=== PATIENT | male | born 1955 | race Caucasian/White ===

== ENCOUNTER → 2020-01-30 15:20 | Outpatient (BNVA) | payer OTHER, SELFPAY | PROVIDERS: PCP Nurse Practitioner Family; Visit Provider Nurse Practitioner | DX: J40 Bronchitis, not specified as acute or chronic (principal); E78.5 Hyperlipidemia, unspecified; J41.0 Simple chronic bronchitis; R05 Cough; J44.1 Chronic obstructive pulmonary disease with (acute) exacerbation; J43.9 Emphysema, unspecified; I25.10 Atherosclerotic heart disease of native coronary artery without angina pectoris; Z87.891 Personal history of nicotine dependence | CPT/HCPCS: 80053; 80061; 85025 ==

== ENCOUNTER → 2021-01-27 09:17 | Outpatient (BNVA) | payer OTHER, SELFPAY | PROVIDERS: PCP Nurse Practitioner Family; Visit Provider Nurse Practitioner Family | DX: E78.5 Hyperlipidemia, unspecified (principal) | CPT/HCPCS: 80061; 84450 ==

== ENCOUNTER → 2021-11-18 16:10 | Outpatient (BNVA) | payer MEDICARE, SELFPAY | PROVIDERS: PCP Nurse Practitioner Family; Visit Provider Nurse Practitioner | DX: J43.9 Emphysema, unspecified (principal); U09.9 Post COVID-19 condition, unspecified | CPT/HCPCS: 71046; 80053; 85025; 85379 ==

== ENCOUNTER → 2023-01-21 10:17 | Outpatient (BNVA) | payer MEDICARE, SELFPAY | PROVIDERS: PCP Nurse Practitioner Family; Visit Provider Nurse Practitioner | DX: J43.9 Emphysema, unspecified (principal); R07.89 Other chest pain | CPT/HCPCS: 71046; 80053; 85025 ==

== ENCOUNTER → 2023-01-22 08:56 | Outpatient (BNVA) | payer MEDICARE, SELFPAY | PROVIDERS: PCP Nurse Practitioner Family; Visit Provider Nurse Practitioner | DX: R73.9 Hyperglycemia, unspecified (principal) | CPT/HCPCS: 83036 ==

== ENCOUNTER 2023-02-04 13:05 | Outpatient (CLI) | payer MEDICARE, SELFPAY ==
--- NOTE | 2023-02-04 13:30 | CTR_ITS ---
PROCEDURE INFORMATION: Exam: CT Chest With Contrast; Diagnostic Exam date and time: 02/04/2023 3:29 PM Age: 67 years old Clinical indication: Abnormal findings; Abnormal radiologic finding of the abdomen; Abnormal radiologic exam of lung or chest; Prior surgery; Surgery type: Gb, coronary; Additional info: R93.89 - abnormal findings on diagnostic imaging of other. . . TECHNIQUE: Imaging protocol: Diagnostic computed tomography of the chest with contrast. Radiation optimization: All CT scans at this facility use at least one of these dose optimization techniques: automated exposure control; mA and/or kV adjustment per patient size (includes targeted exams where dose is matched to clinical indication); or iterative reconstruction. Contrast material: OMNI 350; Contrast volume: 100 ml; Contrast route: INTRAVENOUS (IV); REPORTING DATA: Count of CT and Cardiac NM exams in prior 12 months: This patient has received 0 known CTs and 0 known cardiac nuclear medicine studies in the 12 months prior to the current study. COMPARISON: CR XR chest 2V* [id number] 11/18/2021 4:10 PM RADIATION DOSE METRICS: Total DLP (mGy-cm): 848.74 FINDINGS: Lungs: Left upper lobe 2.6 cm nodule abutting the major fissure. Additional left upper lobe 4.4 mm pulmonary nodule abutting the major fissure, series 3, image 34. Emphysematous changes. Pleural spaces: Unremarkable. No pneumothorax. No pleural effusion. Heart: Unremarkable. No cardiomegaly. No pericardial effusion. Coronary arteries: Coronary artery atherosclerotic calcifications. Lymph nodes: Unremarkable. No enlarged lymph nodes. Vasculature: Unremarkable. No aortic aneurysm. Bones/joints: T7 vertebral body compression fracture without retropulsion of bony fragments with some underlying sclerosis, potentially concerning for metastatic disease given the left upper lobe nodule, MRI could further characterize this. Soft tissues: Unremarkable. PET/CT, or tissue sampling.(Reference: Perla) 2. Emphysematous changes. 3. Coronary artery atherosclerotic calcifications. 4. T7 vertebral body compression fracture without retropulsion of bony fragments with some underlying sclerosis, potentially concerning for metastatic disease given the left upper lobe nodule, MRI could further characterize this. COMMENTS: In the absence of a history or active diagnosis of lung cancer, it is recommended that this patient with emphysema be evaluated for enrollment in a low dose CT lung cancer screening program. REFERENCES: Perla Goodman et al. Guidelines for Management of Incidental Pulmonary Nodules Detected on CT Images: From the Fleischner Society 2017. Radiology. 2017;284(1):228-243. PROCEDURE INFORMATION: Exam: CT Abdomen And Pelvis With Contrast Exam date and time: 02/04/2023 3:29 PM Age: 67 years old Clinical indication: Abnormal findings; Abnormal radiologic finding of the abdomen; Abnormal radiologic exam of lung or chest; Prior surgery; Surgery type: Gb, coronary; Additional info: R93.89 - abnormal findings on diagnostic imaging of other. . . TECHNIQUE: Imaging protocol: Computed tomography of the abdomen and pelvis with contrast. Radiation optimization: All CT scans at this facility use at least one of these dose optimization techniques: automated exposure control; mA and/or kV adjustment per patient size (includes targeted exams where dose is matched to clinical indication); or iterative reconstruction. Contrast material: OMNI 350; Contrast volume: 100 ml; Contrast route: INTRAVENOUS (IV); REPORTING DATA: Count of CT and Cardiac NM exams in prior 12 months: This patient has received 0 known CTs and 0 known cardiac nuclear medicine studies in the 12 months prior to the current study. COMPARISON: CR XR chest 2V* [id number] 11/18/2021 4:10 PM RADIATION DOSE METRICS: Total DLP (mGy-cm): 848.74 FINDINGS: Liver: Hepatic steatosis. Gallbladder and bile ducts: Cholecystectomy. Pancreas: Normal. No ductal dilation. Spleen: Normal. No splenomegaly. Adrenal glands: Right adrenal 23 mm indeterminate nodule, dedicated adrenal imaging could further characterize this. Kidneys and ureters: Two right kidney punctate nonobstructing calyceal stones. Bilateral renal cysts, negative for follow-up advised. Stomach and bowel: Constipation. Constipation. Appendix: No evidence of appendicitis. Intraperitoneal space: Unremarkable. No free air. No significant fluid collection. Vasculature: Unremarkable. No abdominal aortic aneurysm. Lymph nodes: Unremarkable. No enlarged lymph nodes. Urinary bladder: Unremarkable as visualized. Reproductive: Unremarkable as visualized. Bones/joints: Unremarkable. No acute fracture. Soft tissues: Unremarkable. CT/CT chest abdpel w/*[id number] IMPRESSION: 1. Left upper lobe 2.6 cm nodule abutting the major fissure. Highly suspicious nodule(s). Additional left upper lobe 4.4 mm pulmonary nodule abutting the major fissure, series 3, image 34. Consider non-emergent IMPRESSION: 1. Right adrenal 23 mm indeterminate nodule, dedicated adrenal imaging could further characterize this. 2. Hepatic steatosis. 3. Cholecystectomy. 4. Constipation. 5. Two right kidney punctate nonobstructing calyceal stones. 6. Bilateral renal cysts, negative for follow-up advised. 7. Constipation. COMMENTS: Consistent with the [employer] [employer]'s Incidental Findings Committee white paper (J Am Tiara Radiol 2018): Any incidental renal lesion less than 1 cm or classified as too small to characterize, or any incidental cystic renal lesion characterized as simple-appearing, is likely benign. No follow-up imaging is recommended for these lesions per consensus recommendations based on imaging criteria.
[2023-02-04] MEDS: iohexol 350 mg/mL 500 mL Btl (per mL) IV (15:26)
[2023-02-04] MEDS: iohexol 350 mg/mL 500 mL Btl (per mL) PO (15:27)
== END 2023-02-04 13:06 | disposition home or self-care (01) ==
PROVIDERS: PCP Nurse Practitioner Family; Visit Provider Nurse Practitioner
DX: R93.89 Abnormal findings on diagnostic imaging of other specified body structures (principal); Z87.891 Personal history of nicotine dependence; R91.8 Other nonspecific abnormal finding of lung field; K76.0 Fatty (change of) liver, not elsewhere classified; Z90.49 Acquired absence of other specified parts of digestive tract; K59.00 Constipation, unspecified; N20.0 Calculus of kidney; N28.1 Cyst of kidney, acquired
CPT/HCPCS: 71260; 74177; Q9967

== ENCOUNTER 2023-02-09 12:25 | Outpatient (CLI) | payer MEDICARE, SELFPAY ==
--- NOTE | 2023-02-09 13:00 | MR_ITS ---
WS: [id number] MRI THORACIC SPINE noncontrast. HISTORY: S22.000A - Wedge compression fracture of unspecified thor... COMPARISON: CT 02/04/2023 TECHNIQUE: Multiplanar sequences are performed in sagittal and axial planes. Moderate increase in thoracic kyphosis. Posterior alignment is otherwise normal. Diffuse increased T2 signal throughout the seventh thoracic vertebral body. No retropulsion. Mild anterior wedging by 10% . Normal signal within the cord. T1-2: Normal. T2-3: Normal. T3-4: Bilateral facet arthritis. T4-5: Normal. T5-6: Mild facet joint arthritis. T6-7: Normal. T7-8: Bilateral facet joint arthritis. T8-9: Normal. T9-10: Moderate facet joint arthritis encroaching towards the thecal sac. T10-11: Moderate bilateral facet joint arthritis encroaching into the thecal sac. Mild central and f oraminal stenosis. T11-12: Bilateral facet joint arthritis. Mild foraminal narrowing. Mild thickening and nodularity of the RIGHT adrenal gland. MR/MR thoracic spin wo con* [id number] IMPRESSION: 1. Acute 10% compression fracture T7 with no retropulsion. 2. Additional facet joint arthritis throughout the thoracic spine as above. 3. Mild central and bilateral foraminal stenosis at T10-11. 4. Moderate increase in thoracic kyphosis.
== END 2023-02-09 12:26 | disposition home or self-care (01) ==
PROVIDERS: PCP Nurse Practitioner; Visit Provider Nurse Practitioner
DX: S22.000A Wedge compression fracture of unspecified thoracic vertebra, initial encounter for closed fracture (principal); X58.XXXA Exposure to other specified factors, initial encounter; M47.814 Spondylosis without myelopathy or radiculopathy, thoracic region; M48.04 Spinal stenosis, thoracic region; M40.294 Other kyphosis, thoracic region
CPT/HCPCS: 72146

== ENCOUNTER 2023-03-06 05:51 | Outpatient (CLI) | payer MEDICARE, SELFPAY ==
--- NOTE | 2023-03-06 | PETR_ITS ---
PROCEDURE INFORMATION: Exam: PET/CT Skull Base to Mid-thigh Exam date and time: 03/06/2023 10:20 AM Age: 67 years old Clinical indication: Screening exam; Prior surgery; Surgery date: 6+ months; Surgery type: Gb, coronary; Additional info: Nonspecific findings of lung field LABS AND CLINICAL REPORTS: Glucose: 128 mg/dl Treatment strategy for malignancy (PET staging): Initial Staging (PI) TECHNIQUE: Imaging protocol: Following at least four-hour fasting and following the injection of radiopharmaceutical, low dose CT images were obtained. Then, PET images were obtained. Attenuation corrected images were constructed using the CT scan. Fused images of PET and CT were reviewed. The standardized uptake values (SUV) reported below are maximum values within a region of interest, expressed in gm/ml. Exam includes orbital meatal line to mid-thigh. Radiopharmaceutical: 10.98 mCi F-18 FDG (Fluorodeoxyglucose), IV. Time of imaging post radiopharmaceutical administration: 59.1 minutes. Injection site: Not specified. COMPARISON: CT chest abdpel 02/04/2023. FINDINGS: Brain: Visualized brain has normal physiologic uptake. Pharynx: No abnormal uptake. Larynx: No abnormal uptake. Lungs, pleura and trachea: In the right upper lobe, in the posteroinferior aspect of the apicoposterior segment, a hypermetabolic malignant mass abuts the major fissure. It is 2.5 x 2.0 x 2.2 cm (transverse x ant-post x craniocaudal) (axial image 72). Its SUV max is 8.9. The lungs are otherwise clear. Bilateral hilar and mediastinal calcifications indicate remote granulomatous disease. There are scattered small calcified granulomas in both lungs. Heart: Normal physiologic uptake. Mediastinal space: No abnormal uptake. Liver: Contrary to the previous report, there is no hepatic steatosis. Mean hepatic density is 57 HU. No hepatic mass. Gallbladder and bile ducts: Cholecystectomy. Pancreas: No abnormal uptake. Spleen: No splenomegaly. No abnormal uptake. Multiple splenic calcifications are consistent with remote granulomatous disease. Adrenal glands: A right adrenal metastasis is 3.1 x 2.0 x 3.2 cm (transverse x ant-post x craniocaudal). Its SUVmax is 10.2. The left adrenal is normal. Kidneys and ureters: There are three 2 mm nonobstructing calyceal stones in the right kidney. Simple appearing renal cysts. Four cysts in the left kidney measure between 1.1 and 1.5 cm. The kidneys and ureters are otherwise unremarkable. Stomach and bowel: No abnormal uptake. Vasculature: There is moderate calcific atherosclerosis of the abdominal aorta and iliac arteries. There is no aneurysm. Lymph nodes: Left hilar malignant lymphadenopathy has a short axis of 1.1 cm and an SUV max of 8.0. There are no other FDG avid lymph nodes in the neck, chest, abdomen or pelvis. Bones/joints: A metastasis throughout the T7 vertebral body and left pedicle has an SUV max of 14.2. It is 3.1 x 3.3 x 2.5 cm (transverse x ant-post x craniocaudal). There is a 25% anterior wedge compression pathologic fracture of the T7 vertebral body. Posterior vertebral height is maintained. Mild concave T7 superior endplate fracture. A metastasis in the right L5 pedicle and transverse process is 3.2 x 1.6 x 1.3 cm. Its SUVmax is 8.6. Soft tissues: No metabolically active areas. [id number] IMPRESSION: 1. In the right upper lobe, a 2.5 cm malignant tumor has an SUV max of 8.9. 2. Left hilar malignant lymphadenopathy has SUV max of 8.0. 3. A 3.3 cm metastasis in T7 vertebra has an SUV max of 14.2. There is a 25% anterior compression pathologic fracture. 4. A 3.2 cm right adrenal metastasis has an SUV max of 10.2. 5. A 3.2 cm metastasis in the right L5 pedicle and transverse process has an SUV max of 8.6.
== END 2023-03-06 05:52 | disposition home or self-care (01) ==
PROVIDERS: PCP Nurse Practitioner; Visit Provider Nurse Practitioner
DX: C34.11 Malignant neoplasm of upper lobe, right bronchus or lung (principal); C77.1 Secondary and unspecified malignant neoplasm of intrathoracic lymph nodes; C79.71 Secondary malignant neoplasm of right adrenal gland; C79.51 Secondary malignant neoplasm of bone
CPT/HCPCS: 78815; A9552

== ENCOUNTER → 2023-03-23 13:18 | Outpatient (BNVA) | payer MEDICARE, SELFPAY | PROVIDERS: PCP Nurse Practitioner; Visit Provider Orthopaedic Surgery | DX: S22.000A Wedge compression fracture of unspecified thoracic vertebra, initial encounter for closed fracture (principal); W14.XXXA Fall from tree, initial encounter | CPT/HCPCS: 72070; 99204 ==

== ENCOUNTER 2023-03-23 14:00 | Oncology outpatient (recurring) (ONCR) | payer MEDICARE, SELFPAY ==
[2023-03-23 14:45] VITALS: BP 142/82; PULSE 79; RESP 18; TEMP 36.5; O2SAT 95
== END 2023-04-16 23:59 | disposition home or self-care (01) ==
PROVIDERS: PCP Nurse Practitioner; Visit Provider Internal Medicine Medical Oncology
DX: Z01.818 Encounter for other preprocedural examination (principal)
CPT/HCPCS: 36415; 99205

== ENCOUNTER → 2023-03-31 10:02 | Outpatient (BNVA) | payer MEDICARE, SELFPAY | PROVIDERS: PCP Nurse Practitioner; Visit Provider Family Medicine | DX: Z01.818 Encounter for other preprocedural examination (principal); E11.65 Type 2 diabetes mellitus with hyperglycemia | CPT/HCPCS: 80053; 83036; 85025 ==

== ENCOUNTER 2023-04-09 07:16 | Day surgery (SDC) | payer MEDICARE, SELFPAY ==
[2023-04-02 10:18] VITALS: BMI 25.2
--- NOTE | 2023-04-02 13:28 | P.ANESASSM_ITS ---
Pre-Anesthetic Assessment Height/Weight: Height 1.83 m Weight 84.368 kg Operation Date: 04/09/23 11:00 Proposed Procedures p Kyphoplasty with osteocool with biopsy:[id number],S22.000A(Not Applicable) - Ronal Cerda, Social Tobacco Airway Submandibular: within normal limits Cervical ROM: within normal limits Mallampati: Class II Pulmonary Chronic Obstructive Pulmonary Disease CV/HEM Coronary Artery Disease (s/p stents) and Hypertension Metabolic Diabetes Mellitus and Hyperlipidemia Musc/el Lower Back Pain and Osteoarthritis/DJD Anesthetic Plan ASA status: 3 Anesthesia: General Medications/Allergies Home Medications Medication Instructions Recorded Confirmed Last Taken Type albuterol sulfate 90 mcg/actuation 2 puff inhalation Q6H PRN 01/30/20 04/02/23 Unknown Rx aerosol inhaler (ProAir HFA) shortness of breath or wheezing #18 grams atorvastatin 40 mg tablet (Lipitor) 40 mg PO DAILY 01/30/20 04/02/23 04/01/23 History Disposable nebulizer circuit #1 ea 11/18/21 03/31/23 Unknown Rx nebulizers #1 ea 11/18/21 03/31/23 Unknown Rx fluticasone fur. 100 mcg-umeclid 1 inh inhalation Q24H #60 ea 01/21/23 04/02/23 04/02/23 Rx 62.5 mcg-vilant 25 mcg inhalat.powder (Trelegy Ellipta) blood sugar diagnostic (OneTouch #50 ea 01/25/23 03/31/23 Unknown Rx Ultra Test strips) blood-glucose meter (OneTouch #1 ea 01/25/23 03/31/23 Unknown Rx Ultra2 Meter kit) lancets (OneTouch UltraSoft #100 ea 01/25/23 03/31/23 Unknown Rx Lancets) metoprolol tartrate 100 mg tablet 25 mg PO BID 02/08/23 04/02/23 04/02/23 History aspirin 81 mg tablet,delayed 81 mg PO BID 03/18/23 04/02/23 04/02/23 History release lisinopril 10 1 tab PO DAILY 03/18/23 04/02/23 04/01/23 History mg-hydrochlorothiazide 12.5 mg tablet Allergies Allergy/AdvReac Type Severity Reaction Status Date / Time amoxicillin Allergy Severe ALGY-Rash Verified 03/31/23 13:54 Penicillins Allergy Severe ALGY-Rash Verified 03/31/23 13:54 bupropion [From Wellbutrin] AdvReac Severe ADR-Itching Verified 03/31/23 13:54 [facility] Anesthesia Medical History COPD (chronic obstructive pulmonary disease) with emphysema Coronary artery disease Diabetes mellitus with hyperglycemia, without long-term current use of insulin Hypertension Personal history of nicotine dependence Surgical History History of appendectomy History of cholecystectomy History of coronary artery stent placement Family History Other CAD (coronary artery disease) Cancer Hyperlipidemia Hypertension Denies family history of Bleeding disorder Social History Smoking and tobacco status: heavy tobacco smoker cigarettes Packs smoked per day: 2 [ Other cigarette details: smoked x 50+ years] Second hand smoke exposure: Yes Smoking risk assessment/counseling performed?: No Alcohol intake: current Alcohol intake frequency: holidays/special occasions only Desire information about alcohol rehabilitation?: No Counseling given: No Substance/Drug Use: unknown Desire information about substance/drug rehabilitation?: No Counseling given: No Adopted: No Caregiver/support person: No Lives independently: Yes Household members: none Housing: House Marital status: Number of children: 1 Number of grandchildren: 3 service: No Current occupational status: retired Do you think of yourself as: Straight/Heterosexual Current gender identity: Male Data Anesthesia Cardiac Studies: No Data to Display
[2023-04-09] VITALS (10 sets, daily range): BP systolic 95–125; BP diastolic 57–77; PULSE 74–96; RESP 16–20; TEMP 36.1–36.6; O2SAT 89–97
--- NOTE | 2023-04-09 07:19 | SC_ITS ---
WS: [id number] Exam: C-arm FL for Kyphoplasty Date/Time of Exam: 04/09/2023 7:19 AM Reason For Exam: T7 kyphoplasty AP and lateral intraoperative C-arm images of the upper T-spine are submitted for evaluation. The leno ges depict kyphoplasty involving the T7 vertebral body.
[2023-04-09 07:49] LABS: Glucose Point of Care 111 mg/dL (70-110)
[2023-04-09] MEDS: sodium chloride 0.9% 1,000 ML 30 ML IV (07:51)
--- NOTE | 2023-04-09 08:01 | W.PM.OPSUD ---
Surgery/Procedure H&P Update DATE OF PROCEDURE: April 09, 2023 DATE H&P PERFORMED: 03/24/23 H&P UPDATE INFORMATION: I have reviewed H&P completed within last 30 days, I have examined patient prior to procedure and No changes to prior documentation PREOP DIAGNOSIS: Thoracic 7 compression fracture with lytic lesion PLANNED PROCEDURE: Operation Date: 04/09/23 09:00 Proposed Procedures p T7 Kyphoplasty with osteocool with biopsy:[id number],S22.000A(Not Applicable) - Ronal Cerda DO
--- NOTE | 2023-04-09 09:06 | P.ANESUD_ITS ---
Pre-Anesthetic Update Pre-Anesthetic Assessment: Date of Surgery/Procedure: 04/09/23 Preop Abigail gnosis: Thoracic 7 compression fracture with lytic lesion Proposed Procedure: Operation Date: 04/09/23 09:00 Proposed Procedures p T7 Kyphoplasty with osteocool with biopsy:[id number],S22.000A(Not Applicable) - Ronal Cerda, DO Any changes to Pre-Anesthetic Assessment?: No Last Intake: Intake Last Liquid Date 04/08/23 Last Liquid Time 22:30 Last Solid Date 04/08/23 Last Solid Time 22:30 Vitals: Pulse Rhythm Regular 04/09/23 07:32 Pulse Strength 3+ Normal 04/09/23 07:32 Oxygen Delivery Me thod Room Air 04/09/23 07:32 Exam: Pre-Anes Outpt Exam: alert, oriented x 3, clear to auscultation bilaterally and regular rate & rhythm Cardiac Studies: No Data to Display
[2023-04-09] MEDS: clindamycin 600 MG/50 ML PREMIX 100 MG IV (09:09)
[2023-04-09] MEDS: clindamycin 300 MG/50 ML PREMIX 100 MG IV (09:39)
[2023-04-09] MEDS: lidocaine-epi 2% 20 mL INJ 10 ML INJECTION (09:52)
--- NOTE | 2023-04-09 10:23 | P.OP_ITS ---
Operative Report Date of procedure: April 09, 2023 Pre-op diagnosis: Preop Diagnosis Thoracic 7 pathologic wedge compression fracture with lytic lesion Post-op diagnosis: same Procedure done: 1. T7 biopsy 2. T7 Kyphoplasty 3. T7 Radiofrequncy ablation of T7 tumor Pathology: T7 biopsy Surgeon: Ronal Cerda Diamond Sorter: none Estimated blood loss (mL): 10 Procedure: 1. T7 biopsy 2. T7 Kyphoplasty 3. T7 Radiofrequncy ablation of T7 tumor Patient read after undergoing anesthesia was placed in the prone position all areas of pressure well-padded. Patient was then prepped draped normal sterile fashion. C-arm was brought in to identify the T7 level was done on both AP lateral fluoroscopy. Skin incision made over the left pedicle the awl was inserted and then the biopsy probe was inserted biopsy was pulled out and sent to pathology as a T7 biopsy. Drill was then used. Drill was pulled out skin incision made on the right side with all passed through the pedicle and then the drill was passed through. The radiofrequency ablation was 2 wires were passed for repair with the radiofrequency ablation of the T7 tumor. Once the wires were passed the system was turned on room for 9 minutes and then the wires were pulled. Next balloons were passed inflated and deflated. And then the cement was Marquis passed. Cement was placed into the fractured vertebrae using both AP lateral fluoroscopy. AP lateral taken 1-2 was removed ensure that the spine was improved position. Wounds were irrigated and nylon sutures were placed. Sterile dressing applied and patient was transferred the PACU in stable addition.
[2023-04-09] MEDS: fentaNYL 50 mcg/mL INJ 2mL IVP (10:43)
[2023-04-09] MEDS: HYDROmorphone 1 mg/mL INJ 1 mL 0.5 MG IVP (11:25)
[2023-04-09] MEDS: HYDROcodone-acetaminophen 5-325 mg Tablet 2 TAB PO (11:33)
[2023-04-09] MEDS: ipratropium-albuterol 3 mL Neb INHALATION (11:40)
--- NOTE | 2023-04-09 12:29 | SUR.PHASEII ---
11:40 PATIENT WITH BILATERAL WHEEZES. DUONEB GIVEN. 12:00 PATIENT WITH RELIEF OF WHEEZES AND MODERATE RELIEF OF BACK PAIN.
--- NOTE | 2023-04-09 13:43 | ANE.PACU2 ---
Inpatient post-anesthesia follow up: Airway intact: Yes Vital signs: Temperature 97.9 F Pulse Rate 74 Respiratory Rate 16 Blood Pressure 102/58 Pulse Oximetry 97 Oxygen Delivery Me thod Room Air Oxygen Flow Rate 2 Fraction of Inspir ed Oxygen Hydration adequate: Yes Nausea and vomiting: No Pain level: 3 Mental status: Baseline
[2023-04-19 11:17] LABS: PD-L1 (Clone 22C3) by IHC BBPL See Report
== END 2023-04-09 12:15 | disposition home or self-care (01) ==
PROVIDERS: PCP Nurse Practitioner; Visit Provider Orthopaedic Surgery
PROC: (CPT 20982; principal; 2023-04-09 09:00)
DX: M84.58XA Pathological fracture in neoplastic disease, other specified site, initial encounter for fracture; J44.9 Chronic obstructive pulmonary disease, unspecified; I25.10 Atherosclerotic heart disease of native coronary artery without angina pectoris; Z95.5 Presence of coronary angioplasty implant and graft; I10 Essential (primary) hypertension; E11.9 Type 2 diabetes mellitus without complications; E78.5 Hyperlipidemia, unspecified; Z79.82 Long term (current) use of aspirin; C41.2 Malignant neoplasm of vertebral column; F17.210 Nicotine dependence, cigarettes, uncomplicated
CPT/HCPCS: 20982; 22513; 36416; 76000; 82962; 88307; 88311; 88341; 88342; J0131; J1100; J1170; J2405; J2704; J2710; J3010; J3490; J7030

== ENCOUNTER 2023-04-15 08:33 | Outpatient (CLI) | payer MEDICARE, SELFPAY ==
--- NOTE | 2023-04-15 09:30 | MR_ITS ---
WS: [id number] MRI THORACIC SPINE WITH CONTRAST TECHNIQUE: Sagittal T1, T2 and STIR imaging. Axial T2 imaging. Post gadolinium imaging was obtained. CLINICAL INFORMATION: staging COMPARISON: MRI January 20, 2023 FINDINGS: Some images degraded by motion. Again seen is the T7 compression fracture with anterior wedging and interval kyphoplasty changes. No new acute appearing compression fractures. Replacement of the normal bone marrow signal extending int o the pedicles and posterior elements bilaterally compatible with metastatic disease in this location as seen on the prior PET/CT with associated enhancement in the pedicles today. Associated soft tissu e paravertebral enhancement at the T7 level. There is associated mild diffuse circumferential epidural and neural foraminal enhancement extending from T6 through T8 more prominent at the T7 level. Associated mild central canal stenosis. Cord signa l remains normal. Replacement normal bone marrow signal with enhancement extending into the LEFT T5 pedicle compatible with metastatic disease. Moderate thoracic kyphosis. Known LEFT lower lobe pulmonary mass. Normal caliber thoracic aorta. Part ially visualized RIGHT adrenal metastasis. MR/MR thoracic spine wo/w [id number] IMPRESSION: Images limited by motion 1. Moderate thoracic kyphosis with T7 compression fracture and kyphoplasty korin nges. 2. Enhancement extending into the T7 pedicles bilaterally compatible with bony metastatic disease. 3. Mild diffuse epidural enhancement extending from T6 through T8 worse at T7 with mild central canal stenosis. 4. Replacement of the normal fatty T1 bone marrow signal with enhancement invo lving the LEFT T5 pedicle compatible with additional focus of metastatic diseas e. 5. Associated paravertebral soft tissue enhancement at the T7 level compatible with metastatic disease 6. No other suspicious findings considering motion artifact.
--- NOTE | 2023-04-15 10:15 | MR_ITS ---
WS: [id number] MRI LUMBAR SPINE WITH CONTRAST TECHNIQUE: Sagittal T1, T2 and STIR imaging. Axial T1 and T2 imaging. Post gadolinium imaging was obt ained. CLINICAL INFORMATION: staging COMPARISON: PET/CT March 06, 2023 FINDINGS: Mild lumbar curve. No acute compression. No high-grade central canal stenosis. Normal bone marrow sig nal. No evidence of enhancing metastatic disease in the lumbar spine were lumbar canal. Diffuse replacement normal bone marrow signal involving the L5 vertebral body eccentric to the RIGHT with diffuse enhancement extending into the RIGHT pedicle compatible with metastatic disease. Associa maria eugenia soft tissue paravertebral enhancement. Enhancement extends into the RIGHT L5-S1 neural foramen wi th a small amount of epidural enhancement. Enhancement involves the RIGHT aspect of the L5 vertebral body extending into the RIGHT pedicle and transverse process and posterior elements. Associated parav ertebral enhancement abutting the RIGHT psoas with soft tissue thickening. This extends into the RIGH T paravertebral and sacral soft tissues adjacent to the SI joint. L1-L2: Normal. L2-L3: Mild facet arthropathy. Spinal canal and foramen are patent. L3-L4: Mild facet arthropathy. Mild LEFT foraminal narrowing. L4-L5: Mild annular bulging. Mild facet arthropathy. Mild LEFT foraminal narrowing. Spinal canal is p atent. L5-S1: Mild annular bulging with slight effacement of ventral thecal sac and endplate ridging. Mild R IGHT greater than LEFT foraminal narrowing. Mild facet arthropathy. Partially evaluated small bilateral renal cysts. Partially visualized RIGHT adrenal metastasis. MR/MR lumbar spine wo/w con [id number] IMPRESSION: 1. Enhancing metastatic disease involving the RIGHT L5 vertebral body with ass ociated paravertebral soft tissue component extending into the RIGHT L5 neural foramen with a small amount of epidural enhancement. In addition this extends i nto the RIGHT L5 posterior elements and paravertebral soft tissues abutting the RIGHT psoas and involving the RIGHT erector spinae muscle. Extension to the ma rgin of the RIGHT iliacus 2. This appears progressed compared to the prior PET/CT.
[2023-04-15] MEDS: gadobenate dimeglumine 20 mL vial IV (10:46)
== END 2023-04-15 08:34 | disposition home or self-care (01) ==
PROVIDERS: PCP Nurse Practitioner; Visit Provider Internal Medicine Medical Oncology
DX: C79.51 Secondary malignant neoplasm of bone (principal); C34.12 Malignant neoplasm of upper lobe, left bronchus or lung; M40.294 Other kyphosis, thoracic region
CPT/HCPCS: 72157; 72158; A9577

== ENCOUNTER 2023-04-19 16:17 | Outpatient (CLI) | payer MEDICARE, SELFPAY ==
--- NOTE | 2023-04-19 16:29 | MR_ITS ---
WS: [id number] MRI BRAIN WITH AND WITHOUT CONTRAST HISTORY: History of lung cancer. COMPARISON: None available. TECHNIQUE: Multiplanar imaging performed through the brain with MultiHance 19 ml's IV. Imaging quality is suboptimal. Patient moved throughout the examination. No acute infarcts are seen. [place]-white matter differentiation is well preserved. No significant signa l abnormality or small vessel ischemic disease on the FLAIR sequence but small areas may not be visua lized due to the motion. There is no large territory infarct or edema. No susceptibility artifacts or prior lacunar infarcts. Ventricles and extra-axial spaces are normal. Clivus and pituitary gland are normal. Visualized posterior fossa and brainstem are also normal. No enhancing masses are identified. Suboptimal imaging due to motion and movement throughout the exam ination. Prominent venous angioma posterior LEFT frontal parietal junction. Dural venous sinuses are normal. Paranasal sinuses: Well aerated with no significant disease. Mastoid air cells: Normal. Calvarium and scalp: Normal. MR/MR head wo/w con [id number] IMPRESSION: 1. Suboptimal evaluation of the brain due to motion artifact throughout the en tire examination. 2. No metastatic lesions are identified. Small lesions may be obscured with th is amount of motion. 3. LEFT frontoparietal junction venous angioma. 4. No hydrocephalus.
[2023-04-19] MEDS: gadobenate dimeglumine 20 mL vial IV (17:12)
== END 2023-04-19 16:18 | disposition home or self-care (01) ==
LOC: RAD 16:18
PROVIDERS: PCP Nurse Practitioner; Visit Provider Internal Medicine Medical Oncology
DX: C34.12 Malignant neoplasm of upper lobe, left bronchus or lung (principal); D18.02 Hemangioma of intracranial structures
CPT/HCPCS: 70553; A9577

== ENCOUNTER → 2023-04-27 13:33 | Outpatient (BNVA) | payer MEDICARE, SELFPAY | PROVIDERS: PCP Nurse Practitioner; Visit Provider Orthopaedic Surgery | DX: Z48.89 Encounter for other specified surgical aftercare (principal) | CPT/HCPCS: 99024 ==

== ENCOUNTER 2023-05-13 08:30 | Oncology outpatient (recurring) (ONCR) | payer MEDICARE, SELFPAY ==
--- NOTE | 2023-04-22 14:46 | N.ONRAD NP_ITS ---
Radiation Oncology Consultation Patient Name: Oleg Cristina Date of : 1955 Date of Service: 04/22/2023 Attending Physician: Darion Costello M.D. Oleg Cristina was seen in consultation this morning at the request of Josue Stevenson M.D. for palliative radiotherapy regarding a recently diagnosed metastatic lung cancer. He was evaluated following a fall for left lower rib cage pain. A chest radiograph obtained on January 21, 2023 identified an ill-defined mass during 2 cm x 1.1 cm within the left upper lung. An abdominopelvic CT scan completed on February 04, 2023 described a 2.6 cm left upper-lobe nodule abutting the major fissure, a 4.4 mm left upper-lobe lesion, and a T7 vertebral body compression fracture. A thoracic MRI scan ordered on February 09, 2023 reported moderate kyphosis and diffuse increased T2 signal within the T7 vertebral body. Normal signal was noted within the spinal cord. A PET scan (independently reviewed in [facility]) requested on March 06, 2023 confirmed FDG activity within the left upper-lobe mass (SUV 8.9), left hilar lymphadenopathy (SUV 8), a right adrenal metastasis measuring 3.1 cm x 2 cm x 3.2 cm (SUV 10.2), a T7 vertebral body metastasis (SUV 14.2), and hypermetabolic activity within the right L5 pedicle (SUV 8.6). A T7 kyphoplasty with radiofrequency ablation of the tumor was performed by Ronal Cerda D.O. on April 09, 2023. The biopsy submitted diagnosed a metastatic non-small cell carcinoma. The patient was evaluated for palliative radiotherapy. I discussed with Mr. Cristina the role for radiotherapy in the setting of vertebral body metastases. I would recommend a 1-week course of radiation therapy. A CT scan will be acquired for radiotherapy planning prior to beginning treatment to delineate the clinical tumor volume. The patient has verbalized understanding would like to proceed as recommended. . His medical treatment plan has been discussed with Josue Stevenson M.D. Signed by: Dr. Darion Costello 04/22/2023 2:46:03 PM
--- NOTE | 2023-05-06 17:33 | ONCRAD TMN_ITS ---
Radiation Oncology Weekly Treatment Management Patient: Mare Dejesus> MR#: [id number] : 1955> Attending Physician: Chico Calderon Date of Service: 05/06/2023 Referring Physician(s) : Dr. Josue Lee Diagnosis: C79.51 - Secondary malignant neoplasm of bone, Diagnosed 04/09/2023 (Active) Radiotherapy to date: Course: Bone Mets 2022, Treatment Site: T-Spine Mets - T7, Ref. ID: CTV, Energy: 15X, Dose/Fx (cGy): 400, #Fx: 3 / 5, Dose Correction (cGy): 0, Total Dose (cGy): 1,200, Start Date: 05/04/2023,Elapsed Days: 2 Reason for visit: The patient is being seen today as part of their regularly scheduled weekly on treatment visits to assess for acute toxicities from radiotherapy. Review of Systems: Mr. Cristina is concerned about a left foot drop. He had a kyphoplasty of T7 area about a month ago. He developed a foot drop between 2 and 3 weeks ago. He states that when he walks his heel lands normally but he cannot control the front of his foot and it slaps down to the ground. He is not dragging the toe or tripping and is not at risk of falling. He has no pain in the left lower extremity. He does mention that he has had some right hip pain, but states that developed about 3 years ago and has been stable. No problems with the right lower extremity. I reviewed his imaging. He had an MRI of the thoracic spine after his kyphoplasty for a wedge compression fracture at T7. The MRI does not show any displacement of bone or cement into the spinal canal. There is no compromise of the cord or the epidural space. This is the area under treatment. His MRI of the lumbar spine shows a metastatic lesion involving the pedicle of L5. Except for the chronic pain that the patient has had in his right hip area that is totally unchanged, there are no symptoms in the right lower back, pelvis, or right lower extremity. The patient's PET scan was reviewed. No metastatic lesions seen in the right hip area. Physical Exam: The patient got on and off the exam table without assistance. His gait was normal. He had no tenderness of the spine, either at the area of T7 or at L5. The right hip was completely nontender to palpation and percussion. Strength was normal in the lower extremities except for dorsiflexion of the left foot. Imaging: Radiation therapy imaging related to accurate target localization (i.e. KV, MV and CBCT) was reviewed. Appropriate changes, if any, were made to ensure treatment accuracy. Plan: Continue with treatment. We discussed the foot drop. I do not feel that he needs any type of brace since he is not at any risk of falling. I told him I do not know if it will improve. We discussed that it may be due to the kyphoplasty procedure, but that is not a certainty by any means. It happened well before radiation began. I doubt radiation will have any impact. I told him that I do not think a course of steroids is likely to be helpful. He was satisfied with the explanation. Signed by: Chico Calderon 05/06/2023 5:32:57 PM
--- NOTE | 2023-05-11 15:57 | ONCRAD TMN_ITS ---
Radiation Oncology Weekly Treatment Management/ Treatment Summary Patient: Mare Rahman MR#: [id number] : 1955> Attending Physician: Chico Calderon Date of Service: 05/11/2023 Referring Physician(s) : Dr. Josue Lee Diagnosis: C79.51 - Secondary malignant neoplasm of bone, Diagnosed 04/09/2023 (Active) Radiotherapy to date: Course: Bone Mets 2022, Treatment Site: T-Spine Mets - T7, Ref. ID: CTV, Energy: 15X, Dose/Fx (cGy): 400, #Fx: 5 / 5, Dose Correction (cGy): 0, Total Dose (cGy): 2,000, Start Date: 05/04/2023, End Date: 05/11/2023, Elapsed Days: 7 Reason for visit: The patient is being seen today as part of his regularly scheduled weekly on treatment visits to assess for acute toxicities from radiotherapy. Review of Systems: He has completed 2000 cGy in 5 fractions to the T6-T8 area. He had no side effects from treatment. He has recently been troubled with a left foot drop. It has improved slightly since I talked to him about it last week. He still has weakness on dorsiflexion of the foot. He has not had any falls or near falls. MRI of the spine does not show any displaced cement or bone fragments. He is neurologically intact other than foot drop. Vital Signs: Performed on 05/11/2023 3:25 PM BMI - 24.548 kg/m2 (high), Height - 72 in, Weight - 181 lbs, Temperature - 98.4 f, Pulse - 78 /min, Respiration - 18 /min, O2 Sat - 92 % (low), Pain - 0, Fatigue - 0 and BP - 102/ 61 mm(hg)(/low). Physical Exam: Alert, oriented, no acute distress. He is gait is near normal. He has excellent strength in the hands, arms, and legs. Dorsiflexion is normal on the right but there is weakness on the left. This is a stable finding compared to last week. Lungs clear to auscultation. Heart rhythm regular. Imaging: Radiation therapy imaging related to accurate target localization (i.e. KV, MV and CBCT) was reviewed. Appropriate changes, if any, were made to ensure treatment accuracy. Plan: He will have a port placed May 18 and then will begin systemic therapy. He will return to the radiation center on an as-needed basis. Signed by: Chico Calderon 05/11/2023 3:56:18 PM
[2023-05-13 08:33] VITALS: BP 108/61; PULSE 82; RESP 18; TEMP 36.6; O2SAT 94
[2023-05-13 08:36] VITALS: BMI 24.8
[2023-05-13 08:55] LABS: Basophils # 0.1 10^3/uL (0.0-0.1); Basophils % 0.8 %; Eosinophils # 0.3 10^3/uL (0.0-0.8); Eosinophils % 2.6 %; Hematocrit 51.4 % (42.0-52.0); Hemoglobin 16.9 g/dL (11.7-16.6); Lymphocytes # 2.4 10^3/uL (0.8-4.8); Lymphocytes % 22.2 %; Mean Corpuscular HGB Conc 32.9 g/dL (30.0-36.0); Mean Corpuscular Hemoglobin 28.1 pg (28.0-34.0); Mean Corpuscular Volume 85.4 fl (80-94); Mean Platelet Volume 8.8 fL (7.4-10.4); Monocytes # 0.5 10^3/uL (0.2-0.9); Monocytes % 4.9 %; Neutrophils # 7.33 10^3/uL (1.8-7.7); Nucleated Red Blood Cells % 0 %; Platelet Count 226 10^3/cmm (130-400); Red Blood Count 6.02 10^6/uL (4.1-5.3); Red Cell Distribution Width 13.8 % (12.1-15.1); White Blood Count 10.6 10^3/uL (4.0-10.0)
[2023-05-13 09:26] LABS: Alanine Aminotransferase 9 U/L (0-41); Albumin Level 4.1 g/dL (3.5-5.2); Alkaline Phosphatase 147 U/L (40-130); Blood Urea Nitrogen 10 mg/dL (8-23); Carbon Dioxide 30 mmol/L (22-29); Chloride 90 mmol/L (98-107); Globulin 3.6 g/dL (1.3-4.6); Glomerular Filtration Rate 134.4 mL/min (90-130); Glucose 163 mg/dL (65-115); Immunoglobulin IGG 1211 mg/dL (700-1600); Osmolality Calculated 277 mOsm/kg (285-295); Sodium 132 mmol/L (136-145); Total Bilirubin 0.5 mg/dL (0.15-1.2); Total Protein 7.7 g/dL (6.6-8.7)
[2023-05-13 09:27] LABS: Anion Gap 16.1 (5-19); Potassium 4.1 mmol/L (3.5-5.1)
[2023-05-13 09:28] LABS: Aspartate Amino Transferase 13 U/L (0-40)
[2023-05-13 09:31] LABS: Cortisol Random 12.94 ug/dL (2.47-19.5); Hepatitis A Antibody IgM Non-Reactive (Nonreactive); Hepatitis B Core AB, Total Non-Reactive (Nonreactive); Hepatitis B Surface Antigen Non-Reactive (Nonreactive); Hepatitis C Virus Antibody Non-Reactive (Nonreactive)
[2023-05-13 09:32] LABS: Hepatitis B Surface AB < 3.5 (11.5-1000)
== END 2023-05-17 23:59 | disposition home or self-care (01) ==
PROVIDERS: Internal Medicine Medical Oncology; PCP Nurse Practitioner; Visit Provider Specialist
DX: C34.12 Malignant neoplasm of upper lobe, left bronchus or lung (principal); C78.01 Secondary malignant neoplasm of right lung; C79.71 Secondary malignant neoplasm of right adrenal gland; C79.51 Secondary malignant neoplasm of bone; F17.210 Nicotine dependence, cigarettes, uncomplicated; Z95.828 Presence of other vascular implants and grafts; Z79.891 Long term (current) use of opiate analgesic; Z79.899 Other long term (current) drug therapy
CPT/HCPCS: 77290; 77295; 77300; 77334; 77336; 77412; 77417; 80053; 82533; 82784; 84443; 85025; 86705; 86706; 86709; 86803; 87340; 99024; 99205; 99214

== ENCOUNTER 2023-05-20 08:58 | Oncology outpatient (recurring) (ONCR) | payer MEDICARE, SELFPAY ==
[2023-05-20 09:25] VITALS: BP 122/81; PULSE 82; O2SAT 95
[2023-05-20 09:56] LABS: Basophils # 0.1 10^3/uL (0.0-0.1); Basophils % 0.4 %; Eosinophils % 0.1 %; Hematocrit 47.1 % (42.0-52.0); Lymphocytes # 1.8 10^3/uL (0.8-4.8); Lymphocytes % 12.8 %; Mean Corpuscular Hemoglobin 28.6 pg (28.0-34.0); Mean Corpuscular Volume 84.3 fl (80-94); Mean Platelet Volume 8.7 fL (7.4-10.4); Monocytes # 0.7 10^3/uL (0.2-0.9); Monocytes % 5.4 %; Neutrophils # 11.07 10^3/uL (1.8-7.7); Neutrophils % 80.8 %; Nucleated Red Blood Cells % 0 %; Platelet Count 232 10^3/cmm (130-400); Red Blood Count 5.59 10^6/uL (4.1-5.3); Red Cell Distribution Width 13.4 % (12.1-15.1); White Blood Count 13.7 10^3/uL (4.0-10.0)
[2023-05-20 10:29] LABS: Alanine Aminotransferase 10 U/L (0-41); Albumin Level 3.8 g/dL (3.5-5.2); Alkaline Phosphatase 132 U/L (40-130); Aspartate Amino Transferase 9 U/L (0-40); Blood Urea Nitrogen 11 mg/dL (8-23); Calcium 9.7 mg/dL (8.5-10.5); Carbon Dioxide 29 mmol/L (22-29); Chloride 94 mmol/L (98-107); Globulin 3.4 g/dL (1.3-4.6); Glomerular Filtration Rate 134.4 mL/min (90-130); Glucose 124 mg/dL (65-115); Osmolality Calculated 277 mOsm/kg (285-295); Sodium 133 mmol/L (136-145); Thyroid Stimulating Hormone 0.84 uIU/mL (0.27-4.20); Total Bilirubin 0.3 mg/dL (0.15-1.2); Total Protein 7.2 g/dL (6.6-8.7)
[2023-05-20 10:47] LABS: Immunoglobulin IGG 1144 mg/dL (700-1600)
[2023-05-20 10:53] LABS: Cortisol Random 1.27 ug/dL (2.47-19.5); Hepatitis A Antibody IgM Non-Reactive (Nonreactive); Hepatitis B Core AB, Total Non-Reactive (Nonreactive); Hepatitis B Surface Antigen Non-Reactive (Nonreactive); Hepatitis C Virus Antibody Non-Reactive (Nonreactive)
[2023-05-20 10:59] LABS: Hepatitis B Surface AB < 3.5 (11.5-1000)
[2023-05-20] MEDS: acetaminophen 325 mg Tablet 650 MG PO (12:01)
[2023-05-20] MEDS: OLANZapine 5 mg TABLET PO (12:02)
[2023-05-20] MEDS: sodium chloride 0.9% 250 ML 75 ML IV (12:03)
[2023-05-20] MEDS: diphenhydrAMINE 50 mg/mL SDV 1mL 25 MG IVP (12:03)
[2023-05-20] MEDS: famotidine 20 mg/2 mL INJ IVP (12:06)
[2023-05-20] MEDS: palonosetron 0.25 mg/5 mL SDV IVP (12:15)
[2023-05-20] MEDS: fosaprepitant 150 MG in sodium chloride 0.9% 150 ML 300 MG IV (12:37)
[2023-05-20] MEDS: pembrolizumab 200 MG in sodium chloride 0.9% 250 ML 516 MG IV (13:10)
[2023-05-20] MEDS: pemetrexed disodium 880 MG in sodium chloride 0.9% (100 ml) 100 ML 400 MG IV (13:50)
[2023-05-20] MEDS: cyanocobalamin 1,000 mcg/mL SDV 1000 MCG IM (14:29)
[2023-05-20 15:30] VITALS: BP 134/75; PULSE 79; RESP 18; TEMP 36; O2SAT 97
== END 2023-05-20 23:59 | disposition home or self-care (01) ==
PROVIDERS: Internal Medicine Medical Oncology; PCP Nurse Practitioner; Visit Provider Specialist
DX: C34.12 Malignant neoplasm of upper lobe, left bronchus or lung (principal); Z51.11 Encounter for antineoplastic chemotherapy; Z51.12 Encounter for antineoplastic immunotherapy; C79.51 Secondary malignant neoplasm of bone; Z79.52 Long term (current) use of systemic steroids; Z79.899 Other long term (current) drug therapy
CPT/HCPCS: 80053; 82533; 82784; 84443; 85025; 86705; 86706; 86709; 86803; 87340; 96367; 96372; 96375; 96413; 96417; 99215; J1100; J1200; J1453; J1642; J2469; J3420; J3490; J7040; J7050; J9045; J9271; J9305

== ENCOUNTER 2023-06-10 08:30 | Oncology outpatient (recurring) (ONCR) | payer MEDICARE, SELFPAY ==
[2023-05-31 08:00] VITALS: BP 107/60; PULSE 72; RESP 18; TEMP 36.4; O2SAT 93
[2023-05-31 08:12] LABS: Basophils % 0.9 %; Eosinophils # 0.2 10^3/uL (0.0-0.8); Eosinophils % 3.8 %; Hematocrit 44.6 % (42.0-52.0); Hemoglobin 15.1 g/dL (11.7-16.6); Lymphocytes # 1.8 10^3/uL (0.8-4.8); Lymphocytes % 40.6 %; Mean Corpuscular HGB Conc 33.9 g/dL (30.0-36.0); Mean Corpuscular Hemoglobin 28.1 pg (28.0-34.0); Mean Corpuscular Volume 82.9 fl (80-94); Monocytes # 0.6 10^3/uL (0.2-0.9); Monocytes % 12.6 %; Neutrophils % 41.9 %; Nucleated Red Blood Cells % 0 %; Platelet Count 102 10^3/cmm (130-400); Red Blood Count 5.38 10^6/uL (4.1-5.3); Red Cell Distribution Width 13.2 % (12.1-15.1); White Blood Count 4.5 10^3/uL (4.0-10.0)
[2023-05-31 08:36] LABS: Alanine Aminotransferase 15 U/L (0-41); Albumin Level 3.8 g/dL (3.5-5.2); Alkaline Phosphatase 149 U/L (40-130); Blood Urea Nitrogen 7 mg/dL (8-23); Calcium 9.7 mg/dL (8.5-10.5); Carbon Dioxide 33 mmol/L (22-29); Chloride 93 mmol/L (98-107); Globulin 3.3 g/dL (1.3-4.6); Glomerular Filtration Rate 134.4 mL/min (90-130); Glucose 101 mg/dL (65-115); Osmolality Calculated 274 mOsm/kg (285-295); Sodium 133 mmol/L (136-145); Total Bilirubin 0.4 mg/dL (0.15-1.2); Total Protein 7.1 g/dL (6.6-8.7)
[2023-05-31 08:37] LABS: Aspartate Amino Transferase 14 U/L (0-40)
[2023-06-10 08:30] VITALS: BMI 24.4
[2023-06-10 08:31] VITALS: BP 123/77; PULSE 75; RESP 18; TEMP 36.3; O2SAT 97
[2023-06-10 08:45] LABS: Basophils % 0.5 %; Eosinophils # 0.1 10^3/uL (0.0-0.8); Eosinophils % 0.8 %; Hematocrit 42.7 % (37-53); Lymphocytes # 2.1 10^3/uL (0.8-4.8); Lymphocytes % 24.5 %; Mean Corpuscular Hemoglobin 28.3 pg (27-33); Mean Corpuscular Volume 83.2 fl (82-101); Mean Platelet Volume 8.1 fL (7.4-10.4); Monocytes # 0.7 10^3/uL (0.2-0.9); Monocytes % 8.2 %; Nucleated Red Blood Cells % 0 %; Platelet Count 311 10^3/cmm (157-399); Red Blood Count 5.13 10^6/uL (3.85-5.65); Red Cell Distribution Width 13.6 % (12.1-15.1); White Blood Count 8.62 10^3/uL (3.29-11.43)
[2023-06-10 09:23] LABS: Alanine Aminotransferase 12 U/L (0-41); Albumin Level 4.1 g/dL (3.5-5.2); Alkaline Phosphatase 135 U/L (40-130); Anion Gap 14.5 (5-19); Aspartate Amino Transferase 10 U/L (0-40); Blood Urea Nitrogen 11 mg/dL (8-23); Calcium 9.1 mg/dL (8.5-10.5); Carbon Dioxide 29 mmol/L (22-29); Chloride 93 mmol/L (98-107); Glomerular Filtration Rate 165.9 mL/min (90-130); Glucose 189 mg/dL (65-115); Osmolality Calculated 278 mOsm/kg (285-295); Potassium 4.5 mmol/L (3.5-5.1); Sodium 132 mmol/L (136-145); Thyroid Stimulating Hormone 0.96 uIU/mL (0.27-4.20); Total Bilirubin 0.2 mg/dL (0.15-1.2); Total Protein 7.1 g/dL (6.6-8.7)
[2023-06-10] MEDS: acetaminophen 325 mg Tablet 650 MG PO (11:16)
[2023-06-10] MEDS: sodium chloride 0.9% 250 ML 75 ML IV (11:16)
[2023-06-10] MEDS: OLANZapine 5 mg TABLET PO (11:16)
[2023-06-10] MEDS: diphenhydrAMINE 50 mg/mL SDV 1mL 25 MG IVP (11:17)
[2023-06-10] MEDS: famotidine 20 mg/2 mL INJ IVP (11:18)
[2023-06-10] MEDS: palonosetron 0.25 mg/5 mL SDV IVP (11:21)
[2023-06-10] MEDS: fosaprepitant 150 MG in sodium chloride 0.9% 150 ML 300 MG IV (11:47)
[2023-06-10] MEDS: pembrolizumab 200 MG in sodium chloride 0.9% 250 ML 516 MG IV (12:26)
[2023-06-10] MEDS: CARBOplatin 750 MG in sodium chloride 0.9% 500 ML 575 MG IV (13:39)
[2023-06-10 14:50] VITALS: BP 117/72; PULSE 75; RESP 16; TEMP 36.3; O2SAT 95
== END 2023-06-10 23:59 | disposition home or self-care (01) ==
PROVIDERS: Internal Medicine Medical Oncology; PCP Nurse Practitioner; Visit Provider Radiology Radiation Oncology
DX: C34.12 Malignant neoplasm of upper lobe, left bronchus or lung (principal); C79.51 Secondary malignant neoplasm of bone; Z51.11 Encounter for antineoplastic chemotherapy
CPT/HCPCS: 36415; 80053; 84443; 85025; 96367; 96375; 96413; 96417; 99215; J1100; J1200; J1453; J1642; J2469; J3490; J7040; J7050; J9045; J9271; J9305

== ENCOUNTER 2023-06-30 07:14 | Outpatient (CLI) | payer MEDICARE, SELFPAY ==
--- NOTE | 2023-06-30 07:30 | CT_ITS ---
WS: [id number] CT chest w con* [id number] HISTORY: NSCLC - Assess response to treatment TECHNIQUE: Axial imaging performed through the thorax. Coronal and sagittal reformats are submitted. All CT scans at [facility] use at least one of these dose optimization techniques: automated exposure control; mA and/or kV adjustment per patient size (includes targeted exams where dose is mat ched to clinical indication); or iterative reconstruction. CONTRAST: Omnipaque 350; 100 mL IV. DLP: 781.09 mGy.cm COMPARISON: 02/04/2023 Lungs and central airway: Chronic emphysema. Moderate decrease in size of the LEFT upper lobe lobulat ed mass which abuts the fissure. Mass now measures 13 x 10 mm as compared to 18 x 17 mm on the prior examination in a similar location. No new mass or nodule. Benign granulomata. Pleura: Normal. No pleural effusion. Heart and pericardium: Mild cardiomegaly. Mediastinum and oren: No adenopathy. Vessels: Mild atherosclerosis aorta. Mild pulmonary hypertension. Chest wall and lower neck: Right-sided Port-A-Cath. Upper abdomen: Small hiatal hernia. Prior cholecystectomy. Visualized liver is negative. Mild bilater al adrenal gland thickening. Similar to the prior study. Osseous structures: T7 kyphoplasty is new since the prior study. There are mixed sclerotic and lytic changes of with the vertebral body. Noted to be metastasis on a prior PET/CT of 03/06/2023. IMPRESSION: 1. Moderate decrease in size of the LEFT upper lobe neoplasm now measuring 13 x 10 mm as compared to 18 x 17 mm on the prior exam. 2. No mediastinal or hilar adenopathy. 3. Prior T7 kyphoplasty. Known metastatic bone disease at T7. 4. Mild thickening of the adrenal glands. Treated RIGHT adrenal metastasis.
[2023-06-30] MEDS: iohexol 350 mg/mL 500 mL Btl (per mL) IV (07:54)
== END 2023-06-30 07:15 | disposition home or self-care (01) ==
PROVIDERS: PCP Nurse Practitioner; Visit Provider Internal Medicine Medical Oncology
DX: C34.12 Malignant neoplasm of upper lobe, left bronchus or lung (principal); C79.51 Secondary malignant neoplasm of bone; T45.1X5A Adverse effect of antineoplastic and immunosuppressive drugs, initial encounter; R11.2 Nausea with vomiting, unspecified; T50.905A Adverse effect of unspecified drugs, medicaments and biological substances, initial encounter; Z92.3 Personal history of irradiation; Z79.899 Other long term (current) drug therapy
CPT/HCPCS: 71260; Q9967

== ENCOUNTER 2023-07-01 08:51 | Oncology outpatient (recurring) (ONCR) | payer MEDICARE, SELFPAY ==
[2023-07-01 09:50] VITALS: BP 137/79; PULSE 75; RESP 16; TEMP 36.3; O2SAT 96
[2023-07-01 09:58] LABS: Basophils # 0.1 10^3/uL (0.0-0.1); Basophils % 0.7 %; Eosinophils % 0.3 %; Hematocrit 39.9 % (37-53); Lymphocytes # 1.7 10^3/uL (0.8-4.8); Lymphocytes % 24.8 %; Mean Corpuscular HGB Conc 34.1 g/dL (30-55); Mean Corpuscular Hemoglobin 28.2 pg (27-33); Mean Corpuscular Volume 82.6 fl (82-101); Mean Platelet Volume 8.2 fL (7.4-10.4); Monocytes # 0.6 10^3/uL (0.2-0.9); Monocytes % 9.2 %; Neutrophils # 4.23 10^3/uL (1.8-7.7); Neutrophils % 62.8 %; Nucleated Red Blood Cells % 0 %; Platelet Count 262 10^3/cmm (157-399); Red Blood Count 4.83 10^6/uL (3.85-5.65); Red Cell Distribution Width 14.6 % (12.1-15.1); White Blood Count 6.74 10^3/uL (3.29-11.43)
[2023-07-01 10:29] LABS: Alanine Aminotransferase 13 U/L (0-41); Albumin Level 4.2 g/dL (3.5-5.2); Alkaline Phosphatase 139 U/L (40-130); Anion Gap 14.7 (5-19); Aspartate Amino Transferase 12 U/L (0-40); Blood Urea Nitrogen 7 mg/dL (8-23); Calcium 9.8 mg/dL (8.5-10.5); Carbon Dioxide 28 mmol/L (22-29); Chloride 96 mmol/L (98-107); Globulin 3.1 g/dL (1.3-4.6); Glomerular Filtration Rate 165.9 mL/min (90-130); Glucose 131 mg/dL (65-115); Osmolality Calculated 278 mOsm/kg (285-295); Potassium 4.7 mmol/L (3.5-5.1); Sodium 134 mmol/L (136-145); Total Bilirubin 0.2 mg/dL (0.15-1.2); Total Protein 7.3 g/dL (6.6-8.7)
[2023-07-01] MEDS: sodium chloride 0.9% 250 ML 100 ML IV (11:53)
[2023-07-01] MEDS: OLANZapine 5 mg TABLET PO (11:54)
[2023-07-01] MEDS: acetaminophen 325 mg Tablet 650 MG PO (11:54)
[2023-07-01] MEDS: palonosetron 0.25 mg/5 mL SDV IVP (11:54)
[2023-07-01] MEDS: diphenhydrAMINE 50 mg/mL SDV 1mL 25 MG IVP (11:56)
[2023-07-01] MEDS: famotidine 20 mg/2 mL INJ IVP (11:59)
[2023-07-01] MEDS: fosaprepitant 150 MG in sodium chloride 0.9% 150 ML 300 MG IV (12:03)
[2023-07-01] MEDS: pembrolizumab 200 MG in sodium chloride 0.9% 250 ML 516 MG IV (13:10)
[2023-07-01] MEDS: [UNRECOGNIZED DRUG - OTHER] IV (13:58)
[2023-07-01] MEDS: PEMETREXED DISODIUM IV (13:58)
[2023-07-01] MEDS: CARBOplatin 750 MG in sodium chloride 0.9% 500 ML 575 MG IV (14:23)
[2023-07-01 16:52] VITALS: BP 127/74; PULSE 73; TEMP 36.5; O2SAT 97
== END 2023-07-01 23:59 | disposition home or self-care (01) ==
PROVIDERS: Internal Medicine Medical Oncology; PCP Nurse Practitioner; Visit Provider Internal Medicine Medical Oncology
DX: C34.12 Malignant neoplasm of upper lobe, left bronchus or lung (principal); Z79.899 Other long term (current) drug therapy; Z76.89 Persons encountering health services in other specified circumstances
CPT/HCPCS: 80053; 85025; 96367; 96375; 96413; 96417; 99214; J1100; J1200; J1453; J1642; J2469; J3490; J7040; J7050; J9045; J9271; J9305

== ENCOUNTER 2023-07-21 18:39 | Emergency (ER) | payer MEDICARE, SELFPAY ==
[2023-07-21 18:42] VITALS: BP 166/72; PULSE 91; RESP 17; TEMP 36.4; BMI 24.4
--- NOTE | 2023-07-21 19:09 | CTR_ITS ---
PROCEDURE INFORMATION: Exam: CT Thoracic Spine Without Contrast Exam date and time: 07/21/2023 7:17 PM Age: 68 years old Clinical indication: Pain in thoracic spine; Prior surgery; Surgery date: 6+ months; Surgery type: Kyphoplasty; Additional info: Pain, lifting- sudden pain, HX of kyphoplasty and mets from lung TECHNIQUE: Imaging protocol: Computed tomography of the thoracic spine without contrast. Radiation optimization: All CT scans at this facility use at least one of these dose optimization techniques: automated exposure control; mA and/or kV adjustment per patient size (includes targeted exams where dose is matched to clinical indication); or iterative reconstruction. REPORTING DATA: Count of CT and Cardiac NM exams in prior 12 months: This patient has received 4 known CTs and 0 known cardiac nuclear medicine studies in the 12 months prior to the current study. COMPARISON: 1. MR thoracic spine wo/w [id number] 04/15/2023 9:[address] chest abdpel w/*[id number] 02/04/2023 3:29 PM RADIATION DOSE METRICS: Total DLP (mGy-cm): 662 FINDINGS: Tubes, catheters and devices: Right-sided venous catheter. Bones/joints: T7 compression fracture status post vertebroplasty with underlying sclerosis of the vertebrae is similar to the comparison MRI. Epidural disease seen on MRI not appreciated by CT. The thoracic kyphosis is again exaggerated. The bones appear demineralized. There are mild multilevel degenerative changes. No acute displaced thoracic spinal fracture seen. Soft tissues: Unremarkable. Lymph nodes: Calcified mediastinal and hilar lymph nodes consistent with old granulomatous disease. Lungs: There are partially imaged nodular opacities in the posterolateral left upper lobe which are smaller than the comparison CT largest abutting the fissure measures 1.3 cm. There are partly seen tree-in-bud nodules in the medial right lower lung. Coronary arteries: Coronary artery atherosclerosis. Liver: Liver and splenic granuloma. Adrenal glands: Unchanged right adrenal mass. Kidneys and ureters: Unchanged 9 mm hyperdense lesion upper pole left kidney most likely protein/debris containing cyst. CT/CT thoracic spin wo con* [id number] IMPRESSION: 1. No acute thoracic spinal fracture seen. Stable old T7 compression fracture status post vertebroplasty. 2. Partially visualized left upper lobe nodules appear smaller than CT comparison 02/04/2023 which may be related to treatment. There are tree-in-bud nodular opacities in the medial right lung suspicious for aspiration pneumonia. These can be further evaluated with a dedicated chest CT for follow-up.
--- NOTE | 2023-07-21 19:09 | CTR_ITS ---
PROCEDURE INFORMATION: Exam: CT Lumbar Spine Without Contrast Exam date and time: 07/21/2023 7:17 PM Age: 68 years old Clinical indication: Low back pain; Additional info: Pain, lifting- sudden pain, HX of fracture and vertebral mets from TECHNIQUE: Imaging protocol: Computed tomography of the lumbar spine without contrast. Radiation optimization: All CT scans at this facility use at least one of these dose optimization techniques: automated exposure control; mA and/or kV adjustment per patient size (includes targeted exams where dose is matched to clinical indication); or iterative reconstruction. REPORTING DATA: Count of CT and Cardiac NM exams in prior 12 months: This patient has received 4 known CTs and 0 known cardiac nuclear medicine studies in the 12 months prior to the current study. COMPARISON: MR lumbar spine wo/w con [id number] 04/15/2023 9:23 AM RADIATION DOSE METRICS: Total DLP (mGy-cm): 661 FINDINGS: Bones/joints: There is subtle anterior/inferior loss of height of the L1 vertebrae which is new since the comparison MRI. There is progressive appearing loss of height of the right aspect of the L5 vertebra since the comparison MRI now 50% with fracture line visible by CT. No significant bony retropulsion is seen. Known L5 epidural disease not well evaluated by CT. Kidneys and ureters: Nonobstructing right nephroliths. Vasculature: Atherosclerosis. Soft tissues: Unremarkable. CT/CT lumbar spine wo con* [id number] IMPRESSION: Subtle anterior/inferior endplate compression deformity of L1 which appears acute. There is also progressive compression deformity of the right aspect of the L5 vertebrae with underlying sclerosis on CT, likely pathologic at site of lesion on prior MRI. These findings can be further evaluated by follow-up MRI imaging.
--- NOTE | 2023-07-21 19:11 | W.ED.BACK ---
HPI - Back Pain/Injury General: Chief Complaint: Back Pain/Injury Stated Complaint: Back Injury Time Seen by Provider: 07/21/23 18:51 Source: patient Mode of arrival: ambulatory Limitations: no limitations History of Present Illness: Patient presents to the emergency department today for evaluation and treatment of mid and low back pain. Patient reports that he was trying to help his sister up off the floor as she had fallen and, states as he was lifting her, had sudden onset mid to low back pain and heard a pop . Patient has a significant past medical history of cancer. Patient has been treated for lung cancer and incidentally has incurred vertebral mets. Patient had a kyphoplasty in the thoracic region but apparently has also had some lumbar involvement as well. Patient has not noticed any difficulty with his bowel or bladder control. Patient is independently ambulatory and weightbearing without any noticeable change in sensation distally. He does indicate he is concerned given the history with his back that he may have caused further vertebral injury. Patient took an oxycodone-his chronic pain medication, approximately 1 hour prior to arrival and notes it does seem to be helping with his pain. Review of Systems General: Reports: 10 or more systems reviewed and unremarkable except in HPI and below PFSH ED PFSH: Medical History COPD (chronic obstructive pulmonary disease) with emphysema Coronary artery disease Diabetes mellitus with hyperglycemia, without long-term current use of insulin Hypertension Personal history of nicotine dependence Surgical History History of appendectomy History of cholecystectomy History of coronary artery stent placement History of kyphoplasty (04/09/23) T7 kyphoplasty with biopsy of the T7 vertebral body and with radiofrequency ablation of T7 tumor Port-A-Cath in place Right chest wall 05/18/23 Family History Other CAD (coronary artery disease) Cancer Hyperlipidemia Hypertension Denies family history of Bleeding disorder Social History Smoking and tobacco status: heavy tobacco smoker cigarettes Packs smoked per day: 2 [ Other cigarette details: smoked x 50+ years] Second hand smoke exposure: Yes Smoking risk assessment/counseling performed?: No Alcohol intake: current Alcohol intake frequency: holidays/special occasions only Desire information about alcohol rehabilitation?: No Counseling given: No Substance/Drug Use: unknown Desire information about substance/drug rehabilitation?: No Counseling given: No Adopted: No Caregiver/support person: No Lives independently: Yes Household members: none Housing: House Marital status: Number of children: 1 Number of grandchildren: 3 service: No Current occupational status: retired Do you think of yourself as: Straight/Heterosexual Current gender identity: Male Physical Exam Const: COMMON NORMALS: no acute distress, patient oriented x3 and alert OTHER: Patient is quite pleasant and social. He answers his own history. Vital signs are stable. HENMT: COMMON NORMALS: normocephalic, atraumatic and hearing grossly normal bilaterally HEAD & SCALP: normocephalic and atraumatic Eye: COMMON NORMALS: Equal, round and reactive pupils present, EOMs intact bilaterally and conjunctivae normal CONJUNCTIVA: Yes conjunctivae normal PUPIL: Yes Equal, round and reactive pupils present Neck/C-Spine: COMMON NORMALS: full ROM and no JVD Lymph: LYMPHATIC: no lymphadenopathy noted Resp: COMMON NORMALS: normal respiratory effort, No retractions and No use of accessory muscles Cardio: COMMON NORMALS: no JVD and regular rate RATE: regular rate Back/Pelvis: OTHER: On arrival to the room, patient is reclined in the bed. Offered assistance to help him sit up but, patient was able to independently sit up without signs of distress and, was able to sit upright at the side of the bed without difficulty. He is tender along the inferior thoracic and proximal lumbar vertebral column region without noticeable increase in pain on palpation in the paravertebral musculature in this area. Extremity: NARRATIVE EXTREMITY EXAM: Patient demonstrates full range of motion to the extremities-especially lower extremities. He is ambulatory and weightbearing. Neuro: COMMON NORMALS: patient oriented x3 SENSORIUM/ORIENTATION: Yes alert Psych: COMMON NORMALS: mental status grossly normal, Normal thought process present, cooperative and normal affect THOUGHT PROCESS: Normal thought process present Skin: COMMON NORMALS: no rashes or lesions noted and turgor normal GENERAL SKIN EXAM: no rashes or lesions noted and turgor normal Course Vital Signs: Vital signs: Vital Signs Temperature 97.6 F 07/21/23 18:42 Pulse Rate 91 07/21/23 18:42 Respiratory Rate 17 07/21/23 18:42 Blood Pressure 166/72 07/21/23 18:42 Oxygen Delivery Me thod Room Air 07/21/23 18:42 MDM - Back Pain/Injury Medical Decision Making X-ray shows no acute changes in the thoracic region but there is concerns for both an anterior/inferior endplate compression fracture of L1 which is new. It does correlate with the area of discomfort that the patient has. Patient states he can call his oncologist and still is considered an active patient with Dr. Cerda. Encouraged him to call first thing in the morning to make a follow-up appointment. Discussed using TLSO brace at this time. Home health delivered TLSO brace and applied it to patient at bedside. Patient can continue taking his chronic pain medication. Case management referral to notify Dr. Cerda's office requested regarding patient follow-up. Patient was given strict return precautions for bowel or bladder dysfunction, tingling, numbness, or weakness in the lower extremities. Patient verbalizes understanding and agreement to treatment plan. Differential Diagnosis Likely strain of lumbar region and thoracic back pain; Unlikely lumbar radiculopathy, sciatica or pyelonephritis Labs Radiology Impressions Lumbar Spine CT 07/21/23 19:09 IMPRESSION: Subtle anterior/inferior endplate compression deformity of L1 which appears acute. There is also progressive compression deformity of the right aspect of the L5 vertebrae with underlying sclerosis on CT, likely pathologic at site of lesion on prior MRI. These findings can be further evaluated by follow-up MRI imaging. Thoracic Spine CT 07/21/23 19:09 IMPRESSION: 1. No acute thoracic spinal fracture seen. Stable old T7 compression fracture status post vertebroplasty. 2. Partially visualized left upper lobe nodules appear smaller than CT comparison 02/04/2023 which may be related to treatment. There are tree-in-bud nodular opacities in the medial right lung suspicious for aspiration pneumonia. These can be further evaluated with a dedicated chest CT for follow-up. All radiology interpretation(s) finalized by discharge Discharge Plan Discharge Patient Disposition: Home Clinical Impression: Closed compression fracture of body of L1 vertebra Condition: Stable Prescriptions: No Action atorvastatin [Lipitor] 40 mg tablet 40 mg PO DAILY albuterol sulfate [ProAir HFA] 90 mcg/actuation HFA aerosol inhaler 2 puff INHALATION Q6H PRN (Reason: shortness of breath or wheezing) Qty: 18 2RF aspirin 81 mg tablet,delayed release (DR/EC) 81 mg PO BID (DME) nebulizers Misc See Rx Instructions .ROUTE .MEDSUPPLY Qty: 1 0RF Rx Instructions: As directed (DME) Disposable nebulizer circuit See Rx Instructions .ROUTE .MEDSUPPLY Qty: 1 2RF Rx Instructions: As directed (DME) blood-glucose meter [OneTouch Ultra2 Meter] Kit See Rx Instructions .Route Qty: 1 0RF Rx Instructions: As directed (DME) OneTouch Ultra Test Strip See Rx Instructions .Route Qty: 50 0RF Rx Instructions: one daily (DME) lancets [OneTouch UltraSoft Lancets] [facility] See Rx Instructions .Route Qty: 100 2RF Rx Instructions: one day metoprolol tartrate 100 mg tablet 25 mg PO BID lisinopril-hydrochlorothiazide 10-12.5 mg tablet 1 tab PO DAILY oxycodone 20 mg tablet 20 mg PO QID PRN (Reason: pain) 30 Days Qty: 120 0RF ondansetron 8 mg tablet,disintegrating 8 mg PO QID PRN (Reason: nausea and vomiting) Qty: 30 2RF lidocaine-prilocaine 2.5-2.5 % cream 1 applic topical DIRECTED Qty: 30 3RF Rx Instructions: place quarter sized amount 30 min prior to port access, cover with plastic wrap folic acid 1 mg tablet 1 mg PO DAILY Qty: 30 5RF Rx Instructions: Start 7 days prior to treatment and continuing for 21 days after the last pemetrexed dose. lidocaine HCl 2 % solution 5 ml PO QID PRN (Reason: pain) Qty: 80 3RF Rx Instructions: add [id number], [id number] for magic mouthwash, swish and swallow dexamethasone 4 mg tablet 4 mg PO DIRECTED Qty: 24 2RF Rx Instructions: Take 4mg by mouth twice daily x 3 days. Start the day prior to Alimta treatment. lorazepam 1 mg tablet 0.5 - 1 mg PO Q6H PRN (Reason: Severe Nausea) Qty: 30 3RF Discharge Orders: Discharge ED (Routine); Ordered 07/21/23 Ordered By: Sakshi Aragon Referrals: Viv Mcgarry, [employer] [Primary Care Provider] - Discharge Diet: Usual diet Discharge Activity: Limit activity as instructed Patient Instructions: Vertebral Compression Fracture (ED) Activity Restrictions/Additional Instructions: Imaging today does confirm a new injury to your L1 vertebrae. You have an anterior/inferior corner compression fracture of this vertebral body. We recommend you reach out to your doctor first thing in the morning to discuss a follow-up as you may require further intervention and certainly follow-up with Dr. Cerda. Continue to take your prescription pain medication. We recommend wearing your TLSO brace at all times-at least until you are seen and evaluated by your doctor. If you develop any bowel or bladder dysfunction or, develop tingling, weakness or numbness in your lower extremities preventing you being able to stand or walk you need to return back to the emergency department immediately. Coding Level of Care Code ED [employer] Signal Technician for Britany Gonzalez
--- NOTE | 2023-07-22 11:15 | PC.SOCIAL ---
Ortho Referral Referral to Ortho at this time. Clinic to contact patient with appt date/time.
== END 2023-07-21 22:24 | disposition home or self-care (01) ==
PROVIDERS: Emergency Provider Physician Assistant; PCP Nurse Practitioner
DX: S32.010A Wedge compression fracture of first lumbar vertebra, initial encounter for closed fracture (principal); F17.210 Nicotine dependence, cigarettes, uncomplicated; Z79.82 Long term (current) use of aspirin; J44.9 Chronic obstructive pulmonary disease, unspecified; I25.10 Atherosclerotic heart disease of native coronary artery without angina pectoris; E11.9 Type 2 diabetes mellitus without complications; I10 Essential (primary) hypertension; X50.0XXA Overexertion from strenuous movement or load, initial encounter
CPT/HCPCS: 72128; 72131; 99284

== ENCOUNTER 2023-07-22 08:30 | Oncology outpatient (recurring) (ONCR) | payer MEDICARE, SELFPAY ==
[2023-07-22 09:35] VITALS: BP 100/65; PULSE 80; RESP 16; TEMP 36.3; O2SAT 90
[2023-07-22 10:02] LABS: Basophils % 0.5 %; Eosinophils % 0.2 %; Lymphocytes # 1.4 10^3/uL (0.8-4.8); Lymphocytes % 17.3 %; Mean Corpuscular HGB Conc 34.3 g/dL (30-55); Mean Corpuscular Hemoglobin 28.2 pg (27-33); Mean Corpuscular Volume 82.4 fl (82-101); Mean Platelet Volume 8.4 fL (7.4-10.4); Monocytes # 0.6 10^3/uL (0.2-0.9); Monocytes % 7.3 %; Neutrophils % 73.1 %; Nucleated Red Blood Cells % 0.2 %; Platelet Count 294 10^3/cmm (157-399); Red Blood Count 4.25 10^6/uL (3.85-5.65); Red Cell Distribution Width 16.4 % (12.1-15.1); White Blood Count 8.34 10^3/uL (3.29-11.43)
[2023-07-22 10:29] LABS: Alanine Aminotransferase 14 U/L (0-41); Albumin Level 4.1 g/dL (3.5-5.2); Alkaline Phosphatase 159 U/L (40-130); Anion Gap 15.8 (5-19); Aspartate Amino Transferase 15 U/L (0-40); Blood Urea Nitrogen 10 mg/dL (8-23); Calcium 9.7 mg/dL (8.5-10.5); Carbon Dioxide 28 mmol/L (22-29); Chloride 92 mmol/L (98-107); Globulin 3.4 g/dL (1.3-4.6); Glomerular Filtration Rate 112.5 mL/min (90-130); Glucose 186 mg/dL (65-115); Osmolality Calculated 276 mOsm/kg (285-295); Potassium 4.8 mmol/L (3.5-5.1); Sodium 131 mmol/L (136-145); Thyroid Stimulating Hormone 1.31 uIU/mL (0.27-4.20); Total Bilirubin 0.3 mg/dL (0.15-1.2); Total Protein 7.5 g/dL (6.6-8.7)
[2023-07-22] MEDS: sodium chloride 0.9% 250 ML 75 ML IV (11:51)
[2023-07-22] MEDS: OLANZapine 5 mg TABLET PO (11:52)
[2023-07-22] MEDS: acetaminophen 325 mg Tablet 650 MG PO (11:52)
[2023-07-22] MEDS: palonosetron 0.25 mg/5 mL SDV IVP (11:54)
[2023-07-22] MEDS: famotidine 20 mg/2 mL INJ IVP (11:57)
[2023-07-22] MEDS: diphenhydrAMINE 50 mg/mL SDV 1mL 25 MG IVP (12:00)
[2023-07-22] MEDS: fosaprepitant 150 MG in sodium chloride 0.9% 150 ML 300 MG IV (12:03)
[2023-07-22] MEDS: pembrolizumab 200 MG in sodium chloride 0.9% 250 ML 516 MG IV (12:59)
[2023-07-22] MEDS: PEMETREXED DISODIUM IV (14:12)
[2023-07-22] MEDS: SODIUM CHLORIDE 0.9% IV (14:12)
[2023-07-22 16:00] VITALS: BP 111/57; PULSE 84; RESP 16; TEMP 36.4; O2SAT 96
== END 2023-07-22 23:59 | disposition home or self-care (01) ==
PROVIDERS: PCP Nurse Practitioner; Visit Provider Internal Medicine Medical Oncology
DX: C34.12 Malignant neoplasm of upper lobe, left bronchus or lung (principal); Z79.899 Other long term (current) drug therapy; Z51.11 Encounter for antineoplastic chemotherapy; C79.51 Secondary malignant neoplasm of bone; R11.2 Nausea with vomiting, unspecified; T45.1X5A Adverse effect of antineoplastic and immunosuppressive drugs, initial encounter; T50.905A Adverse effect of unspecified drugs, medicaments and biological substances, initial encounter; R53.83 Other fatigue
CPT/HCPCS: 80053; 84443; 85025; 96367; 96375; 96411; 96413; 96417; 99214; J1100; J1200; J1453; J1642; J2469; J3490; J7040; J7050; J9045; J9271; J9305

== ENCOUNTER → 2023-07-27 15:51 | Outpatient (BNVA) | payer MEDICARE, SELFPAY | PROVIDERS: PCP Nurse Practitioner; Referring Provider Physician Assistant; Visit Provider Physician Assistant | DX: S32.010A Wedge compression fracture of first lumbar vertebra, initial encounter for closed fracture (principal); S32.050A Wedge compression fracture of fifth lumbar vertebra, initial encounter for closed fracture; X58.XXXA Exposure to other specified factors, initial encounter; M81.0 Age-related osteoporosis without current pathological fracture; Z46.89 Encounter for fitting and adjustment of other specified devices; S32.010D Wedge compression fracture of first lumbar vertebra, subsequent encounter for fracture with routine healing; X58.XXXD Exposure to other specified factors, subsequent encounter | CPT/HCPCS: 72100; 97760; 99214; L0637 ==

== ENCOUNTER 2023-07-27 16:36 | Outpatient (CLI) | payer MEDICARE, SELFPAY | END 2023-07-27 16:37 | disposition home or self-care (01) | LOC: SPT 16:36 | PROVIDERS: PCP Nurse Practitioner; Visit Provider Physician Assistant | DX: Z46.89 Encounter for fitting and adjustment of other specified devices (principal); S32.010D Wedge compression fracture of first lumbar vertebra, subsequent encounter for fracture with routine healing; X58.XXXD Exposure to other specified factors, subsequent encounter | CPT/HCPCS: 97760; 99214; L0637 ==

== ENCOUNTER 2023-08-03 16:18 | Outpatient (CLI) | payer MEDICARE, SELFPAY ==
--- NOTE | 2023-08-03 14:00 | PETR_ITS ---
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 LABS AND CLINICAL REPORTS: Glucose: 138 mg/dl Treatment strategy for malignancy (PET staging): Restaging (PS) TECHNIQUE: Imaging protocol: Following at least four-hour fasting and following the injection of radiopharmaceutical, low dose CT images were obtained. Then, PET images were obtained. Attenuation corrected images were constructed using the CT scan. Fused images of PET and CT were reviewed. The standardized uptake values (SUV) reported below are maximum values within a region of interest, expressed in gm/ml. Exam includes orbital meatal line to mid-thigh. Radiopharmaceutical: 13.56 mCi F-18 FDG (Fluorodeoxyglucose), IV. Time of imaging post radiopharmaceutical administration: 1 hour Injection site: site COMPARISON: 1. PT PET skulltothigh INITIAL [id number] 03/06/2023 10:[address] lumbar spine wo con* [id number] 07/21/2023 7:[address] thoracic spin wo con* [id number] 07/21/2023 7:[address] chest w con* [id number] 06/30/2023 7:36 AM FINDINGS: Tubes, catheters and devices: Right chest MediPort is unchanged. Brain: Visualized brain has normal physiologic uptake. Pharynx: No abnormal uptake. Larynx: No abnormal uptake. Lungs, pleura and trachea: Left upper lobe semi-solid nodular density measures 1.3 x 1.0 cm similar to the chest CT from 06/30/2023. On PET there is low-grade uptake with SUV maximum of 1.2 which is. Scarring laterally in the left upper lobe is unchanged. Scattered calcified granulomas are unchanged. No new nodule. Heart: Normal physiologic uptake. Coronary arteries: Stable coronary artery atherosclerosis. Mediastinal space: No abnormal uptake. Liver: No abnormal uptake. Gallbladder and bile ducts: Cholecystectomy changes are stable. Pancreas: No abnormal uptake. Spleen: Splenic granuloma. Adrenal glands: Right adrenal gland is mildly thickened on CT with out abnormal uptake, SUV maximum of 1.8 previously 10.2 consistent with treatment. Kidneys and ureters: There are nonobstructing small renal stones present. Left renal cysts are unchanged. Stomach and bowel: No abnormal uptake. Reproductive: Enlarged prostate is unchanged. Vasculature: Stable atherosclerosis. Lymph nodes: Calcified mediastinal and hilar nodes are unchanged. Bones/joints: T7 vertebroplasty changes again present. Sclerosis L5 vertebrae with mild central loss of height on the right side is unchanged with the comparison CT. Low-grade uptake is seen with SUV maximum of 2.6 previously 8.6. Soft tissues: No abnormal uptake in the visualized head, neck, chest, abdomen, pelvis, and extremities. Other findings: Mild uptake is seen in the hilum measuring SUV max 2.9. Previous SUV max was 8 on the left, which is decreased. There is no CT correlate present. PET/PET skulltothi SUBSEQ [id number] IMPRESSION: 1. Left upper lobe mass is unchanged with comparison CT chest with resolution of uptake on PET consistent with treatment effect. There is low-grade uptake bilaterally in the oren without CT correlate which may be reactive. Recommend attention on follow-up. 2. Right adrenal metastasis has resolved. 3. There is mild residual uptake in the L5 vertebrae at site of compression deformity decreased PET which is since previous consistent with treatment effect.
== END 2023-08-03 16:19 | disposition home or self-care (01) ==
LOC: RAD 16:18
PROVIDERS: PCP Nurse Practitioner; Visit Provider Nurse Practitioner Family
DX: C34.12 Malignant neoplasm of upper lobe, left bronchus or lung (principal); C79.51 Secondary malignant neoplasm of bone; Z95.5 Presence of coronary angioplasty implant and graft
CPT/HCPCS: 78815; 99214; A9552

== ENCOUNTER 2023-08-06 13:22 | Outpatient (CLI) | payer MEDICARE, SELFPAY ==
--- NOTE | 2023-08-06 13:45 | MR_ITS ---
WS: [id number] MRI LUMBAR SPINE WITH AND WITHOUT CONTRAST HISTORY: L1 compression Fracture COMPARISON: PET/CT 08/03/2023 TECHNIQUE: Sagittal and axial multisequence imaging is submitted. Postcontrast, MultiHance 15 mL. Increase in cervical lordosis and thoracic kyphosis. Patient has a known T7 vertebroplasty and compre ssion deformity. Posterior lumbar alignment is normal. Patient has a known L5 metastatic lesion which has been treated. Recent PET/CT demonstrated improving metastatic site. There is mild anterior wedging of L1. Along the superior endplate of L1 there is low T1 signal. There is also slight decreased signal on the T2 sequences. There is only mild edema. Conus terminates normally at L1-2 disc level. L1-L2: No retropulsion or significant stenosis. L2-L3: Normal. L3-L4: Annular disc bulging, osteophytic ridging and mild facet arthritis. L4-L5: Diffuse annular disc bulging with ligamentum flavum and facet arthritis. L5-S1: Expansile bone lesion RIGHT lateral L5 vertebral body extending into the foramen. Moderate octavio ateral facet arthritis. There is soft tissue encroachment upon the RIGHT L5 exiting nerve root. The s oft tissue expansion and foraminal encroachment has progressed since 04/15/2023. There is continued enhancement in the RIGHT lateral L5 vertebral body and posterior element from the known metastatic lesion. Linear area of increased enhancement along the inferior endplate of L1. Ther e is mild anterior wedging and this is thought to be a compression fracture which is new since 023. Fracture was noted on the CT of 07/21/2023. IMPRESSION: 1. Mild anterior wedging of L1. Fracture is noted along the inferior endplate of L1 as identified on the CT of 07/21/2023. There is enhancement within the fracture site. Would expect the fracture to enha nce in the acute phase. This can be followed up and 6 to 8 weeks by MRI with contrast for improvement if clinically thought necessary. Less likely an additional metastatic site. 2. Known osseous metastatic site in the RIGHT lateral L5 vertebral body with mild encroachment into t he foramen. On the recent PET/CT this was noted to be improving in uptake consistent with treatment e ffect.
== END 2023-08-06 13:23 | disposition home or self-care (01) ==
PROVIDERS: PCP Nurse Practitioner; Visit Provider Physician Assistant
DX: S32.010A Wedge compression fracture of first lumbar vertebra, initial encounter for closed fracture (principal); X58.XXXA Exposure to other specified factors, initial encounter; C79.51 Secondary malignant neoplasm of bone
CPT/HCPCS: 72158; A9577

== ENCOUNTER 2023-08-16 10:30 | Oncology outpatient (recurring) (ONCR) | payer MEDICARE, SELFPAY ==
[2023-08-12 09:32] VITALS: BP 93/58; PULSE 100; RESP 18; TEMP 36.7; O2SAT 94
[2023-08-12 09:48] LABS: Basophils # 0.1 10^3/uL (0.0-0.1); Basophils % 0.9 %; Eosinophils # 0.2 10^3/uL (0.0-0.8); Eosinophils % 4.3 %; Hematocrit 31.1 % (37-53); Lymphocytes # 2.2 10^3/uL (0.8-4.8); Mean Corpuscular HGB Conc 34.1 g/dL (30-55); Mean Corpuscular Hemoglobin 29.4 pg (27-33); Mean Corpuscular Volume 86.4 fl (82-101); Mean Platelet Volume 8.2 fL (7.4-10.4); Monocytes # 1.1 10^3/uL (0.2-0.9); Monocytes % 19.8 %; Neutrophils # 1.73 10^3/uL (1.8-7.7); Neutrophils % 32.9 %; Nucleated Red Blood Cells % 0.4 %; Platelet Count 151 10^3/cmm (157-399); Red Cell Distribution Width 20.6 % (12.1-15.1); White Blood Count 5.29 10^3/uL (3.29-11.43)
[2023-08-12 10:22] LABS: Alanine Aminotransferase 16 U/L (0-41); Albumin Level 3.9 g/dL (3.5-5.2); Alkaline Phosphatase 144 U/L (40-130); Anion Gap 12.9 (5-19); Aspartate Amino Transferase 15 U/L (0-40); Blood Urea Nitrogen 10 mg/dL (8-23); Calcium 9.3 mg/dL (8.5-10.5); Carbon Dioxide 30 mmol/L (22-29); Chloride 96 mmol/L (98-107); Globulin 2.9 g/dL (1.3-4.6); Glomerular Filtration Rate 134.4 mL/min (90-130); Glucose 90 mg/dL (65-115); Osmolality Calculated 279 mOsm/kg (285-295); Potassium 3.9 mmol/L (3.5-5.1); Sodium 135 mmol/L (136-145); Thyroid Stimulating Hormone 1.95 uIU/mL (0.27-4.20); Total Bilirubin 0.3 mg/dL (0.15-1.2); Total Protein 6.8 g/dL (6.6-8.7)
[2023-08-12 11:40] VITALS: BP 99/68; PULSE 85; RESP 18; TEMP 36.4; O2SAT 98
[2023-08-16 10:30] VITALS: BP 96/61; PULSE 83; RESP 16; TEMP 36.1; O2SAT 94; BMI 24.8
[2023-08-16] MEDS: pembrolizumab 400 MG in sodium chloride 0.9% 250 ML 532 MG IV (11:35)
[2023-08-16] MEDS: sodium chloride 0.9% 250 ML 75 ML IV (11:42)
[2023-08-16 12:35] VITALS: BP 104/66; PULSE 79; RESP 16; TEMP 36.4; O2SAT 95
== END 2023-08-16 23:59 | disposition home or self-care (01) ==
PROVIDERS: Nurse Practitioner Family; PCP Nurse Practitioner; Visit Provider Internal Medicine Medical Oncology
DX: C34.12 Malignant neoplasm of upper lobe, left bronchus or lung (principal); Z51.12 Encounter for antineoplastic immunotherapy
CPT/HCPCS: 80053; 84443; 85025; 96413; 99214; J1642; J7050; J9271

== ENCOUNTER 2023-10-04 09:19 | Oncology outpatient (recurring) (ONCR) | payer MEDICARE, SELFPAY ==
[2023-10-04 09:37] VITALS: BP 106/62; PULSE 68; RESP 16; TEMP 36.2; O2SAT 97
[2023-10-04 09:50] LABS: Basophils # 0.1 10^3/uL (0.0-0.1); Eosinophils # 0.3 10^3/uL (0.0-0.8); Eosinophils % 4.1 %; Hematocrit 40.1 % (37-53); Lymphocytes # 2.4 10^3/uL (0.8-4.8); Lymphocytes % 33.2 %; Mean Corpuscular HGB Conc 34.2 g/dL (30-55); Mean Corpuscular Hemoglobin 31.4 pg (27-33); Mean Corpuscular Volume 91.8 fl (82-101); Mean Platelet Volume 8.5 fL (7.4-10.4); Monocytes # 0.5 10^3/uL (0.2-0.9); Monocytes % 7.4 %; Neutrophils # 3.94 10^3/uL (1.8-7.7); Nucleated Red Blood Cells % 0 %; Platelet Count 170 10^3/cmm (157-399); Red Blood Count 4.37 10^6/uL (3.85-5.65); Red Cell Distribution Width 14.1 % (12.1-15.1); White Blood Count 7.29 10^3/uL (3.29-11.43)
[2023-10-04 10:56] LABS: Alanine Aminotransferase 11 U/L (0-41); Albumin Level 4.2 g/dL (3.5-5.2); Alkaline Phosphatase 135 U/L (40-130); Anion Gap 11.9 (5-19); Aspartate Amino Transferase 12 U/L (0-40); Blood Urea Nitrogen 13 mg/dL (8-23); Calcium 9.8 mg/dL (8.5-10.5); Carbon Dioxide 29 mmol/L (22-29); Chloride 95 mmol/L (98-107); Globulin 2.9 g/dL (1.3-4.6); Glomerular Filtration Rate 112.5 mL/min (90-130); Glucose 135 mg/dL (65-115); Osmolality Calculated 276 mOsm/kg (285-295); Potassium 3.9 mmol/L (3.5-5.1); Sodium 132 mmol/L (136-145); Thyroid Stimulating Hormone 1.89 uIU/mL (0.27-4.20); Total Bilirubin 0.4 mg/dL (0.15-1.2); Total Protein 7.1 g/dL (6.6-8.7)
[2023-10-04] MEDS: pembrolizumab 400 MG in sodium chloride 0.9% 250 ML 532 MG IV (12:01)
[2023-10-04 12:50] VITALS: BP 107/67; PULSE 67; RESP 18; TEMP 35.7; O2SAT 95
== END 2023-10-04 23:59 | disposition home or self-care (01) ==
PROVIDERS: Nurse Practitioner Family; PCP Nurse Practitioner; Visit Provider Internal Medicine Medical Oncology
DX: C34.12 Malignant neoplasm of upper lobe, left bronchus or lung (principal); Z79.899 Other long term (current) drug therapy; R53.83 Other fatigue
CPT/HCPCS: 80053; 84443; 85025; 96413; 99214; J1642; J7050; J9271

== ENCOUNTER 2023-11-04 09:10 | Outpatient (CLI) | payer MEDICARE, SELFPAY ==
--- NOTE | 2023-11-04 09:30 | MR_ITS ---
WS: [id number] MRI HEAD WITH CONTRAST TECHNIQUE: Sagittal T1, T2 axial, T2 axial FLAIR, axial susceptibility weighted imaging, axial diffus ion weighted images, and coronal T2 images were obtained. Pre and post-T1 axial and post T1 coronal i mages. ADC and FSPGR images. CLINICAL INFORMATION: lung cancer staging COMPARISON: MRI 04/19/23 FINDINGS: No evidence of restricted diffusion to suggest acute ischemia. Ventricular system and basal cisterns are patent. Minimal small vessel changes. Moderate parenchymal volume loss worse in the bilateral par ietal lobes. Normal posterior fossa. Normal vascular flow voids at the skull base. No extra-axial flu id collections. No evidence of mass or mass effect. Paranasal sinuses and mastoid air cells are well aerated. No hemosiderin on susceptibility weighted i mages. Stable benign enhancing venous angioma in the LEFT parietal lobe. No evidence of enhancing int racranial metastatic disease. IMPRESSION: 1. No evidence of enhancing intracranial metastatic disease. 2. No evidence of restricted diffusion to suggest acute ischemia. 3. Minimal small vessel changes. Moderate parenchymal volume loss worse in the parietal lobes. 4. Benign enhancing venous angioma LEFT parietal lobe unchanged from previous. 5. No other suspicious findings.
[2023-11-04] MEDS: gadobenate dimeglumine 20 mL vial IV (10:19)
== END 2023-11-04 09:11 | disposition home or self-care (01) ==
LOC: RAD 09:10
PROVIDERS: PCP Nurse Practitioner; Visit Provider Internal Medicine Medical Oncology
DX: C34.12 Malignant neoplasm of upper lobe, left bronchus or lung (principal)
CPT/HCPCS: 70553; A9577

== ENCOUNTER 2023-11-11 11:19 | Outpatient (CLI) | payer MEDICARE, SELFPAY ==
[2023-11-11] MEDS: iohexol 350 mg/mL 500 mL Btl (per mL) PO (11:27)
[2023-11-11] MEDS: iohexol 350 mg/mL 500 mL Btl (per mL) IV (12:28)
--- NOTE | 2023-11-11 12:30 | CT_ITS ---
WS: [id number] CT CHEST, ABDOMEN, AND PELVIS TECHNIQUE: Contrast-enhanced CT of the chest, abdomen, and pelvis with coronal and sagittal reformatt ed images. CLINICAL INFORMATION: lung cancer COMPARISON: PET/CT 08/03/[address] 06/30/2023 DLP: 843.[address] scans at [facility] use at least one of these dose optimization techniques: automated e xposure control; mA and/or kV adjustment per patient size (includes targeted exams where dose is matc hed to clinical indication); or iterative reconstruction. CT CHEST: Moderate chronic emphysematous changes. No acute pulmonary infiltrates. No focal pneumonia or pleural fluid. Few calcified granulomas. Normal thyroid gland. Normal caliber thoracic aorta. Mild aortic calcification. Coronary calcification. No mediastinal or hilar lymphadenopathy. Calcified med iastinal and hilar lymph nodes. Calcified subcarinal lymph nodes. No axillary lymphadenopathy. Previo usly treated LEFT upper lobe neoplasm along the fissure with a tiny amount of residual parenchymal sc arring is unchanged in appearance since PET/CT 08/03/2023. No new or progressed pulmonary parenchymal abnormalities. No evidence of progressed disease in the chest. Prior T7 kyphoplasty. Stable appearing compression deformity inferior endplate L1 with sclerosis. Sta ble sclerotic metastasis RIGHT L5 vertebral body with compression of the RIGHT superior endplate unch anged. CT ABDOMEN AND PELVIS: Prior cholecystectomy. Prior appendectomy. Treated RIGHT adrenal metastasis with a small amount of re sidual nodularity. This is stable compared to the PET/CT 08/03/2023 without significant residual acti vity on that study. Mild diffuse fatty infiltration of the liver. Portal vein and splenic vein are pa tent. Mild fatty atrophy of the pancreas. Splenic granulomas. Normal GE junction. LEFT adrenal gland is normal. Normal renal parenchymal enhancement. No hydronephrosis. Incidental small renal cysts. Normal caliber abdominal aorta. Mild aortic calcification. Distended bladder. Small cystocele. Enlarg ed prostate measuring 4.5 cm. Recommend correlation PSA. Mild transverse colon constipation. No evide nce of high-grade small or large bowel obstruction. No adenopathy in the pelvis. No inguinal lymphade nopathy. Treated L5 metastatic lesion with compression of the RIGHT superior endplate is unchanged. IMPRESSION: 1. No evidence of progressed disease in the chest abdomen or pelvis. 2. Previously described LEFT upper lobe treated neoplasm has essentially resolved with a tiny amount of residual parenchymal scarring. No evidence of progression. 3. Prior T7 kyphoplasty. 4. Stable appearing compression deformity inferior endplate L1 with sclerosis. Stable sclerotic meta stasis RIGHT L5 vertebral body with slight compression of the RIGHT superior end plate. 5. Treated RIGHT adrenal metastasis with mild residual nodularity unchanged since the PET/CT 023 6. Enlarged prostate measuring 4.5 cm. Recommend correlation PSA.
== END 2023-11-11 11:20 | disposition home or self-care (01) ==
LOC: RAD 11:19
PROVIDERS: PCP Nurse Practitioner; Visit Provider Internal Medicine Medical Oncology
DX: C34.12 Malignant neoplasm of upper lobe, left bronchus or lung (principal); C79.51 Secondary malignant neoplasm of bone; Z98.890 Other specified postprocedural states; N40.0 Benign prostatic hyperplasia without lower urinary tract symptoms
CPT/HCPCS: 71260; 74177; Q9967

== ENCOUNTER 2023-11-15 09:18 | Oncology outpatient (recurring) (ONCR) | payer MEDICARE, SELFPAY ==
[2023-11-15 09:35] VITALS: BP 102/64; PULSE 69; RESP 18; TEMP 36.3; O2SAT 90
[2023-11-15 09:50] LABS: Basophils # 0.1 10^3/uL (0.0-0.1); Basophils % 0.9 %; Eosinophils # 0.4 10^3/uL (0.0-0.8); Eosinophils % 5.1 %; Hematocrit 42.9 % (37-53); Lymphocytes # 2.5 10^3/uL (0.8-4.8); Lymphocytes % 33.7 %; Mean Corpuscular HGB Conc 34.5 g/dL (30-55); Mean Corpuscular Hemoglobin 30.6 pg (27-33); Mean Corpuscular Volume 88.6 fl (82-101); Mean Platelet Volume 8.1 fL (7.4-10.4); Monocytes # 0.5 10^3/uL (0.2-0.9); Monocytes % 6.3 %; Neutrophils # 4.03 10^3/uL (1.8-7.7); Neutrophils % 53.7 %; Nucleated Red Blood Cells % 0 %; Platelet Count 158 10^3/cmm (157-399); Red Blood Count 4.84 10^6/uL (3.85-5.65); Red Cell Distribution Width 13.2 % (12.1-15.1)
[2023-11-15 10:14] LABS: Alanine Aminotransferase 12 U/L (0-41); Albumin Level 4.1 g/dL (3.5-5.2); Alkaline Phosphatase 108 U/L (40-130); Anion Gap 13.1 (5-19); Aspartate Amino Transferase 14 U/L (0-40); Blood Urea Nitrogen 14 mg/dL (8-23); Calcium 9.7 mg/dL (8.5-10.5); Carbon Dioxide 28 mmol/L (22-29); Chloride 96 mmol/L (98-107); Globulin 3.1 g/dL (1.3-4.6); Glomerular Filtration Rate 96.4 mL/min (90-130); Glucose 105 mg/dL (65-115); Osmolality Calculated 277 mOsm/kg (285-295); Potassium 4.1 mmol/L (3.5-5.1); Sodium 133 mmol/L (136-145); Thyroid Stimulating Hormone 3.92 uIU/mL (0.27-4.20); Total Bilirubin 0.4 mg/dL (0.15-1.2); Total Protein 7.2 g/dL (6.6-8.7)
[2023-11-15] MEDS: pembrolizumab 400 MG in sodium chloride 0.9% 250 ML 532 MG IV (12:05)
[2023-11-15 12:41] LABS: Prostate Specific Antigen 0.301 ng/mL (0-4)
[2023-11-15 12:51] VITALS: BP 105/64; PULSE 67; RESP 16; TEMP 36.5; O2SAT 91
== END 2023-11-15 23:59 | disposition home or self-care (01) ==
PROVIDERS: Internal Medicine; PCP Nurse Practitioner; Visit Provider Internal Medicine Medical Oncology
DX: C34.12 Malignant neoplasm of upper lobe, left bronchus or lung (principal); Z79.899 Other long term (current) drug therapy; Z51.11 Encounter for antineoplastic chemotherapy; R53.83 Other fatigue; C79.51 Secondary malignant neoplasm of bone
CPT/HCPCS: 99214; 80053; 84153; 84443; 85025; 96413; J1642; J7050; J9271

== ENCOUNTER 2023-12-06 07:55 | Oncology outpatient (recurring) (ONCR) | payer MEDICARE, SELFPAY ==
[2023-12-06 08:03] VITALS: BP 101/68; PULSE 75; RESP 18; TEMP 36.4; O2SAT 92
[2023-12-06] MEDS: zoledronic acid (Zometa) 4 MG/100 ML PIGGYBACK 400 MG IV (08:12)
[2023-12-06] MEDS: sodium chloride 0.9% (100 ml) 100 ML 75 ML (08:15)
[2023-12-06 08:32] VITALS: BP 95/65; PULSE 74; RESP 18; TEMP 36.8; O2SAT 92
== END 2023-12-16 23:59 | disposition home or self-care (01) ==
PROVIDERS: PCP Nurse Practitioner; Visit Provider Internal Medicine Medical Oncology
DX: C34.12 Malignant neoplasm of upper lobe, left bronchus or lung (principal); Z79.899 Other long term (current) drug therapy
CPT/HCPCS: 96365; J1642; J3489

== ENCOUNTER 2023-12-27 09:30 | Oncology outpatient (recurring) (ONCR) | payer MEDICARE, SELFPAY ==
[2023-12-27 09:44] LABS: Basophils # 0.1 10^3/uL (0.0-0.1); Basophils % 0.9 %; Eosinophils # 0.3 10^3/uL (0.0-0.8); Eosinophils % 2.5 %; Hematocrit 45.3 % (37-53); Lymphocytes # 2.3 10^3/uL (0.8-4.8); Lymphocytes % 21.8 %; Mean Corpuscular HGB Conc 34.4 g/dL (30-55); Mean Corpuscular Hemoglobin 29.4 pg (27-33); Mean Corpuscular Volume 85.5 fl (82-101); Mean Platelet Volume 8.5 fL (7.4-10.4); Monocytes # 0.5 10^3/uL (0.2-0.9); Monocytes % 5.2 %; Neutrophils # 7.18 10^3/uL (1.8-7.7); Neutrophils % 69.2 %; Nucleated Red Blood Cells % 0 %; Platelet Count 176 10^3/cmm (157-399); Red Cell Distribution Width 13.8 % (12.1-15.1); White Blood Count 10.37 10^3/uL (3.29-11.43)
[2023-12-27 10:22] LABS: Alanine Aminotransferase 21 U/L (0-41); Albumin Level 4.3 g/dL (3.5-5.2); Alkaline Phosphatase 111 U/L (40-130); Anion Gap 14.5 (5-19); Aspartate Amino Transferase 16 U/L (0-40); Blood Urea Nitrogen 15 mg/dL (8-23); Calcium 8.9 mg/dL (8.5-10.5); Carbon Dioxide 28 mmol/L (22-29); Chloride 94 mmol/L (98-107); Creatinine Clr Calc Pharmacy 87.8122; Globulin 3.1 g/dL (1.3-4.6); Glomerular Filtration Rate 84.2 mL/min (90-130); Glucose 113 mg/dL (65-115); Osmolality Calculated 276 mOsm/kg (285-295); Potassium 4.5 mmol/L (3.5-5.1); Sodium 132 mmol/L (136-145); Thyroid Stimulating Hormone 3.01 uIU/mL (0.27-4.20); Total Bilirubin 0.6 mg/dL (0.15-1.2); Total Protein 7.4 g/dL (6.6-8.7)
[2023-12-27] MEDS: pembrolizumab 400 MG in sodium chloride 0.9% 250 ML 532 MG IV (11:45)
[2023-12-27 12:31] VITALS: BP 94/59; PULSE 60; RESP 18; TEMP 36.7; O2SAT 94
== END 2023-12-27 23:59 | disposition home or self-care (01) ==
PROVIDERS: Internal Medicine; PCP Nurse Practitioner; Visit Provider Internal Medicine Medical Oncology
DX: C34.12 Malignant neoplasm of upper lobe, left bronchus or lung (principal); Z51.12 Encounter for antineoplastic immunotherapy; C79.51 Secondary malignant neoplasm of bone; R53.83 Other fatigue; Z53.9 Procedure and treatment not carried out, unspecified reason
CPT/HCPCS: 80053; 84443; 85025; 96413; 99214; J1642; J7050; J9271

== ENCOUNTER 2024-01-03 10:43 | Oncology outpatient (recurring) (ONCR) | payer MEDICARE, SELFPAY ==
[2024-01-03 11:00] VITALS: BP 103/58; PULSE 59; RESP 16; O2SAT 97
[2024-01-03] MEDS: zoledronic acid (Zometa) 4 MG/100 ML PIGGYBACK 400 MG IV (11:06)
== END 2024-01-16 23:59 | disposition home or self-care (01) ==
LOC: ONCMED 10:44
PROVIDERS: PCP Nurse Practitioner; Visit Provider Internal Medicine Medical Oncology
DX: C79.51 Secondary malignant neoplasm of bone
CPT/HCPCS: 96365; J1642; J3489

== ENCOUNTER 2024-02-07 10:59 | Oncology outpatient (recurring) (ONCR) | payer MEDICARE, SELFPAY ==
[2024-02-07 11:15] LABS: Basophils # 0.1 10^3/uL (0.0-0.1); Basophils % 0.7 %; Eosinophils # 0.1 10^3/uL (0.0-0.8); Eosinophils % 1.2 %; Hematocrit 42.4 % (37-53); Lymphocytes # 1.8 10^3/uL (0.8-4.8); Lymphocytes % 19.5 %; Mean Corpuscular Hemoglobin 28.8 pg (27-33); Mean Corpuscular Volume 84.8 fl (82-101); Mean Platelet Volume 8.2 fL (7.4-10.4); Monocytes # 0.4 10^3/uL (0.2-0.9); Monocytes % 4.6 %; Neutrophils # 6.73 10^3/uL (1.8-7.7); Neutrophils % 73.6 %; Nucleated Red Blood Cells % 0 %; Platelet Count 176 10^3/cmm (157-399); Red Cell Distribution Width 14.8 % (12.1-15.1); White Blood Count 9.14 10^3/uL (3.29-11.43)
[2024-02-07 11:44] LABS: Alanine Aminotransferase 16 U/L (0-41); Albumin Level 3.9 g/dL (3.5-5.2); Alkaline Phosphatase 105 U/L (40-130); Anion Gap 12.3 (5-19); Aspartate Amino Transferase 12 U/L (0-40); Blood Urea Nitrogen 14 mg/dL (8-23); Calcium 9.3 mg/dL (8.5-10.5); Carbon Dioxide 30 mmol/L (22-29); Chloride 92 mmol/L (98-107); Globulin 3.4 g/dL (1.3-4.6); Glomerular Filtration Rate 96.4 mL/min (90-130); Glucose 141 mg/dL (65-115); Osmolality Calculated 273 mOsm/kg (285-295); Potassium 4.3 mmol/L (3.5-5.1); Prostate Specific Antigen 0.305 ng/mL (0-4); Sodium 130 mmol/L (136-145); Thyroid Stimulating Hormone 1.76 uIU/mL (0.27-4.20); Total Bilirubin 0.5 mg/dL (0.15-1.2); Total Protein 7.3 g/dL (6.6-8.7)
[2024-02-07] MEDS: ipratropium-albuterol 3 mL Neb INHALATION (13:56)
[2024-02-07] MEDS: sodium chloride 0.9% 250 ML 75 ML IV (13:57)
[2024-02-07] MEDS: zoledronic acid (Zometa) 4 MG/100 ML PIGGYBACK 400 MG IV (13:57)
[2024-02-07] MEDS: pembrolizumab 400 MG in sodium chloride 0.9% 250 ML 532 MG IV (14:23)
[2024-02-07 15:00] VITALS: BP 106/67; PULSE 65; RESP 18; TEMP 36.6; O2SAT 97
== END 2024-02-07 23:59 | disposition home or self-care (01) ==
PROVIDERS: Nurse Practitioner Family; PCP Nurse Practitioner; Visit Provider Internal Medicine Medical Oncology
DX: C79.51 Secondary malignant neoplasm of bone (principal); Z53.9 Procedure and treatment not carried out, unspecified reason; Z51.12 Encounter for antineoplastic immunotherapy; C34.12 Malignant neoplasm of upper lobe, left bronchus or lung
CPT/HCPCS: 80053; 84153; 84443; 85025; 96365; 96413; 99214; A4222; J3489; J7050; J9271

== ENCOUNTER 2024-03-07 14:45 | Oncology outpatient (recurring) (ONCR) | payer MEDICARE, SELFPAY ==
[2024-03-07 15:20] VITALS: BP 93/58; PULSE 76; RESP 17; TEMP 36.3; O2SAT 92
[2024-03-07] MEDS: zoledronic acid (Zometa) 4 MG/100 ML PIGGYBACK 400 MG IV (15:36)
[2024-03-07 16:04] VITALS: BP 93/56; PULSE 88; RESP 17; TEMP 36.6; O2SAT 92
== END 2024-03-17 23:59 | disposition home or self-care (01) ==
PROVIDERS: PCP Nurse Practitioner; Visit Provider Internal Medicine Medical Oncology
DX: C79.51 Secondary malignant neoplasm of bone (principal)
CPT/HCPCS: 96365; J3489

== ENCOUNTER 2024-03-20 10:45 | Oncology outpatient (recurring) (ONCR) | payer MEDICARE, SELFPAY ==
[2024-03-20] MEDS: alteplase 1 mg/mL SDV 2 mL 2 MG INTRACATH (11:08)
[2024-03-20 11:21] LABS: Basophils # 0.1 10^3/uL (0.0-0.1); Basophils % 0.7 %; Eosinophils # 0.2 10^3/uL (0.0-0.8); Eosinophils % 1.8 %; Hematocrit 44.5 % (37-53); Lymphocytes # 2.3 10^3/uL (0.8-4.8); Lymphocytes % 27.3 %; Mean Corpuscular HGB Conc 33.7 g/dL (30-55); Mean Corpuscular Hemoglobin 29.5 pg (27-33); Mean Corpuscular Volume 87.4 fl (82-101); Mean Platelet Volume 8.2 fL (7.4-10.4); Monocytes # 0.4 10^3/uL (0.2-0.9); Neutrophils # 5.44 10^3/uL (1.8-7.7); Neutrophils % 64.4 %; Nucleated Red Blood Cells % 0 %; Platelet Count 172 10^3/cmm (157-399); Red Blood Count 5.09 10^6/uL (3.85-5.65); Red Cell Distribution Width 15.8 % (12.1-15.1); White Blood Count 8.44 10^3/uL (3.29-11.43)
[2024-03-20 11:37] LABS: Alanine Aminotransferase 13 U/L (0-41); Alkaline Phosphatase 85 U/L (40-130); Anion Gap 12.5 (5-19); Aspartate Amino Transferase 13 U/L (0-40); Blood Urea Nitrogen 11 mg/dL (8-23); Calcium 8.7 mg/dL (8.5-10.5); Carbon Dioxide 30 mmol/L (22-29); Chloride 94 mmol/L (98-107); Globulin 2.9 g/dL (1.3-4.6); Glomerular Filtration Rate 96.4 mL/min (90-130); Glucose 98 mg/dL (65-115); Osmolality Calculated 273 mOsm/kg (285-295); Potassium 4.5 mmol/L (3.5-5.1); Sodium 132 mmol/L (136-145); Total Bilirubin 0.3 mg/dL (0.15-1.2); Total Protein 6.9 g/dL (6.6-8.7)
[2024-03-20] MEDS: pembrolizumab 400 MG in sodium chloride 0.9% 250 ML 532 MG IV (14:00)
[2024-03-20 14:47] VITALS: BP 97/60; PULSE 62; TEMP 36.6; O2SAT 96
== END 2024-03-20 23:59 | disposition home or self-care (01) ==
PROVIDERS: Nurse Practitioner Family; PCP Nurse Practitioner; Visit Provider Internal Medicine Medical Oncology
DX: C79.51 Secondary malignant neoplasm of bone (principal); Z53.9 Procedure and treatment not carried out, unspecified reason; Z51.12 Encounter for antineoplastic immunotherapy; Z79.899 Other long term (current) drug therapy
CPT/HCPCS: 36415; 36593; 80053; 85025; 96413; 99214; J2997; J7050; J9271

== ENCOUNTER 2024-03-22 06:00 | Outpatient (RCR) | payer MEDICARE, SELFPAY | END 2024-04-16 23:59 | disposition home or self-care (01) | LOC: APT 06:00 | PROVIDERS: PCP Nurse Practitioner; Visit Provider Nurse Practitioner Family | DX: M21.372 Foot drop, left foot (principal) | CPT/HCPCS: 97110; 97112; 97162; 97530 ==

== ENCOUNTER 2024-04-04 09:45 | Oncology outpatient (recurring) (ONCR) | payer MEDICARE, SELFPAY ==
[2024-04-04 10:05] VITALS: BP 89/53; PULSE 60; RESP 16; TEMP 36.8; O2SAT 96
[2024-04-04] MEDS: zoledronic acid (Zometa) 4 MG/100 ML PIGGYBACK 400 MG IV (10:26)
[2024-04-04 11:10] VITALS: BP 103/64; PULSE 64; RESP 16; O2SAT 97
== END 2024-04-16 23:59 | disposition home or self-care (01) ==
LOC: ONCMED 09:47
PROVIDERS: PCP Nurse Practitioner; Visit Provider Internal Medicine Medical Oncology
DX: C79.51 Secondary malignant neoplasm of bone (principal)
CPT/HCPCS: 96374; J3489

== ENCOUNTER 2024-04-17 06:00 | Outpatient (RCR) | payer MEDICARE, SELFPAY | END 2024-05-17 23:59 | disposition home or self-care (01) | LOC: APT 06:00 | PROVIDERS: PCP Nurse Practitioner; Visit Provider Nurse Practitioner Family | DX: M21.372 Foot drop, left foot (principal) | CPT/HCPCS: 97110; 97112; 97530 ==

== ENCOUNTER 2024-05-01 09:15 | Oncology outpatient (recurring) (ONCR) | payer MEDICARE, SELFPAY ==
[2024-05-01 09:38] LABS: Basophils # 0.1 10^3/uL (0.0-0.1); Basophils % 0.7 %; Eosinophils # 0.2 10^3/uL (0.0-0.8); Eosinophils % 2.9 %; Lymphocytes % 24.8 %; Mean Corpuscular Hemoglobin 29.9 pg (27-33); Mean Corpuscular Volume 90.7 fl (82-101); Mean Platelet Volume 8.5 fL (7.4-10.4); Monocytes # 0.5 10^3/uL (0.2-0.9); Monocytes % 6.4 %; Neutrophils # 5.18 10^3/uL (1.8-7.7); Neutrophils % 64.6 %; Nucleated Red Blood Cells % 0 %; Platelet Count 156 10^3/cmm (157-399); Red Blood Count 4.85 10^6/uL (3.85-5.65); Red Cell Distribution Width 15.6 % (12.1-15.1); White Blood Count 8.02 10^3/uL (3.29-11.43)
[2024-05-01 09:54] LABS: Alanine Aminotransferase 11 U/L (0-41); Albumin Level 3.8 g/dL (3.5-5.2); Alkaline Phosphatase 90 U/L (40-130); Aspartate Amino Transferase 13 U/L (0-40); Blood Urea Nitrogen 9 mg/dL (8-23); Calcium 8.6 mg/dL (8.5-10.5); Carbon Dioxide 28 mmol/L (22-29); Chloride 100 mmol/L (98-107); Globulin 2.5 g/dL (1.3-4.6); Glucose 134 mg/dL (65-115); Osmolality Calculated 287 mOsm/kg (285-295); Sodium 138 mmol/L (136-145); Total Bilirubin 0.3 mg/dL (0.15-1.2); Total Protein 6.3 g/dL (6.6-8.7)
[2024-05-01 09:55] LABS: Anion Gap 14.3 (5-19); Potassium 4.3 mmol/L (3.5-5.1)
[2024-05-01 12:10] VITALS: BP 115/72; PULSE 71; RESP 16; TEMP 36.6; O2SAT 91
[2024-05-01] MEDS: zoledronic acid (Zometa) 4 MG/100 ML PIGGYBACK 400 MG IV (12:15)
[2024-05-01] MEDS: pembrolizumab 400 MG in sodium chloride 0.9% 250 ML 532 MG IV (12:55)
[2024-05-01 13:35] VITALS: BP 116/70; PULSE 73; RESP 17; TEMP 36.2; O2SAT 95
== END 2024-05-01 23:59 | disposition home or self-care (01) ==
PROVIDERS: Nurse Practitioner Family; PCP Nurse Practitioner; Visit Provider Internal Medicine Medical Oncology
DX: C79.51 Secondary malignant neoplasm of bone (principal); Z51.12 Encounter for antineoplastic immunotherapy; C34.12 Malignant neoplasm of upper lobe, left bronchus or lung; E11.65 Type 2 diabetes mellitus with hyperglycemia; Z79.84 Long term (current) use of oral hypoglycemic drugs
CPT/HCPCS: 80053; 84443; 85025; 96365; 96413; 99214; A4222; J3489; J7050; J9271

== ENCOUNTER 2024-05-15 12:11 | Oncology outpatient (recurring) (ONCR) | payer MEDICARE, SELFPAY ==
--- NOTE | 2024-05-15 12:30 | USCV_ITS ---
Oleg Garvey Age: 69 Gender: M : 1955 Exam Date: 05/15/2024 12:18 Ordering Phys: Adry Guaman APRN Technologist: Exam Location: [facility] – [place] Indication: HX SC BP: 107 / 68 HR: 71 Rhythm: Sinus Technical Quality: Adequate MEASUREMENTS (Male / Female) Normal Values 2D ECHO LV Diastolic Diameter PLAX 5.1 cm 4.2 - 5.9 / 3.9 - 5.3 cm IVS Diastolic Thickness 1.3 cm 0.6 - 1.0 / 0.6 - 0.9 cm IVS Systolic Thickness 1.7 cm LVPW Diastolic Thickness 1.2 cm 0.6 - 1.0 / 0.6 - 0.9 cm LVPW Systolic Thickness 1.7 cm LVOT Diameter 2.1 cm LV Ejection Fraction 2D Teich 58.2 % LV Ejection Fraction MOD 4C 68.6 % LA Diameter 3.6 cm RA Systolic Volume 4C AL 23.0 ml RA Systolic Volume 4C MOD 22.6 ml Aorta at Sinotubular Diameter 2.7 cm IVC Diameter 1.9 cm M-MODE LA Ao Ratio MM 1.1 AV Cusp Separation MM 1.5 cm DOPPLER AV Peak Velocity 272.0 cm/s LVOT Peak Velocity 81.0 cm/s AV Area Cont Eq vti 1.2 cm squared AV Area Cont Eq pk 1.0 cm squared MV Area PHT 4.2 cm squared Mitral E to A Ratio 1.1 TV Peak Velocity 147.5 cm/s TR Peak Velocity 165.0 cm/s TR Peak Gradient 10.9 mmHg TV Peak E Velocity 117.0 cm/s Right Atrial Pressure 3.0 mmHg Pulmonary Artery Systolic Pressu 13.9 mmHg PV Peak Velocity 101.0 cm/s FINDINGS Left Ventricle Normal left ventricular size and systolic function, EF 69%.no regional wall motion abnormalities. Grade I/IV diastolic dysfunction (abnormal relaxation filling pattern), normal to mildly elevated filling pressures. Right Ventricle The right ventricle is normal in size and function. Right Atrium The right atrium is normal in size. Left Atrium The left atrium is normal in size. Mitral Valve Trace mitral valve regurgitation. Aortic Valve Moderate aortic valve stenosis with a peak velocity of 2.72 m/s with a peak gradient of 30 and a mean gradient of 15 mmHg. Valve area was calculated to be 1.2 cm squared. Tricuspid Valve No gross abnormalities noted Pulmonic Valve Pulmonic valve not well visualized. Pericardium Normal pericardium without effusion. Aorta Normal ascending aorta dimension. IVC The inferior vena cava appears normal. CONCLUSIONS Normal left ventricular size and systolic function, EF 69%.no regional wall motion abnormalities. Grade I/IV diastolic dysfunction (abnormal relaxation filling pattern), normal to mildly elevated filling pressures. Trace mitral valve regurgitation. Moderate aortic valve stenosis with a peak velocity of 2.72 m/s with a peak gradient of 30 and a mean gradient of 15 mmHg. Valve area was calculated to be 1.2 cm squared. There is no pericardial effusion. There are no intracardiac masses. No similar previous studies are available for comparison Dr Jose G Chowdary MD [facility] (Electronically Signed) Final Date: 15 May 2024 21:11 S
== END 2024-05-17 23:59 | disposition home or self-care (01) ==
PROVIDERS: PCP Nurse Practitioner; Visit Provider Nurse Practitioner Family
DX: C34.12 Malignant neoplasm of upper lobe, left bronchus or lung (principal); R60.0 Localized edema; I34.0 Nonrheumatic mitral (valve) insufficiency
CPT/HCPCS: 93306

== ENCOUNTER 2024-05-18 06:00 | Outpatient (RCR) | payer MEDICARE, SELFPAY | END 2024-06-17 23:59 | disposition home or self-care (01) | LOC: APT 06:00 | PROVIDERS: PCP Nurse Practitioner; Visit Provider Nurse Practitioner Family | DX: M21.372 Foot drop, left foot (principal) | CPT/HCPCS: 97110; 97112; 97530 ==

== ENCOUNTER 2024-06-12 09:30 | Oncology outpatient (recurring) (ONCR) | payer MEDICARE, SELFPAY ==
[2024-05-29 15:06] VITALS: BP 114/69; PULSE 65; RESP 16; TEMP 36.2; O2SAT 94
[2024-05-29 15:32] LABS: Anion Gap 13.1 (5-19); Blood Urea Nitrogen 11 mg/dL (8-23); Calcium 8.9 mg/dL (8.5-10.5); Carbon Dioxide 31 mmol/L (22-29); Chloride 98 mmol/L (98-107); Glomerular Filtration Rate 96.1 mL/min (90-130); Glucose 154 mg/dL (65-115); Osmolality Calculated 288 mOsm/kg (285-295); Potassium 4.1 mmol/L (3.5-5.1); Sodium 138 mmol/L (136-145)
[2024-05-29] MEDS: zoledronic acid (Zometa) 4 MG/100 ML PIGGYBACK 400 MG IV (15:43)
[2024-05-29 16:04] VITALS: BP 104/64; PULSE 66; RESP 16; TEMP 36.3; O2SAT 94
[2024-06-12 09:38] LABS: Basophils # 0.1 10^3/uL (0.0-0.1); Basophils % 0.8 %; Eosinophils # 0.2 10^3/uL (0.0-0.8); Eosinophils % 2.3 %; Hematocrit 45.9 % (37-53); Lymphocytes # 1.7 10^3/uL (0.8-4.8); Lymphocytes % 19.9 %; Mean Corpuscular HGB Conc 32.5 g/dL (30-55); Mean Corpuscular Hemoglobin 29.1 pg (27-33); Mean Corpuscular Volume 89.6 fl (82-101); Mean Platelet Volume 8.6 fL (7.4-10.4); Monocytes # 0.6 10^3/uL (0.2-0.9); Monocytes % 6.7 %; Neutrophils # 6.07 10^3/uL (1.8-7.7); Neutrophils % 69.8 %; Nucleated Red Blood Cells % 0 %; Platelet Count 173 10^3/cmm (157-399); Red Blood Count 5.12 10^6/uL (3.85-5.65); Red Cell Distribution Width 14.7 % (12.1-15.1); White Blood Count 8.69 10^3/uL (3.29-11.43)
[2024-06-12 09:56] LABS: Alanine Aminotransferase 10 U/L (0-41); Albumin Level 4.1 g/dL (3.5-5.2); Alkaline Phosphatase 108 U/L (40-130); Anion Gap 13.4 (5-19); Aspartate Amino Transferase 11 U/L (0-40); Blood Urea Nitrogen 10 mg/dL (8-23); Calcium 8.6 mg/dL (8.5-10.5); Carbon Dioxide 30 mmol/L (22-29); Chloride 101 mmol/L (98-107); Glomerular Filtration Rate 96.1 mL/min (90-130); Glucose 130 mg/dL (65-115); Osmolality Calculated 293 mOsm/kg (285-295); Potassium 3.4 mmol/L (3.5-5.1); Sodium 141 mmol/L (136-145); Total Bilirubin 0.4 mg/dL (0.15-1.2); Total Protein 7.1 g/dL (6.6-8.7)
[2024-06-12 11:30] LABS: Thyroid Stimulating Hormone 2.78 uIU/mL (0.27-4.20)
[2024-06-12] MEDS: pembrolizumab 400 MG in sodium chloride 0.9% 250 ML 532 MG IV (12:24)
[2024-06-12 13:00] VITALS: BP 108/64; PULSE 65; RESP 16; TEMP 36.6; O2SAT 95
== END 2024-06-12 23:59 | disposition home or self-care (01) ==
PROVIDERS: Nurse Practitioner Family; PCP Nurse Practitioner; Visit Provider Internal Medicine Medical Oncology
DX: C79.51 Secondary malignant neoplasm of bone (principal); Z51.11 Encounter for antineoplastic chemotherapy; C34.12 Malignant neoplasm of upper lobe, left bronchus or lung; C77.1 Secondary and unspecified malignant neoplasm of intrathoracic lymph nodes; C79.71 Secondary malignant neoplasm of right adrenal gland; F41.8 Other specified anxiety disorders; Z79.52 Long term (current) use of systemic steroids; E87.6 Hypokalemia; I10 Essential (primary) hypertension; I25.10 Atherosclerotic heart disease of native coronary artery without angina pectoris
CPT/HCPCS: 80048; 80053; 84443; 85025; 96413; 99214; A4222; J3489; J7050; J9271

== ENCOUNTER → 2024-06-21 11:25 | Outpatient (BNVA) | payer MEDICARE, SELFPAY | PROVIDERS: PCP Nurse Practitioner; Visit Provider Internal Medicine Medical Oncology | DX: E11.65 Type 2 diabetes mellitus with hyperglycemia (principal); C34.12 Malignant neoplasm of upper lobe, left bronchus or lung; C79.51 Secondary malignant neoplasm of bone; R53.83 Other fatigue | CPT/HCPCS: 80053; 84443; 85025; 87400; 87426 ==

== ENCOUNTER 2024-07-03 08:07 | Oncology outpatient (recurring) (ONCR) | payer MEDICARE, SELFPAY ==
[2024-07-03 08:37] LABS: Basophils # 0.1 10^3/uL (0.0-0.1); Basophils % 1.1 %; Eosinophils # 0.3 10^3/uL (0.0-0.8); Eosinophils % 4.5 %; Lymphocytes # 1.9 10^3/uL (0.8-4.8); Mean Corpuscular HGB Conc 32.7 g/dL (30-55); Mean Corpuscular Hemoglobin 29.1 pg (27-33); Mean Corpuscular Volume 88.9 fl (82-101); Mean Platelet Volume 8.5 fL (7.4-10.4); Monocytes # 0.6 10^3/uL (0.2-0.9); Monocytes % 9.5 %; Neutrophils % 54.6 %; Nucleated Red Blood Cells % 0 %; Platelet Count 170 10^3/cmm (157-399); Red Blood Count 5.06 10^6/uL (3.85-5.65); Red Cell Distribution Width 14.6 % (12.1-15.1); White Blood Count 6.41 10^3/uL (3.29-11.43)
[2024-07-03 09:06] LABS: Alanine Aminotransferase 9 U/L (0-41); Albumin Level 3.8 g/dL (3.5-5.2); Alkaline Phosphatase 121 U/L (40-130); Aspartate Amino Transferase 13 U/L (0-40); Blood Urea Nitrogen 12 mg/dL (8-23); Calcium 9.1 mg/dL (8.5-10.5); Carbon Dioxide 31 mmol/L (22-29); Chloride 101 mmol/L (98-107); Creatinine Clr Calc Pharmacy 92.0524; Glomerular Filtration Rate 83.9 mL/min (90-130); Glucose 140 mg/dL (65-115); Osmolality Calculated 290 mOsm/kg (285-295); Sodium 139 mmol/L (136-145); Thyroid Stimulating Hormone 1.72 uIU/mL (0.27-4.20); Total Bilirubin 0.6 mg/dL (0.15-1.2); Total Protein 6.8 g/dL (6.6-8.7)
[2024-07-03] MEDS: zoledronic acid (Zometa) 4 MG/100 ML PIGGYBACK 400 MG IV (10:25)
[2024-07-03 10:48] VITALS: BP 132/82; PULSE 70; TEMP 36.8; O2SAT 90
== END 2024-07-17 23:59 | disposition home or self-care (01) ==
PROVIDERS: Nurse Practitioner; PCP Nurse Practitioner; Visit Provider Internal Medicine Medical Oncology
DX: Z53.9 Procedure and treatment not carried out, unspecified reason; C79.51 Secondary malignant neoplasm of bone; C34.12 Malignant neoplasm of upper lobe, left bronchus or lung; Z92.3 Personal history of irradiation; I95.9 Hypotension, unspecified; Z79.899 Other long term (current) drug therapy; F41.8 Other specified anxiety disorders
CPT/HCPCS: 36592; 80053; 84443; 85025; 96365; 99214; J3489

== ENCOUNTER 2024-07-19 14:21 | Inpatient (IN) | payer MEDICARE, SELFPAY ==
[2024-07-19] VITALS (12 sets, daily range): BP systolic 98–153; BP diastolic 56–87; PULSE 69–80; RESP 16–67; TEMP 36.4–36.8; O2SAT 76–94; BMI 26.8
--- NOTE | 2024-07-19 14:24 | ECG_ITS ---
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 Measurements Intervals [place] Rate: 67 P: 59 WY: 168 QRS: 59 QRSD: 152 T: 36 QT: 450 QTc: 475 Interpretive Statements SINUS RHYTHM RIGHT BUNDLE BRANCH BLOCK [120+ ms QRS DURATION, UPRIGHT V1, 40+ ms S IN I/aVL/V4/V5/V6] No previous ECG available for comparison Electronically Signed On 07-19-2024 23:28:37 CDT by Jose G Chowdary M.D. [email or web address] Servicesmerit health [email or web address] [id number]
--- NOTE | 2024-07-19 14:25 | XRR_ITS ---
PROCEDURE INFORMATION: Exam: XR Chest Exam date and time: 07/19/2024 3:17 PM Age: 69 years old Clinical indication: Shortness of breath; Additional info: SOB TECHNIQUE: Imaging protocol: Radiologic exam of the chest. Views: 1 view. COMPARISON: CT chest abdpel w/*[id number] 11/11/2023 12:25 PM FINDINGS: Tubes, catheters and devices: Tip of the right chest wall port projects over the mid SVC. Lungs: No focal consolidation. Mild interstitial and vascular prominence. Pleural spaces: No pneumothorax or pleural effusion. Heart/Mediastinum: Cardiomediastinal silhouette is unremarkable. Bones/joints: No acute osseous or soft tissue abnormality. XR/XR chest 1V portable [id number] IMPRESSION: Suspect mild interstitial pulmonary edema.
--- NOTE | 2024-07-19 14:35 | W.ED.SOB ---
HPI - SOB/Dyspnea General: Chief Complaint: Shortness of Breath/Dyspnea Stated Complaint: sob Time Seen by Provider: 07/19/24 14:30 History of Present Illness: HPI Narrative: 69-year-old male with history of non-small cell lung cancer, hypertension, diabetes, tobacco dependence and COPD who presents to the emergency room with shortness of breath for about the last week. He says he does not take breathing treatments at home and does not require oxygen normally. Is hypoxemic on presentation here. He follows with Dr. Stevenson is receiving treatment for the cancer. He says he does not think has been diagnosed with COPD but it is listed in his diagnoses in the chart. No altered mental status. No focal motor deficits. No lower extremity swelling. No chest pain. No known fevers. He has had some dry cough. Related Data Home Medications Medication Instructions Recorded Confirmed aspirin 81 mg tablet,delayed 81 mg PO BID 03/18/23 07/19/24 release sennosides 8.6 mg-docusate sodium 1 tab-cap PO DAILY PRN Constipation 10/04/23 07/19/24 50 mg tablet (Senna Plus) Previous Rx's Medication Instructions Recorded blood-glucose meter (OneTouch #1 ea 01/25/23 Ultra2 Meter kit) lancets (OneTouch UltraSoft #100 ea 01/25/23 Lancets) lidocaine-prilocaine 2.5 %-2.5 % 1 applic topical DIRECTED #30 05/20/23 topical cream grams blood sugar diagnostic (OneTouch #50 ea 12/27/23 Ultra Test strips) Foot Drop AFO #1 ea 04/04/24 ondansetron HCl 8 mg tablet See Rx Instructions .Route 06/12/24 .COMPLEX #90 tabs furosemide 40 mg tablet See Rx Instructions .Route 06/14/24 .COMPLEX #30 tabs oxycodone 20 mg tablet 20 mg PO QID PRN pain 30 days #120 06/27/24 tabs citalopram 10 mg tablet See Rx Instructions .Route 07/10/24 .COMPLEX #30 tabs gabapentin 300 mg capsule 300 mg PO TID #90 caps 07/10/24 atorvastatin 40 mg tablet (Lipitor) 40 mg PO DAILY #30 tabs 07/12/24 metoprolol tartrate 25 mg tablet 25 mg PO BID #60 tabs 07/12/24 Allergies Allergy/AdvReac Type Severity Reaction Status Date / Time amoxicillin Allergy Severe ALGY-Rash Verified 07/19/24 13:15 Penicillins Allergy Severe ALGY-Rash Verified 07/19/24 13:15 bupropion [From Wellbutrin] AdvReac Severe ADR-Itching Verified 07/19/24 13:15 Review of Systems Narrative: Constitutional symptoms: Negative except as documented in HPI. Skin symptoms: Negative except as documented in HPI. Eye symptoms: Negative except as documented in HPI. ENMT symptoms: Negative except as documented in HPI. Respiratory symptoms: Negative except as documented in HPI. Cardiovascular symptoms: Negative except as documented in HPI. Gastrointestinal symptoms: Negative except as documented in HPI. Genitourinary symptoms: Negative except as documented in HPI. Musculoskeletal symptoms: Negative except as documented in HPI. Neurologic symptoms: Negative except as documented in HPI. Psychiatric symptoms: Negative except as documented in HPI. Endocrine symptoms: Negative except as documented in HPI. PFSH ED PFSH: Medical History Non-small cell lung cancer Hypertension Diabetes mellitus with hyperglycemia, without long-term current use of insulin Personal history of nicotine dependence Coronary artery disease COPD (chronic obstructive pulmonary disease) with emphysema Surgical History History of kyphoplasty (04/09/23) T7 kyphoplasty with biopsy of the T7 vertebral body and with radiofrequency ablation of T7 tumor Port-A-Cath in place Right chest wall 05/18/23 History of coronary artery stent placement History of cholecystectomy History of appendectomy Family History Other CAD (coronary artery disease) Cancer Hyperlipidemia Hypertension Denies family history of Bleeding disorder Social History Smoking and tobacco/nicotine status: unknown if used tobacco/nicotine Second hand smoke exposure: Yes Alcohol intake: current Alcohol intake frequency: holidays/special occasions only Substance/Drug Use: unknown Adopted: No Caregiver/support person: No Lives independently: Yes Household members: none Housing: House Marital status: Number of children: 1 Number of grandchildren: 3 service: No Current occupational status: retired Do you think of yourself as: Straight/Heterosexual Current gender identity: Male Physical Exam Narrative: EXAM NARRATIVE: General: Alert, no acute distress. Skin: Warm, dry. Head: Normocephalic, atraumatic. Neck: Supple, trachea midline. Eye: Extraocular movements are intact. Ears, nose, mouth and throat: Oral mucosa moist. Cardiovascular: Regular rate and rhythm, Normal peripheral perfusion. Respiratory: coarse, scattered wheeze, mild increased wob. tachypnea, breath sounds are equal, Symmetrical chest wall expansion. Gastrointestinal: Soft, Nontender, Non distended, Normal bowel sounds. Musculoskeletal: Normal ROM, no deformity. Neurological: Alert and oriented to person, place, time, and situation, No focal neurological deficit observed. Psychiatric: Cooperative, appropriate mood & affect. Course Vital Signs: Vital signs: Vital Signs Temperature 98.3 F 07/19/24 14:24 Pulse Rate 69 07/19/24 14:53 Respiratory Rate 67 H 07/19/24 14:56 Blood Pressure 139/74 07/19/24 14:56 Pulse Oximetry 94 07/19/24 14:56 Oxygen Delivery Me thod Nasal Cannula 07/19/24 14:56 Oxygen Flow Rate 4 07/19/24 14:56 MDM - SOB/Dyspnea Medical Decision Making Differential diagnosis for patient with shortness of breath includes but is not limited to and based on the above HPI, review of systems and physical exam: Pneumonia. Bronchitis. Asthma or COPD with acute exacerbation. Acute coronary syndrome / MT. Pulmonary embolism. Anxiety. Congestive heart failure. Viral infections including influenza and Covid-19. Atrial fibrillation. Anxiety. Pleural effusion. Pneumothorax. Orders placed to evaluate differential diagnosis based on the above differential, HPI and physical exam Lab Review: Laboratory results were reviewed and interpreted by myself the emergency room physician. No leukocytosis. No anemia. BUN/creatinine are normal. proBNP is mildly elevated. He does report some swelling in his feet. But does not have any tibial edema. Not overtly hypertensive. Chest x-ray: Probable mild early failure. Also could be a mild pneumonitis. This was reviewed and interpreted by myself the emergency room physician. I also reviewed the radiology report. EKG: Time 1438. Rate 67. Normal sinus rhythm, No ST-T changes, no ectopy, right bundle branch block, This was reviewed and interpreted by myself the ER physician at 1441 I reviewed the patient's medical record. Reexamination: Patient reports improved work of breathing with oxygen. No altered mental status. No focal motor deficits. No increased work of breathing at this time. Breath sounds are slightly improved after breathing treatments. He is stable on 4 L nasal cannula. Consultation: I spoke with Dr. Lockett who is diamond setter apprentice for the hospitalist service who agrees to admission. Assessment and plan: Hypoxemic respiratory failure COPD with acute exacerbation Possible congestive heart failure . Tobacco dependence ?Patient stable on 4 L nasal cannula. He does not require oxygen at home. ? Responded somewhat to steroids and breathing treatments. Likely COPD exacerbation. May also have a component of congestive heart failure. 40 mg IV Lasix were given. 125 mg IV Solu-Medrol. 2 updrafts. IV doxycycline. -I discussed the patient with the hospitalist on-call who is admitting the patient. - Discussed findings and plan with patient. Answered any questions. - All laboratory values were reviewed and interpreted personally by myself, the ER physician - All imaging was reviewed and interpreted personally by myself, the ER physician. - Evaluation and treatment of this problem were appropriate in the emergency setting Critical care -I spent a total of >35 minutes of critical care time managing the patient, independent of any other practitioner. -The time involved in the performance of separately reportable procedures was not counted towards critical care time. Lab Data 07/19/24 14:49 07/19/24 14:49 Labs/Radiology: Radiology Impressions Chest X-Ray 07/19/24 14:25 IMPRESSION: Suspect mild interstitial pulmonary edema. Laboratory Results WBC 7.31 10^3/uL (3.29-11.43) 07/19/24 14:49 RBC 5.30 10^6/uL (3.85-5.65) 07/19/24 14:49 Hgb 15.10 g/dL (11.27-16.99) 07/19/24 14:49 Hct 46.5 % (37-53) 07/19/24 14:49 MCV 87.7 fl (82-101) 07/19/24 14:49 MCH 28.5 pg (27-33) 07/19/24 14:49 MCHC 32.5 g/dL (30-55) 07/19/24 14:49 RDW 14.0 % (12.1-15.1) 07/19/24 14:49 Plt Count 155 10^3/cmm (157-399) L 07/19/24 14:49 MPV 8.6 fL (7.4-10.4) 07/19/24 14:49 Neut % (Auto) 66.5 % 07/19/24 14:49 Lymph % (Auto) 22.4 % 07/19/24 14:49 [place] % (Auto) 9.4 % 07/19/24 14:49 Eos % (Auto) 0.5 % 07/19/24 14:49 Baso % (Auto) 0.8 % 07/19/24 14:49 Neut # (Auto) 4.85 10^3/uL (1.8-7.7) 07/19/24 14:49 Lymph # (Auto) 1.6 10^3/uL (0.8-4.8) 07/19/24 14:49 [place] # (Auto) 0.7 10^3/uL (0.2-0.9) 07/19/24 14:49 Eos # (Auto) 0.0 10^3/uL (0.0-0.8) 07/19/24 14:49 Baso # (Auto) 0.1 10^3/uL (0.0-0.1) 07/19/24 14:49 Nucleated RBC % (auto) 0 % 07/19/24 14:49 Nucleated RBCs # 0.0 /100WBC 07/19/24 14:49 Specimen Type Arterial 07/19/24 14:49 Sample Site Radial, left 07/19/24 14:49 ABG pH 7.39 (7.35-7.45) 07/19/24 14:49 ABG pCO2 52.5 mmHg (35-45) H 07/19/24 14:49 ABG pO2 60.5 mmHg (80.0-100.0) L 07/19/24 14:49 ABG HCO3 32.1 mmol/L (22-26) H 07/19/24 14:49 ABG O2 Saturation 90.8 07/19/24 14:49 ABG Base Excess 5.6 mmol/L (-2.0-2.0) H 07/19/24 14:49 Oswaldo Test Pos 07/19/24 14:49 A-a O2 Gradient 3.3 mmHg (5-10) L 07/19/24 14:49 Hematocrit 46.0 % (42-52) 07/19/24 14:49 Hgb O2 Saturation 83.7 % (95-100) L 07/19/24 14:49 Carboxyhemoglobin 6.8 %THgb (0.4-20.1) 07/19/24 14:49 Methemoglobin 0.9 % (0.4-1.5) 07/19/24 14:49 Total Hemoglobin 15.0 g/dL (14-18) 07/19/24 14:49 Sodium 137.0 mmol/L (131-143) 07/19/24 14:49 Potassium 3.0 mmol/L (3.5-5.0) L 07/19/24 14:49 Glucose 134.0 mg/dL (70-115) H 07/19/24 14:49 Ionized Calcium 1.1 mmol/L (1.1-1.4) 07/19/24 14:49 O2 Delivery Device Nc 07/19/24 14:49 O2 Liters/Min 4.0 % 07/19/24 14:49 Triage Registered Nurse ID Walci 07/19/24 14:49 Sodium 137 mmol/L (136-145) 07/19/24 14:49 Potassium 3.3 mmol/L (3.5-5.1) L 07/19/24 14:49 Chloride 97 mmol/L (98-107) L 07/19/24 14:49 Carbon Dioxide 32 mmol/L (22-29) H 07/19/24 14:49 Anion Gap 11.3 (5-19) 07/19/24 14:49 BUN 9 mg/dL (8-23) 07/19/24 14:49 Creatinine 0.9 mg/dL (0.7-1.2) 07/19/24 14:49 GFR Calculation 83.9 mL/min (90-130) L 07/19/24 14:49 Glucose 127 mg/dL (65-115) H 07/19/24 14:49 Calculated Osmolality 284 mOsm/kg (285-295) L 07/19/24 14:49 Lactic Acid 2.0 mmol/L (0.5-2.2) 07/19/24 14:49 Calcium 8.6 mg/dL (8.5-10.5) 07/19/24 14:49 Total Bilirubin 0.9 mg/dL (0.15-1.2) 07/19/24 14:49 AST 11 U/L (0-40) 07/19/24 14:49 ALT 9 U/L (0-41) 07/19/24 14:49 Alkaline Phosphatase 137 U/L (40-130) H 07/19/24 14:49 C-Reactive Protein 28.1 mg/L (0.0-4.9) H 07/19/24 14:49 NT-Pro-B Natriuret Pep 1060 pg/mL (0-125) H 07/19/24 14:49 Total Protein 7.3 g/dL (6.6-8.7) 07/19/24 14:49 Albumin 3.9 g/dL (3.5-5.2) 07/19/24 14:49 Globulin 3.4 g/dL (1.3-4.6) 07/19/24 14:49 All radiology interpretation(s) finalized by discharge Discharge Plan Discharge Patient Disposition: Admitted As Inpatient Clinical Impression: Acute hypoxemic respiratory failure, Acute exacerbation of chronic obstructive airways disease, Congestive heart failure, Tobacco dependence Condition: Stable Coding Level of Care Code ED Proposal Manager for Britany Gonzalez
[2024-07-19] MEDS: methylPREDNISolone sod succ 125 mg/2 mL INJ IVP (14:56)
[2024-07-19 15:00] LABS: ABG PCO2 52.5 mmHg (35-45); ABG PH Result 7.39 (7.35-7.45); Alveolar-Arterial Oxygen Gradi 3.3 mmHg (5-10); Base Excess ABG 5.6 mmol/L (-2.0-2.0); Blood Gas Allen Test Pos; Blood Gas Operator Identificat WALCI; Blood Gas Sample Site Radial, left; Blood Gas Sample Type Arterial; Carboxyhemoglobin 6.8 %THgb (0.4-20.1); HCO3 ABG 32.1 mmol/L (22-26); HGB O2 Sat 83.7 % (95-100); Ionized Calcium Level - ABG 1.1 mmol/L (1.1-1.4); Methemoglobin 0.9 % (0.4-1.5); Oxygen Device NC; Oxygen Saturation ABG 90.8; PO2 ABG 60.5 mmHg (80.0-100.0)
[2024-07-19 15:02] LABS: Basophils # 0.1 10^3/uL (0.0-0.1); Basophils % 0.8 %; Eosinophils % 0.5 %; Hematocrit 46.5 % (37-53); Lymphocytes # 1.6 10^3/uL (0.8-4.8); Lymphocytes % 22.4 %; Mean Corpuscular HGB Conc 32.5 g/dL (30-55); Mean Corpuscular Hemoglobin 28.5 pg (27-33); Mean Corpuscular Volume 87.7 fl (82-101); Mean Platelet Volume 8.6 fL (7.4-10.4); Monocytes # 0.7 10^3/uL (0.2-0.9); Monocytes % 9.4 %; Neutrophils # 4.85 10^3/uL (1.8-7.7); Neutrophils % 66.5 %; Nucleated Red Blood Cells % 0 %; Platelet Count 155 10^3/cmm (157-399); White Blood Count 7.31 10^3/uL (3.29-11.43)
[2024-07-19] MEDS: ipratropium-albuterol 3 mL Neb INHALATION ×2 (15:04→19:26)
[2024-07-19] MEDS: albuterol 2.5 mg/3 mL Neb INHALATION (15:04)
[2024-07-19 15:26] LABS: Alanine Aminotransferase 9 U/L (0-41); Albumin Level 3.9 g/dL (3.5-5.2); Alkaline Phosphatase 137 U/L (40-130); Anion Gap 11.3 (5-19); Aspartate Amino Transferase 11 U/L (0-40); Blood Urea Nitrogen 9 mg/dL (8-23); C Reactive Protein 28.1 mg/L (0.0-4.9); Calcium 8.6 mg/dL (8.5-10.5); Carbon Dioxide 32 mmol/L (22-29); Chloride 97 mmol/L (98-107); Creatinine Clr Calc Pharmacy 91.6493; Globulin 3.4 g/dL (1.3-4.6); Glomerular Filtration Rate 83.9 mL/min (90-130); Glucose 127 mg/dL (65-115); NT Pro B Type Natriuretic Pept 1060 pg/mL (0-125); Osmolality Calculated 284 mOsm/kg (285-295); Potassium 3.3 mmol/L (3.5-5.1); Sodium 137 mmol/L (136-145); Total Bilirubin 0.9 mg/dL (0.15-1.2); Total Protein 7.3 g/dL (6.6-8.7)
[2024-07-19] MEDS: FUROsemide 10 mg/mL SDV 10mL 60 MG IVP (16:18)
[2024-07-19] MEDS: doxycycline 100 MG in sodium chloride 0.9% (plus) 100 ML IV (16:18)
[2024-07-19 16:24] LABS: Covid PCR NEGATIVE (Negative); Influenza A NEGATIVE (Negative); Influenza B NEGATIVE (Negative); Respiratory Syncytial Virus Ce NEGATIVE (Negative)
--- NOTE | 2024-07-19 16:24 | CTR_ITS ---
PROCEDURE INFORMATION: Exam: CTA Chest With Contrast Exam date and time: 07/19/2024 4:33 PM Age: 69 years old Clinical indication: Other: Hypoxemia; Prior surgery; Surgery date: 6+ months; Surgery type: Coronary artery stent; Additional info: Hypoxemia, tachycardia TECHNIQUE: Imaging protocol: Computed tomographic angiography of the chest with contrast. Exam focused on the arteries. 3D rendering (Not supervised by radiologist): MIP and/or 3D reconstructed images were created by the technologist. Radiation optimization: All CT scans at this facility use at least one of these dose optimization techniques: automated exposure control; mA and/or kV adjustment per patient size (includes targeted exams where dose is matched to clinical indication); or iterative reconstruction. Contrast material: OMNI 350; Contrast volume: 80 ml; Contrast route: INTRAVENOUS (IV); COMPARISON: CT chest hellenpel w/*[id number] 11/11/2023 12:25 PM RADIATION DOSE METRICS: Total DLP (mGy-cm): 450 FINDINGS: Tubes, catheters and devices: Right IJ Port-A-Cath terminates in the lower SVC. Pulmonary arteries: Dilated main pulmonary artery measures 3.6 cm in caliber. Aorta: Atherosclerotic aortic calcifications, including along the aortic valve plane. The aorta is nonaneurysmal. Lungs: Similar moderate emphysematous changes. Scattered benign calcified granulomas again seen within bilateral lungs. Previously treated neoplasm in the left upper lobe along the fissure appears similar to prior. However, there is increasing surrounding ground-glass opacification as well as multiple ill-defined nodules, including a 1.2 cm nodule on series 4, image 21. A few additional scattered ill-defined nodules are seen in the left upper lung. Multiple small consolidative and nodular opacities as well as ground-glass opacities are seen within bilateral lower lobes. New 1 cm right upper lobe nodule with spiculated margins on series 4, image 31. Pleural spaces: Unremarkable. No pneumothorax. No pleural effusion. Heart: Unremarkable. No cardiomegaly. No pericardial effusion. Coronary arteries: Multivessel coronary artery calcifications. Lymph nodes: Calcified mediastinal and bilateral hilar lymph nodes. Slightly increased size of the mildly enlarged 1.1 cm subcarinal lymph node. Diaphragm: Small sliding hiatal hernia. Small sliding hiatal hernia. Liver: Calcified hepatic and splenic granulomas. Status post cholecystectomy. Similar bilateral adrenal thickening. Bones/joints: Redemonstrated old compression fracture at T7 status post vertebral augmentation. Degenerative changes throughout the thoracic spine. Diffuse osseous demineralization. Soft tissues: Unremarkable. CT/CT angio chest PE protcl [id number] IMPRESSION: 1. No evidence of pulmonary embolism. 2. New 1 cm nodule in the right upper lobe with spiculated margins is concerning for neoplasm. Recommend PET-CT and/or tissue sampling for further assessment. 3. Multiple small nodular, consolidative, and ground-glass opacities in the left upper and bilateral lower lobes, likely due in part to an atypical infectious/inflammatory process. Additional sites of neoplasm not excluded. Correlate with clinical findings. Attention on follow-up imaging also recommended. 4. Mildly enlarged subcarinal lymph node. Metastasis not excluded. COMMENTS: The presence of pulmonary emphysema on CT is an independent risk factor for lung cancer. In the absence of a history or active diagnosis of lung cancer, it is recommended that this patient with emphysema be evaluated for enrollment in a low dose CT lung cancer screening program.
[2024-07-19] MEDS: iohexol 350 mg/mL 500 mL Btl (per mL) IV (16:45)
--- NOTE | 2024-07-19 17:05 | P.HP_ITS ---
Providers/Chief Complaint 2 Primary Care Provider: Viv Mcgarry, IRAIDAC Chief Complaint: sob History of Present Illness Oleg Garvey is a 69 year old male with past medical history of CAD, hypertension, non-small cell lung cancer postchemotherapy currently on immunotherapy with pembrolizumab, type 2 diabetes mellitus, CAD, recent COVID within last 3 weeks not on home oxygen, former smoker with 2 packs of cigarettes over the last 50 years who presented to the ER with difficulty in breathing and shortness of breath ongoing for last few weeks got worsened last night. After the patient he had difficulty in breathing mostly on exertion which has been ongoing for the last few weeks with his saturations at home sometimes dropping below 90. As per him the symptoms got worse last night and so he presented to the ER today. In the ER he was found to have saturation down to 70s for which she was placed on 4 L of oxygen supplementation. Patient has also been complaining of dizziness on and off at home for last few months. He has also noticed swelling in his bilateral feet which has remained stable over last few months. He denies any chest pain, nausea, vomiting, headache, abdominal pain, diarrhea, sick contacts. He has never been on oxygen at home before but has been told recently that he probably will need oxygen but was never tested by his primary care's office. In the ER patient was found to be in COPD exacerbation for which she was given a DuoNeb treatment, given Solu-Medrol 125 mg along with 60 mg of IV Lasix and 100 mg of IV doxycycline. Examination patient is sitting comfortably at edge of the bed, saturating more than 92% on 4 L of oxygen supplementation, having slight difficulty in breathing on long conversation, blood pressure of 110 systolic with a heart rate of 76 bpm. Review of Systems 2 General: Reports: 10 or more systems reviewed and unremarkable except in HPI and below Const: Denies: fever(s), chills, body aches, change in appetite, change in weight, malaise, night sweats, diaphoresis, change in sleep pattern, daytime sleepiness or snoring Eyes: Denies: change in vision, blurry vision, photophobia, eye discomfort or eye discharge ENMT: Denies: throat pain, enlarged tonsils, hoarseness, mouth pain, oral sores, dry mouth, tinnitus, nasal congestion or post nasal drip Card: Denies: chest pain, palpitations, irregular heart rhythm, edema, swelling of feet/ankles, lightheadedness, syncope, pre-syncope, dyspnea on exertion, orthopnea, leg pain with exertion or acrocyanosis Resp: Denies: dyspnea, productive cough, non-productive cough, wheezing, stridor, pain on inspiration, change in phlegm color, hemoptysis or chest congestion GI: Denies: abdominal pain, nausea, vomiting, hematemesis, coffee ground emesis, dysphagia, heartburn, diarrhea, constipation, bloating, GI cramping, change in bowel habits, pain on defecation, hematochezia or melena : Denies: flank pain, difficulty urinating, dysuria, urinary frequency, urinary urgency, urinary hesitancy, urinary dribbling, difficulty starting urination, change in urine stream, nocturia or hematuria Musc: Denies: neck pain, back pain, extremity pain, joint pain, joint swelling, joint redness, joint stiffness or limited range of motion Neuro: Denies: headache(s), numbness in extremities, weakness in extremities, sensory changes, lack of coordination, difficulty walking, frequent falls, dizziness, vertigo, confusion, Slurred speech present, difficulty communicating thoughts or seizure-like activity Psych: Denies: anxiety, depression, mood swings, panic attacks, hopelessness or irritability Endo: Denies: polyuria, polydipsia, tired all the time, cold intolerance, excessive sweating, flushing or heat intolerance Rick/Lymph: Denies: easy bruising or easy bleeding All/Imm: Denies: tongue swelling, facial swelling or acute wheezing Medications/Allergies Home Medications Medication Instructions Recorded Confirmed Last Taken Type blood-glucose meter (OneTouch #1 ea 01/25/23 07/19/24 Unknown Rx Ultra2 Meter kit) lancets (OneTouch UltraSoft #100 ea 01/25/23 07/19/24 Unknown Rx Lancets) aspirin 81 mg tablet,delayed 81 mg PO BID 03/18/23 07/19/24 04/03/23 History release lidocaine-prilocaine 2.5 %-2.5 % 1 applic topical DIRECTED #30 05/20/23 07/19/24 Unknown Rx topical cream grams sennosides 8.6 mg-docusate sodium 1 tab-cap PO DAILY PRN Constipation 10/04/23 07/19/24 Unknown History 50 mg tablet (Senna Plus) blood sugar diagnostic (OneTouch #50 ea 12/27/23 07/19/24 Unknown Rx Ultra Test strips) Foot Drop AFO #1 ea 04/04/24 07/19/24 Unknown Rx ondansetron HCl 8 mg tablet See Rx Instructions .Route 06/12/24 07/19/24 Unknown Rx .COMPLEX #90 tabs furosemide 40 mg tablet See Rx Instructions .Route 06/14/24 07/19/24 Unknown Rx .COMPLEX #30 tabs oxycodone 20 mg tablet 20 mg PO QID PRN pain 30 days #120 06/27/24 07/19/24 Unknown Rx tabs citalopram 10 mg tablet See Rx Instructions .Route 07/10/24 07/19/24 Unknown Rx .COMPLEX #30 tabs gabapentin 300 mg capsule 300 mg PO TID #90 caps 07/10/24 07/19/24 Unknown Rx atorvastatin 40 mg tablet (Lipitor) 40 mg PO DAILY #30 tabs 07/12/24 07/19/24 Unknown Rx metoprolol tartrate 25 mg tablet 25 mg PO BID #60 tabs 07/12/24 07/19/24 Unknown Rx Allergies Allergy/AdvReac Type Severity Reaction Status Date / Time amoxicillin Allergy Severe ALGY-Rash Verified 07/19/24 13:15 Penicillins Allergy Severe ALGY-Rash Verified 07/19/24 13:15 bupropion [From Wellbutrin] AdvReac Severe ADR-Itching Verified 07/19/24 13:15 PFSH Acute 2 PFSH: Medical History (Updated 07/19/24 @ 17:13 by Adam Lockett MD) Diastolic heart failure Moderate aortic stenosis Acquired left foot drop Peripheral neuropathy Traumatic compression fracture of L5 vertebra Antineoplastic chemotherapy induced anemia History of radiation therapy Compression fx, thoracic spine Non-small cell lung cancer Hypertension Diabetes mellitus with hyperglycemia, without long-term current use of insulin Personal history of nicotine dependence Coronary artery disease COPD (chronic obstructive pulmonary disease) with emphysema Surgical History History of kyphoplasty (04/09/23) T7 kyphoplasty with biopsy of the T7 vertebral body and with radiofrequency ablation of T7 tumor Port-A-Cath in place Right chest wall 05/18/23 History of coronary artery stent placement History of cholecystectomy History of appendectomy Family History Other CAD (coronary artery disease) Cancer Hyperlipidemia Hypertension Denies family history of Bleeding disorder Social History (Updated 07/19/24 @ 17:16 by Adam Lockett MD) Smoking and tobacco/nicotine status: former use of tobacco/nicotine Second hand smoke exposure: Yes Alcohol intake: current Alcohol intake frequency: holidays/special occasions only Substance/Drug Use: unknown Adopted: No Caregiver/support person: No Lives independently: Yes Household members: none Housing: House Marital status: Number of children: 1 Number of grandchildren: 3 service: No Current occupational status: retired Do you think of yourself as: Straight/Heterosexual Current gender identity: Male Vitals/I&O/Wt Last Vital Signs Temp 98.3 F 07/19/24 14:24 Pulse 76 07/19/24 16:28 Resp 67 H 07/19/24 14:56 BP 98/56 07/19/24 16:28 Pulse Ox 92 07/19/24 16:28 O2 Del Method Room Air 07/19/24 16:28 O2 Flow Rate 4 07/19/24 14:56 Weight last 48 hrs Weight 89.811 kg Physical Exam 2 Narrative: General: No acute distress, pleasant, AO x3, NC oxygen supplementation, currently dehydrated HEENT: PERRLA, pupils bilaterally equal and reactive Chest: Bilateral bronchial breath sounds all over lung jason with occasional rhonchi and coarse crackles CVS: S1-S2 regular, ejection systolic murmur at aortic region 2/6, no tachycardia, no gallops, no rubs Abdomen: Soft, nontender, no organomegaly, bowel sounds present, morbidly obese Neuro: No focal deficits, no facial deformity, AO x3, power 5/5 in all limbs Data 07/19/24 14:49 07/19/24 14:49 Micro: Microbiology 07/19/24 14:52 Blood Culture - Preliminary Blood SPECIMEN COLLECTED 07/19/24 14:49 Blood Culture - Preliminary Blood SPECIMEN COLLECTED A&P Assessment and plan (1) Acute hypoxemic respiratory failure: Most likely in setting of COPD exacerbation in setting of recent COVID-19 within the last 3 weeks. Oxygen supplementation keeping saturation over 90%. DuoNeb every 6 hour, Pulmicort twice daily. Solu-Medrol 40 mg IV every 6 hour. Will try to wean within next 24 to 48 hours. Low concern for pneumonia for now. Check blood culture, sputum culture, urinalysis, urine Legionella, bacterial antigen. For now start patient on IV antibiotic for community-acquired pneumonia with IV ceftriaxone 1 g daily and azithromycin 500 mg orally. Aggressive pulmonary toilet with incentive spirometry and flutter valve. (2) Acute exacerbation of chronic obstructive airways disease: (3) Moderate aortic stenosis: Last echocardiogram from April 2024 showed an EF of 60 to 65%, grade 1 diastolic dysfunction with moderate aortic valve stenosis with peak gradient across the valve of 30 mmHg and valve area of 1.2. (4) Diastolic heart failure: Currently patient looks euvolemic to slightly dehydrated. Appreciate proBNP. Received 60 mg of IV Lasix in the ER. For now hold off on any further Lasix. Strict input output charting, daily weights. (5) Malignant neoplasm of upper lobe, left bronchus or lung: Follows up with oncology as an outpatient. Currently on immunotherapy with pembrolizumab. Post chemo and radiation therapy. (6) Chemotherapy induced nausea and vomiting: Plan Type 2 diabetes mellitus: Past history. Currently does not seem to be any hypoglycemic medication. Check A1c. Hold off on insulin for now. History of CAD: Denies any active chest pain. Check A1c, lipid panel. Continue with baby aspirin, atorvastatin 40 mg oral daily for now. Appreciate last echocardiogram from April 2024 without regional wall motion abnormality. CODE STATUS: Discussed today with the patient. Full code. Cardiac carb consistent diet Protonix OPD prophylaxis Lovenox for DVT prophylaxis. Attestations 2 Medical Necessity Statement*: Admission for than 2 midnights for hypoxic respiratory failure in setting of COPD exacerbation in a patient with history of non-small cell lung cancer post chemoradiation therapy on immunotherapy, moderate aortic stenosis with diastolic dysfunction of the heart. Diagnoses Acute hypoxemic respiratory failure J96.01 Acute exacerbation of chronic obstructive airways disease J44.1 Moderate aortic stenosis I35.0 Diastolic heart failure I50.30 Malignant neoplasm of upper lobe, left bronchus or lung C34.12 Chemotherapy induced nausea and vomiting R11.2; T45.1X5A
[2024-07-19 18:11] LABS: Iron 25 ug/dL (59-158); Percent Saturation 9.2 % (20-50); Total Iron Binding Capacity 271 mcg/dl; Unsaturated Iron Binding 246 ug/dL (112-347)
[2024-07-19 18:15] LABS: Alcohol Level < 10 mg/dL (0-10)
[2024-07-19 18:25] LABS: Procalcitonin 0.05 ng/mL (0-0.5); Vitamin B12 598 pg/mL (232-1245)
[2024-07-19] MEDS: enoxaparin 40 mg/0.4 mL Syringe SUBCUT (19:09)
[2024-07-19] MEDS: budesonide 0.5 mg/2 mL Neb INHALATION (19:26)
[2024-07-19 19:34] LABS: Lactate Dehydrogenase 178 U/L (135-225)
[2024-07-19 19:44] LABS: Add Urine Microscopic? NO
--- NOTE | 2024-07-19 20:00 | PC.NURSE ---
Patient educated that sputum sample is needed. Specimen cup provided to patient.
[2024-07-19 20:01] LABS: Bilirubin Urine Negative (Negative); Blood Urine Negative (Negative); Glucose Urine UA Negative (Normal); Ketones Urine Negative (Negative); Leukocyte Esterase Urine Negative (Negative); Nitrate Urine Negative (Negative); Protein Urine Negative (Negative); Specific Gravity, Urine 1.011 (1.005-1.030); Urine Appearance Clear (CLEAR); Urine Color Yellow (Yellow)
[2024-07-19 20:02] LABS: Add Urine Culture? No; Charge for UA Resulting for Rev
[2024-07-19] MEDS: metoprolol tartrate 25 mg Tablet PO (20:20)
[2024-07-19] MEDS: methylPREDNISolone sod succ 40 mg/mL INJ IVP (20:20)
[2024-07-19] MEDS: aspirin 81 mg EC Tablet PO (20:20)
[2024-07-19] MEDS: cefTRIAXone 1,000 mg SDV 1000 MG IVP (20:20)
[2024-07-19] MEDS: gabapentin 300 mg Capsule PO (20:20)
[2024-07-19] MEDS: azithromycin 250 mg Tablet 500 MG PO (20:20)
[2024-07-19] MEDS: atorvastatin 40 mg Tablet PO (20:46)
[2024-07-20] VITALS (13 sets, daily range): BP systolic 115–143; BP diastolic 65–75; PULSE 64–88; RESP 15–19; TEMP 36.7–36.9; O2SAT 89–96
[2024-07-20] MEDS: ipratropium-albuterol 3 mL Neb INHALATION ×4 (02:58→20:53)
[2024-07-20] MEDS: methylPREDNISolone sod succ 40 mg/mL INJ IVP ×4 (02:59→20:39)
[2024-07-20 05:00] LABS: Basophils % 0.1 %; Hematocrit 46.4 % (37-53); Lymphocytes % 13.3 %; Mean Corpuscular HGB Conc 33.2 g/dL (30-55); Mean Corpuscular Hemoglobin 29.2 pg (27-33); Mean Corpuscular Volume 87.9 fl (82-101); Mean Platelet Volume 8.6 fL (7.4-10.4); Monocytes # 0.3 10^3/uL (0.2-0.9); Monocytes % 3.2 %; Neutrophils # 6.46 10^3/uL (1.8-7.7); Neutrophils % 83.1 %; Nucleated Red Blood Cells % 0 %; Platelet Count 162 10^3/cmm (157-399); Red Blood Count 5.28 10^6/uL (3.85-5.65); Red Cell Distribution Width 14.1 % (12.1-15.1); White Blood Count 7.77 10^3/uL (3.29-11.43)
[2024-07-20 05:19] LABS: Chol HDL Ratio 3.06 mg/dL (1.0-5.00); Cholesterol 101 mg/dL (0-200); HDL Cholesterol 33 mg/dL (60-100); LDL Cholesterol Calculated 56 mg/dL (50-129); Triglycerides 61 mg/dL (0-150)
[2024-07-20 05:20] LABS: Alanine Aminotransferase 9 U/L (0-41); Albumin Level 3.8 g/dL (3.5-5.2); Alkaline Phosphatase 129 U/L (40-130); Anion Gap 13.1 (5-19); Aspartate Amino Transferase 10 U/L (0-40); Blood Urea Nitrogen 12 mg/dL (8-23); Calcium 8.7 mg/dL (8.5-10.5); Carbon Dioxide 33 mmol/L (22-29); Chloride 96 mmol/L (98-107); Creatinine Clr Calc Pharmacy 91.6493; Globulin 3.6 g/dL (1.3-4.6); Glomerular Filtration Rate 83.9 mL/min (90-130); Glucose 137 mg/dL (65-115); Magnesium 2.2 mg/dL (1.7-2.3); Osmolality Calculated 290 mOsm/kg (285-295); Potassium 3.1 mmol/L (3.5-5.1); Sodium 139 mmol/L (136-145); Total Bilirubin 0.5 mg/dL (0.15-1.2); Total Protein 7.4 g/dL (6.6-8.7)
[2024-07-20 05:25] LABS: Procalcitonin 0.05 ng/mL (0-0.5)
[2024-07-20 05:28] LABS: Estmated Average Glucose 117; Hemoglobin A1C 5.7 % (4.0-6.0)
[2024-07-20] MEDS: budesonide 0.5 mg/2 mL Neb INHALATION ×2 (08:55→20:53)
[2024-07-20] MEDS: aspirin 81 mg EC Tablet PO ×2 (09:28→17:44)
[2024-07-20] MEDS: pantoprazole DR 40 mg Tablet PO (09:28)
[2024-07-20] MEDS: citalopram 20 mg Tablet 10 MG PO (09:28)
[2024-07-20] MEDS: metoprolol tartrate 25 mg Tablet PO ×2 (09:28→17:44)
[2024-07-20] MEDS: azithromycin 250 mg Tablet 500 MG PO (09:28)
[2024-07-20] MEDS: gabapentin 300 mg Capsule PO ×3 (09:29→20:39)
[2024-07-20] MEDS: sodium chloride 0.9% 1,000 ML 75 ML IV (10:40)
[2024-07-20] MEDS: potassium chloride ER 20 mEq Tablet 40 MEQ PO (10:40)
--- NOTE | 2024-07-20 12:53 | P.PN_ITS ---
Subjective 2 Subjective: No acute events overnight. Seen with family at bedside. Patient continues to remain on 4 L of oxygen supplementation. States he is feeling better. Does not have air hunger anymore. States Bartolotta misstep without a headache. Denies any nausea. Denies any dizziness. Vitals/I&O/Wt Last Vital Signs Temp 98.4 F 07/20/24 11:23 Pulse 68 07/20/24 11:23 Resp 16 07/20/24 11:23 BP 119/69 07/20/24 11:23 Pulse Ox 90 07/20/24 11:23 O2 Del Method Nasal Cannula 07/20/24 11:23 O2 Flow Rate 4 07/20/24 11:23 07/19/24 07/20/24 07/20/24 22:59 06:59 14:59 Intake Total 100 / 100 350 / 450 358 / 358 Output Total 500 / 500 500 / 1000 Balance -400 / -400 -150 / -550 358 / 358 Weight last 48 hrs Weight 86.772 kg Weight 86.772 kg Weight 89.811 kg Weight 89.811 kg Physical Exam 2 Narrative: General: No acute distress, pleasant, AO x3, NC oxygen supplementation, currently dehydrated HEENT: PERRLA, pupils bilaterally equal and reactive Chest: Bilateral bronchial breath sounds all over lung jason with occasional rhonchi and coarse crackles CVS: S1-S2 regular, ejection systolic murmur at aortic region 2/6, no tachycardia, no gallops, no rubs Abdomen: Soft, nontender, no organomegaly, bowel sounds present, morbidly obese Neuro: No focal deficits, no facial deformity, AO x3, power 5/5 in all limbs Data 07/20/24 04:37 07/20/24 04:37 Micro: Microbiology 07/19/24 17:59 Legionella Urinary Antigen - Final Unknown Source 07/19/24 14:52 Blood Culture - Preliminary Blood SPECIMEN COLLECTED 07/19/24 14:49 Blood Culture - Preliminary Blood SPECIMEN COLLECTED A&P Assessment and plan (1) Acute hypoxemic respiratory failure: Most likely in setting of COPD exacerbation in setting of recent COVID-19 within the last 3 weeks. Oxygen supplementation keeping saturation over 90%. DuoNeb every 6 hour, Pulmicort twice daily. Solu-Medrol 40 mg IV every 6 hour. Will try to wean within next 24 to 48 hours. Low concern for pneumonia for now. Check blood culture, sputum culture, urinalysis, urine Legionella, bacterial antigen. For now start patient on IV antibiotic for community-acquired pneumonia with IV ceftriaxone 1 g daily and azithromycin 500 mg orally. Aggressive pulmonary toilet with incentive spirometry and flutter valve. (2) Acute exacerbation of chronic obstructive airways disease: (3) Moderate aortic stenosis: Last echocardiogram from April 2024 showed an EF of 60 to 65%, grade 1 diastolic dysfunction with moderate aortic valve stenosis with peak gradient across the valve of 30 mmHg and valve area of 1.2. (4) Diastolic heart failure: Currently patient looks euvolemic to slightly dehydrated. Appreciate proBNP. Received 60 mg of IV Lasix in the ER. For now hold off on any further Lasix. Strict input output charting, daily weights. (5) Malignant neoplasm of upper lobe, left bronchus or lung: Follows up with oncology as an outpatient. Currently on immunotherapy with pembrolizumab. Post chemo and radiation therapy. (6) Chemotherapy induced nausea and vomiting: Plan Type 2 diabetes mellitus: Past history. Currently does not seem to be any hypoglycemic medication. A1c normal for now. For now we will hold off on insulin sliding scale. History of CAD: Denies any active chest pain. Appreciate A1c, lipid panel. Continue with baby aspirin, atorvastatin 40 mg oral daily for now. Appreciate last echocardiogram from April 2024 without regional wall motion abnormality. CODE STATUS: Discussed today with the patient. Full code. Cardiac carb consistent diet Protonix OPD prophylaxis Lovenox for DVT prophylaxis. Plan for the day: Continue with current nebulization treatment and IV steroids. Will plan to wean in the next 24 hours. Patient was clinically dehydrated. Will plan to start on slow IV fluid resuscitation with normal saline 75 cc/h for 1 bag. Watch for fluid overload. Appreciate A1c. No concerns ordered for diabetes mellitus. Has remained chest pain-free. Appreciate CT chest. No concerns for pulmonary embolism but concerns for fluid removal nodules in the lungs. Will need to follow-up with oncology as an outpatient to rule out enhancing neoplasm. Care discussed in detail with patient and family at bedside. All the questions were answered. Discharge plan: Patient will most likely need home O2 evaluation and oxygen on discharge. Case management alerted. Will also send a DME for nebulizations. Attestations 2 Medical Necessity Statement*: Requires further hospitalization for management of hypoxic respiratory failure in setting of COPD exacerbation in a patient on treatment for neoplasm of left lung Diagnoses Acute hypoxemic respiratory failure J96.01 Acute exacerbation of chronic obstructive airways disease J44.1 Moderate aortic stenosis I35.0 Diastolic heart failure I50.30 Malignant neoplasm of upper lobe, left bronchus or lung C34.12 Chemotherapy induced nausea and vomiting R11.2; T45.1X5A
[2024-07-20] MEDS: enoxaparin 40 mg/0.4 mL Syringe SUBCUT (18:48)
[2024-07-20] MEDS: atorvastatin 40 mg Tablet PO (20:39)
[2024-07-20] MEDS: cefTRIAXone 1,000 mg SDV 1000 MG IVP (20:39)
[2024-07-21] VITALS (16 sets, daily range): BP systolic 104–139; BP diastolic 60–76; PULSE 64–88; RESP 15–20; TEMP 36.6–37; O2SAT 88–94
[2024-07-21] MEDS: methylPREDNISolone sod succ 40 mg/mL INJ IVP ×3 (02:22→18:38)
[2024-07-21] MEDS: ipratropium-albuterol 3 mL Neb INHALATION ×4 (03:11→20:20)
--- NOTE | 2024-07-21 06:07 | PC.NURSE ---
Dr. Mckoen notified that patient has been anxious and restless and unable to sleep throughout the night. Asked for something to help patient relax. Asked if it could be a side effect from the IV steroids. Dr. Mckeon stated that she will notify the patient's morning team.
--- NOTE | 2024-07-21 06:19 | PC.NURSE ---
Family voices concern that patient has not been eating enough. Patient states that he does not have an appetite. I asked patient if there is anything in particular that we could get him for breakfast that he would like to eat. Patient states he wants calles and toast with jelly. Patient is on cardiac consistent carb diet, however kitchen has been notified of patient's request.
[2024-07-21 07:18] LABS: Glucose Point of Care 160 mg/dL (70-110)
[2024-07-21] MEDS: budesonide 0.5 mg/2 mL Neb INHALATION ×2 (08:39→20:20)
[2024-07-21] MEDS: gabapentin 300 mg Capsule PO ×3 (09:24→20:32)
[2024-07-21] MEDS: aspirin 81 mg EC Tablet PO ×2 (09:25→18:38)
[2024-07-21] MEDS: pantoprazole DR 40 mg Tablet PO (09:25)
[2024-07-21] MEDS: metoprolol tartrate 25 mg Tablet PO ×2 (09:27→18:38)
[2024-07-21] MEDS: azithromycin 250 mg Tablet 500 MG PO (09:31)
[2024-07-21] MEDS: citalopram 20 mg Tablet 10 MG PO (09:32)
[2024-07-21 11:35] LABS: Glucose Point of Care 174 mg/dL (70-110)
--- NOTE | 2024-07-21 12:31 | P.PN_ITS ---
Subjective 2 Subjective: No acute vents overnight. Patient denies any nausea, vomiting, headache. States he feels better but complaining of feeling jittery and having weird dreams while trying to sleep being on steroids. He is requesting if steroids can be tapered. Denies any nausea, vomiting, headache. Saturating in high 80s to low 90s on 2 to 3 L of oxygen supplementation. Vitals/I&O/Wt Last Vital Signs Temp 98.1 F 07/21/24 11:10 Pulse 74 07/21/24 11:10 Resp 17 07/21/24 11:10 BP 118/60 07/21/24 11:10 Pulse Ox 88 L 07/21/24 11:10 O2 Del Method Nasal Cannula 07/21/24 11:10 O2 Flow Rate 2 07/21/24 11:10 07/20/24 07/21/24 07/21/24 22:59 06:59 14:59 Intake Total 480 / 838 1120 / 1958 340 / 340 Balance 480 / 838 1120 / 1958 340 / 340 Weight last 48 hrs Weight 86.908 kg Weight 86.772 kg Weight 86.772 kg Weight 89.811 kg Weight 89.811 kg Physical Exam 2 Narrative: General: No acute distress, pleasant, AO x3, NC oxygen supplementation, currently dehydrated HEENT: PERRLA, pupils bilaterally equal and reactive Chest: Bilateral bronchial breath sounds all over lung jason with occasional rhonchi and coarse crackles CVS: S1-S2 regular, ejection systolic murmur at aortic region 2/6, no tachycardia, no gallops, no rubs Abdomen: Soft, nontender, no organomegaly, bowel sounds present, morbidly obese Neuro: No focal deficits, no facial deformity, AO x3, power 5/5 in all limbs Data 07/20/24 04:37 07/20/24 04:37 Micro: Microbiology 07/19/24 14:52 Blood Culture - Preliminary Blood NEGATIVE TO DATE 07/19/24 14:49 Blood Culture - Preliminary Blood NEGATIVE TO DATE 07/20/24 09:08 Gram Stain - Final Sputum - Expectorated Sputum A&P Assessment and plan (1) Acute hypoxemic respiratory failure: Most likely in setting of COPD exacerbation in setting of recent COVID-19 within the last 3 weeks. Oxygen supplementation keeping saturation over 90%. DuoNeb every 6 hour, Pulmicort twice daily. Solu-Medrol 40 mg IV every 6 hour. Will try to wean within next 24 to 48 hours. Low concern for pneumonia for now. Check blood culture, sputum culture, urinalysis, urine Legionella, bacterial antigen. For now start patient on IV antibiotic for community-acquired pneumonia with IV ceftriaxone 1 g daily and azithromycin 500 mg orally. Aggressive pulmonary toilet with incentive spirometry and flutter valve. (2) Acute exacerbation of chronic obstructive airways disease: (3) Moderate aortic stenosis: Last echocardiogram from April 2024 showed an EF of 60 to 65%, grade 1 diastolic dysfunction with moderate aortic valve stenosis with peak gradient across the valve of 30 mmHg and valve area of 1.2. (4) Diastolic heart failure: Currently patient looks euvolemic to slightly dehydrated. Appreciate proBNP. Received 60 mg of IV Lasix in the ER. For now hold off on any further Lasix. Strict input output charting, daily weights. (5) Malignant neoplasm of upper lobe, left bronchus or lung: Follows up with oncology as an outpatient. Currently on immunotherapy with pembrolizumab. Post chemo and radiation therapy. (6) Chemotherapy induced nausea and vomiting: Plan Type 2 diabetes mellitus: Past history. Currently does not seem to be any hypoglycemic medication. A1c normal for now. For now we will hold off on insulin sliding scale. History of CAD: Denies any active chest pain. Appreciate A1c, lipid panel. Continue with baby aspirin, atorvastatin 40 mg oral daily for now. Appreciate last echocardiogram from April 2024 without regional wall motion abnormality. CODE STATUS: Discussed today with the patient. Full code. Cardiac carb consistent diet Protonix OPD prophylaxis Lovenox for DVT prophylaxis. Plan for the day: Symptoms seems to be resolving. Wean Solu-Medrol 40 mg IV every 12 hourly. Other supplementation keeping saturation more than 88%. Continue with nebulization treatment. Follow-up sputum culture. Add trazodone 50 mg nightly as needed for insomnia. Discharge plan: Patient will most likely need home O2 evaluation and oxygen on discharge. Case management alerted. Will also send a DME for nebulizations. Attestations 2 Medical Necessity Statement*: Requires further hospitalization for management of acute hypoxic respiratory failure in setting of COPD exacerbation in a patient with baseline non-small cell lung cancer. Diagnoses Acute hypoxemic respiratory failure J96.01 Acute exacerbation of chronic obstructive airways disease J44.1 Moderate aortic stenosis I35.0 Diastolic heart failure I50.30 Malignant neoplasm of upper lobe, left bronchus or lung C34.12 Chemotherapy induced nausea and vomiting R11.2; T45.1X5A
[2024-07-21 12:42] LABS: Alanine Aminotransferase 10 U/L (0-41); Albumin Level 3.6 g/dL (3.5-5.2); Alkaline Phosphatase 104 U/L (40-130); Anion Gap 12.3 (5-19); Aspartate Amino Transferase 13 U/L (0-40); Blood Urea Nitrogen 15 mg/dL (8-23); Calcium 8.7 mg/dL (8.5-10.5); Carbon Dioxide 29 mmol/L (22-29); Chloride 101 mmol/L (98-107); Glomerular Filtration Rate 96.1 mL/min (90-130); Glucose 172 mg/dL (65-115); Osmolality Calculated 293 mOsm/kg (285-295); Potassium 3.3 mmol/L (3.5-5.1); Sodium 139 mmol/L (136-145); Total Bilirubin 0.4 mg/dL (0.15-1.2); Total Protein 6.6 g/dL (6.6-8.7)
[2024-07-21 17:27] LABS: Glucose Point of Care 154 mg/dL (70-110)
[2024-07-21] MEDS: enoxaparin 40 mg/0.4 mL Syringe SUBCUT (18:38)
[2024-07-21] MEDS: cefTRIAXone 1,000 mg SDV 1000 MG IVP (20:32)
[2024-07-21] MEDS: atorvastatin 40 mg Tablet PO (20:32)
[2024-07-21] MEDS: trazodone 50 mg Tablet PO (20:32)
[2024-07-21 22:12] LABS: Glucose Point of Care 217 mg/dL (70-110)
[2024-07-22] VITALS (9 sets, daily range): BP systolic 111–135; BP diastolic 64–81; PULSE 69–79; RESP 15–18; TEMP 36.6–36.8; O2SAT 88–94
[2024-07-22] MEDS: ipratropium-albuterol 3 mL Neb INHALATION ×2 (02:59→08:51)
[2024-07-22 03:39] LABS: Basophils % 0.1 %; Hematocrit 42.2 % (37-53); Lymphocytes # 1.1 10^3/uL (0.8-4.8); Lymphocytes % 12.4 %; Mean Corpuscular HGB Conc 32.5 g/dL (30-55); Mean Corpuscular Hemoglobin 28.8 pg (27-33); Mean Corpuscular Volume 88.7 fl (82-101); Mean Platelet Volume 9.2 fL (7.4-10.4); Monocytes # 0.5 10^3/uL (0.2-0.9); Monocytes % 5.4 %; Neutrophils # 7.41 10^3/uL (1.8-7.7); Neutrophils % 81.8 %; Nucleated Red Blood Cells % 0 %; Platelet Count 159 10^3/cmm (157-399); Red Blood Count 4.76 10^6/uL (3.85-5.65); Red Cell Distribution Width 14.3 % (12.1-15.1); White Blood Count 9.06 10^3/uL (3.29-11.43)
[2024-07-22 03:59] LABS: Alanine Aminotransferase 11 U/L (0-41); Albumin Level 3.5 g/dL (3.5-5.2); Alkaline Phosphatase 97 U/L (40-130); Anion Gap 12.3 (5-19); Aspartate Amino Transferase 14 U/L (0-40); Blood Urea Nitrogen 15 mg/dL (8-23); Calcium 8.4 mg/dL (8.5-10.5); Carbon Dioxide 30 mmol/L (22-29); Chloride 99 mmol/L (98-107); Globulin 2.9 g/dL (1.3-4.6); Glomerular Filtration Rate 112.1 mL/min (90-130); Glucose 143 mg/dL (65-115); Osmolality Calculated 289 mOsm/kg (285-295); Potassium 3.3 mmol/L (3.5-5.1); Sodium 138 mmol/L (136-145); Total Bilirubin 0.3 mg/dL (0.15-1.2); Total Protein 6.4 g/dL (6.6-8.7)
[2024-07-22 06:56] LABS: Glucose Point of Care 120 mg/dL (70-110)
[2024-07-22] MEDS: budesonide 0.5 mg/2 mL Neb INHALATION (08:50)
[2024-07-22] MEDS: azithromycin 250 mg Tablet 500 MG PO (08:56)
[2024-07-22] MEDS: methylPREDNISolone sod succ 40 mg/mL INJ IVP (08:57)
[2024-07-22] MEDS: metoprolol tartrate 25 mg Tablet PO (08:57)
[2024-07-22] MEDS: aspirin 81 mg EC Tablet PO (08:57)
[2024-07-22] MEDS: gabapentin 300 mg Capsule PO (08:57)
[2024-07-22] MEDS: citalopram 20 mg Tablet 10 MG PO (08:57)
[2024-07-22] MEDS: pantoprazole DR 40 mg Tablet PO (08:57)
[2024-07-22 11:24] LABS: Glucose Point of Care 122 mg/dL (70-110)
--- NOTE | 2024-07-22 11:55 | P.DS_ITS ---
Discharge Providers Date of Admission: 07/19/24 16:24 Date of Discharge: July 22, 2024 Attending Provider at Admission: Adam Lockett MD Attending Provider at Discharge: Adam Lockett MD Primary Care Provider: ROYCE Whitt Diagnoses at Discharge Discharge Diagnosis (1) Acute hypoxemic respiratory failure: Status: Acute (2) Acute exacerbation of chronic obstructive airways disease: Status: Acute (3) Moderate aortic stenosis: Status: Acute (4) Diastolic heart failure: Status: Acute (5) Malignant neoplasm of upper lobe, left bronchus or lung: Status: Chronic (6) Chemotherapy induced nausea and vomiting: Status: Acute Reason for Visit Reason for Visit: sob Hospital Course Hospital Course Oleg Garvey is a 69 year old male with past medical history of CAD, hypertension, non-small cell lung cancer postchemotherapy currently on immunotherapy with pembrolizumab, type 2 diabetes mellitus, CAD, recent COVID within last 3 weeks not on home oxygen, former smoker with 2 packs of cigarettes over the last 50 years who presented to the ER with difficulty in breathing and shortness of breath ongoing for last few weeks got worsened last night. After the patient he had difficulty in breathing mostly on exertion which has been ongoing for the last few weeks with his saturations at home sometimes dropping below 90. As per him the symptoms got worse last night and so he presented to the ER today. In the ER he was found to have saturation down to 70s for which she was placed on 4 L of oxygen supplementation. Patient has also been complaining of dizziness on and off at home for last few months. He has also noticed swelling in his bilateral feet which has remained stable over last few months. He denies any chest pain, nausea, vomiting, headache, abdominal pain, diarrhea, sick contacts. He has never been on oxygen at home before but has been told recently that he probably will need oxygen but was never tested by his primary care's office. Patient was admitted to the hospital further evaluation and management of hypoxic respiratory failure in setting of COPD exacerbation. Respiratory viral panel admission was negative. There were low concerns for bacterial pneumonia. His blood culture during hospitalization remained negative. He continued to improve after oxygen supplementation and has been on 2 to 3 L of oxygen supplementation for last 2 days while steroids are weaned down. He has been discharged in hemodynamically stable condition on oral steroid taper, nebulization treatment along with supplemental oxygen. He is to follow-up with his primary care provider and with his oncologist on set appointment. Physical Exam Narrative: General: No acute distress, pleasant, AO x3, NC oxygen supplementation, currently dehydrated HEENT: PERRLA, pupils bilaterally equal and reactive Chest: Bilateral bronchial breath sounds all over lung jason with occasional rhonchi and coarse crackles CVS: S1-S2 regular, ejection systolic murmur at aortic region 2/6, no tachycardia, no gallops, no rubs Abdomen: Soft, nontender, no organomegaly, bowel sounds present, morbidly obese Neuro: No focal deficits, no facial deformity, AO x3, power 5/5 in all limbs Discharge Data Studies Completed and Pending Completed Studies During Hospitalization Category Date Time Status CT angio chest PE protcl [id number] Stat Cat Scan 07/19/24 16:24 Completed XR chest 1V portable [id number] Stat Exams 07/19/24 14:25 Completed Pending at discharge Category Date Time Status Blood Culture Stat Lab 07/19/24 14:52 Results Fungitell Glucan Assay (Blood) Routine Lab 07/19/24 14:49 Received Sputum Culture and Gram Stain Stat Lab 07/20/24 09:08 Results Radiology Impressions Chest X-Ray 07/19/24 14:25 IMPRESSION: Suspect mild interstitial pulmonary edema. Chest CTA 07/19/24 16:24 IMPRESSION: 1. No evidence of pulmonary embolism. 2. New 1 cm nodule in the right upper lobe with spiculated margins is concerning for neoplasm. Recommend PET-CT and/or tissue sampling for further assessment. 3. Multiple small nodular, consolidative, and ground-glass opacities in the left upper and bilateral lower lobes, likely due in part to an atypical infectious/inflammatory process. Additional sites of neoplasm not excluded. Correlate with clinical findings. Attention on follow-up imaging also recommended. 4. Mildly enlarged subcarinal lymph node. Metastasis not excluded. COMMENTS: The presence of pulmonary emphysema on CT is an independent risk factor for lung cancer. In the absence of a history or active diagnosis of lung cancer, it is recommended that this patient with emphysema be evaluated for enrollment in a low dose CT lung cancer screening program. Laboratory Results WBC 9.06 10^3/uL (3.29-11.43) 07/22/24 02:31 RBC 4.76 10^6/uL (3.85-5.65) 07/22/24 02:31 Hgb 13.70 g/dL (11.27-16.99) 07/22/24 02:31 Hct 42.2 % (37-53) 07/22/24 02:31 MCV 88.7 fl (82-101) 07/22/24 02:31 MCH 28.8 pg (27-33) 07/22/24 02:31 MCHC 32.5 g/dL (30-55) 07/22/24 02:31 RDW 14.3 % (12.1-15.1) 07/22/24 02:31 Plt Count 159 10^3/cmm (157-399) 07/22/24 02:31 MPV 9.2 fL (7.4-10.4) 07/22/24 02:31 Neut % (Auto) 81.8 % 07/22/24 02:31 Lymph % (Auto) 12.4 % 07/22/24 02:31 [place] % (Auto) 5.4 % 07/22/24 02:31 Eos % (Auto) 0.0 % 07/22/24 02:31 Baso % (Auto) 0.1 % 07/22/24 02:31 Neut # (Auto) 7.41 10^3/uL (1.8-7.7) 07/22/24 02:31 Lymph # (Auto) 1.1 10^3/uL (0.8-4.8) 07/22/24 02:31 [place] # (Auto) 0.5 10^3/uL (0.2-0.9) 07/22/24 02:31 Eos # (Auto) 0.0 10^3/uL (0.0-0.8) 07/22/24 02:31 Baso # (Auto) 0.0 10^3/uL (0.0-0.1) 07/22/24 02:31 Nucleated RBC % (auto) 0 % 07/22/24 02:31 Nucleated RBCs # 0.0 /100WBC 07/22/24 02:31 Specimen Type Arterial 07/19/24 14:49 Sample Site Radial, left 07/19/24 14:49 ABG pH 7.39 (7.35-7.45) 07/19/24 14:49 ABG pCO2 52.5 mmHg (35-45) H 07/19/24 14:49 ABG pO2 60.5 mmHg (80.0-100.0) L 07/19/24 14:49 ABG HCO3 32.1 mmol/L (22-26) H 07/19/24 14:49 ABG O2 Saturation 90.8 07/19/24 14:49 ABG Base Excess 5.6 mmol/L (-2.0-2.0) H 07/19/24 14:49 Oswaldo Test Pos 07/19/24 14:49 A-a O2 Gradient 3.3 mmHg (5-10) L 07/19/24 14:49 Hematocrit 46.0 % (42-52) 07/19/24 14:49 Hgb O2 Saturation 83.7 % (95-100) L 07/19/24 14:49 Carboxyhemoglobin 6.8 %THgb (0.4-20.1) 07/19/24 14:49 Methemoglobin 0.9 % (0.4-1.5) 07/19/24 14:49 Total Hemoglobin 15.0 g/dL (14-18) 07/19/24 14:49 Sodium 137.0 mmol/L (131-143) 07/19/24 14:49 Potassium 3.0 mmol/L (3.5-5.0) L 07/19/24 14:49 Glucose 134.0 mg/dL (70-115) H 07/19/24 14:49 Ionized Calcium 1.1 mmol/L (1.1-1.4) 07/19/24 14:49 O2 Delivery Device Nc 07/19/24 14:49 O2 Liters/Min 4.0 % 07/19/24 14:49 Laborer Tree Tapping ID [place] 07/19/24 14:49 Sodium 138 mmol/L (136-145) 07/22/24 02:31 Potassium 3.3 mmol/L (3.5-5.1) L 07/22/24 02:31 Chloride 99 mmol/L (98-107) 07/22/24 02:31 Carbon Dioxide 30 mmol/L (22-29) H 07/22/24 02:31 Anion Gap 12.3 (5-19) 07/22/24 02:31 BUN 15 mg/dL (8-23) 07/22/24 02:31 Creatinine 0.7 mg/dL (0.7-1.2) 07/22/24 02:31 GFR Calculation 112.1 mL/min (90-130) 07/22/24 02:31 Glucose 143 mg/dL (65-115) H 07/22/24 02:31 POC Glucose 122 mg/dL (70-110) H 07/22/24 11:05 Estimat Average Glucose 117 07/20/24 04:37 Hemoglobin A1c 5.7 % (4.0-6.0) 07/20/24 04:37 Calculated Osmolality 289 mOsm/kg (285-295) 07/22/24 02:31 Lactic Acid 2.0 mmol/L (0.5-2.2) 07/19/24 14:49 Calcium 8.4 mg/dL (8.5-10.5) L 07/22/24 02:31 Phosphorus 3.0 mg/dL (2.5-4.5) 07/20/24 04:37 Magnesium 2.2 mg/dL (1.7-2.3) 07/20/24 04:37 Iron 25 ug/dL (59-158) L 07/19/24 14:49 TIBC 271 mcg/dl 07/19/24 14:49 % Saturation 9.2 % (20-50) L 07/19/24 14:49 Unsat Iron Binding 246 ug/dL (112-347) 07/19/24 14:49 Total Bilirubin 0.3 mg/dL (0.15-1.2) 07/22/24 02:31 AST 14 U/L (0-40) 07/22/24 02:31 ALT 11 U/L (0-41) 07/22/24 02:31 Alkaline Phosphatase 97 U/L (40-130) 07/22/24 02:31 Lactate Dehydrogenase 178 U/L (135-225) 07/19/24 14:49 C-Reactive Protein 28.1 mg/L (0.0-4.9) H 07/19/24 14:49 NT-Pro-B Natriuret Pep 1060 pg/mL (0-125) H 07/19/24 14:49 Total Protein 6.4 g/dL (6.6-8.7) L 07/22/24 02:31 Albumin 3.5 g/dL (3.5-5.2) 07/22/24 02:31 Globulin 2.9 g/dL (1.3-4.6) 07/22/24 02:31 Triglycerides 61 mg/dL (0-150) 07/20/24 04:37 Cholesterol 101 mg/dL (0-200) 07/20/24 04:37 LDL Cholesterol, Calc 56 mg/dL (50-129) 07/20/24 04:37 HDL Cholesterol 33 mg/dL (60-100) L 07/20/24 04:37 LDL/HDL Ratio 1.70 RATIO (0.00-3.22) 07/20/24 04:37 Cholesterol/HDL Ratio 3.06 mg/dL (1.0-5.00) 07/20/24 04:37 Vitamin B12 598 pg/mL (232-1245) 07/19/24 14:49 Folate 9.0 ng/mL (4.5-32.2) 07/20/24 04:37 Procalcitonin 0.05 ng/mL (0-0.5) 07/20/24 04:37 Urine Color Yellow (Yellow) 07/19/24 17:59 Urine Appearance Clear (CLEAR) 07/19/24 17:59 Urine pH 6.0 (5-7) 07/19/24 17:59 Ur Specific [place] 1.011 (1.005-1.030) 07/19/24 17:59 Urine Protein Negative (Negative) 07/19/24 17:59 Urine Glucose (UA) Negative (Normal) 07/19/24 17:59 Urine Ketones Negative (Negative) 07/19/24 17:59 Urine Blood Negative (Negative) 07/19/24 17:59 Urine Nitrate Negative (Negative) 07/19/24 17:59 Urine Bilirubin Negative (Negative) 07/19/24 17:59 Urine Urobilinogen 1.0 mg/dL (Negative) 07/19/24 17:59 Ur Leukocyte Esterase Negative (Negative) 07/19/24 17:59 Amorphous Sediment Not Reportable 07/19/24 17:59 Ethyl Alcohol < 10 mg/dL (0-10) 07/19/24 14:49 Coronavirus (PCR) Negative (Negative) 07/19/24 15:27 Influenza A (PCR) Negative (Negative) 07/19/24 15:27 Influenza Type B (PCR) Negative (Negative) 07/19/24 15:27 RSV (PCR) Negative (Negative) 07/19/24 15:27 Vitals Last Vital Signs Temp 98.1 F 07/22/24 11:37 Pulse 69 07/22/24 11:37 Resp 18 07/22/24 11:37 BP 135/81 07/22/24 11:37 Pulse Ox 88 L 07/22/24 11:46 O2 Del Method Nasal Cannula 07/22/24 11:37 O2 Flow Rate 2 07/22/24 11:37 Discharge Plan Discharge Patient Disposition: Home Condition: Stable Prescriptions: New budesonide 0.5 mg/2 mL Suspension For Nebulization 0.5 mg inhalation BID.RESPIRATORY 14 Days Qty: 56 0RF levofloxacin 750 mg tablet 750 mg PO Q24H 7 Days Qty: 7 0RF pantoprazole 40 mg Tablet,Delayed Release (Dr/Ec) 40 mg PO DAILY Qty: 14 0RF ipratropium-albuterol 0.5 mg-3 mg(2.5 mg base)/3 mL Solution For Nebulization 3 ml inhalation Q6H.RESP Qty: 180 0RF Rx Instructions: 4 times a day for next 2 weeks followed by 2 times a day prednisone 10 mg tablet See Taper PO DIRECTED Qty: 42 0RF Taper: predniSONE 60-10 60 mg Daily for 2 Days and 0 Hour 50 mg Daily for 2 Days and 0 Hour 40 mg Daily for 2 Days and 0 Hour 30 mg Daily for 2 Days and 0 Hour 20 mg Daily for 2 Days and 0 Hour 10 mg Daily for 2 Days and 0 Hour Rx Instructions: see taper instructions Continued aspirin 81 mg tablet,delayed release (DR/EC) 81 mg PO BID (DME) blood-glucose meter [OneTouch Ultra2 Meter] Kit See Rx Instructions .Route Qty: 1 0RF Rx Instructions: As directed (DME) lancets [OneTouch UltraSoft Lancets] Misc See Rx Instructions .Route Qty: 100 2RF Rx Instructions: one day ondansetron HCl 8 mg tablet See Rx Instructions .ROUTE .COMPLEX Qty: 90 3RF Dose Instruction: TAKE ONE TABLET BY MOUTH THREE TIMES DAILY NEEDED FOR NAUSEA AND VOMITING Rx Instructions: TAKE ONE TABLET BY MOUTH THREE TIMES DAILY NEEDED FOR NAUSEA AND VOMITING sennosides-docusate sodium [Senna Plus] 8.6-50 mg tablet 1 tab-cap PO DAILY PRN (Reason: Constipation) Patient Comments: as needed metoprolol tartrate 25 mg tablet 25 mg PO BID Qty: 60 5RF atorvastatin [Lipitor] 40 mg tablet 40 mg PO DAILY Qty: 30 5RF lidocaine-prilocaine 2.5-2.5 % cream 1 applic topical DIRECTED Qty: 30 3RF Rx Instructions: place quarter sized amount 30 min prior to port access, cover with plastic wrap (DME) OneTouch Ultra Test Strip See Rx Instructions .Route Qty: 50 5RF Rx Instructions: one daily (DME) Foot Drop AFO See Rx Instructions .Route .MEDSUPPLY Qty: 1 0RF Rx Instructions: As directed oxycodone 20 mg tablet 20 mg PO QID PRN (Reason: pain) 30 Days Qty: 120 0RF citalopram 10 mg tablet See Rx Instructions .ROUTE .COMPLEX Qty: 30 3RF Dose Instruction: TAKE ONE TABLET BY MOUTH DAILY Rx Instructions: TAKE ONE TABLET BY MOUTH DAILY gabapentin 300 mg capsule 300 mg PO TID Qty: 90 3RF Changed furosemide 40 mg tablet 40 mg PO DAILY PRN (Reason: shortness of breath) Qty: 30 2RF Dose Instruction: TAKE ONE TABLET BY MOUTH EVERY MORNING FOR EDEMA Discharge Orders: Discharge Order (Routine); Ordered 07/22/24 Ordered By: Adam Lockett Other Ambulatory Orders: DME: Nebulizer with Neb Kit (Order) Location: None Selected Ordered By: Adam Lockett DME: Oxygen (Order) Location: None Selected Ordered By: Adam Lockett Referrals: Viv Mcgarry, [employer] [employer] [Primary Care Provider] - (We have notified your physician's clinic of the need for a follow-up appointment to be scheduled. If you have not heard from them within the next 2 business days, please call them directly. ) Discharge Diet: Regular Discharge Activity: Resume usual activity and Increase activity as tolerated Patient Instructions: Opioid Safety, Pain Management Activity Restrictions/Additional Instructions: Steroid taper as directed. Take Lasix only as needed now. Pulmicort as nebulization which is twice daily for next 2 weeks. DuoNeb's nebulization which you should do 4 times a day for next 2 weeks followed by 3 times a day. Follow-up with a primary care provider within next 1 week. Titrate oxygen supplementation keeping saturation over 88%. Discharge Attestations Time Spent in Discharge Care*: greater than 30 min Specific Discharge Activities: educating patient, educating and/or supporting family/caregiver, discussing with pcp/other providers, discussing with manager of case management/social workers/dc planners, documenting/other paperwork and evaluating patient/reviewing data Time Spent in Smoking Cessation: more than 10 minutes Status at Discharge: Cognitive status at discharge: cognitively intact , Behavioral status at discharge: cooperative , Functional status at discharge: independent ambulation , Overall status at discharge: patient is back to baseline Quality Metrics Clinical Quality Measures [ No reported AMI, CVA or VTE this stay] Coding Level of Care Code 34494 Total time (in minutes) for Discharge: 60 Diagnoses Acute hypoxemic respiratory failure J96.01 Acute exacerbation of chronic obstructive airways disease J44.1 Moderate aortic stenosis I35.0 Diastolic heart failure I50.30 Malignant neoplasm of upper lobe, left bronchus or lung C34.12 Chemotherapy induced nausea and vomiting R11.2; T45.1X5A
[2024-07-24 15:35] LABS: Fungitell 1-3-B Glucan Assay 35 pg/ml; Interpretation Negative (Negative)
== END 2024-07-22 13:45 | disposition home or self-care (01) | DRG 189 ==
LOC: ER 16:46 → MEDSURG 17:31
PROVIDERS: Emergency Medicine; Admitting Provider Student in an Organized Health Care Education/Training Program; Emergency Provider Emergency Medicine; PCP Nurse Practitioner; Visit Provider Student in an Organized Health Care Education/Training Program
DX: J96.01 Acute respiratory failure with hypoxia (principal); J44.1 Chronic obstructive pulmonary disease with (acute) exacerbation; I50.30 Unspecified diastolic (congestive) heart failure; C34.12 Malignant neoplasm of upper lobe, left bronchus or lung; I50.32 Chronic diastolic (congestive) heart failure; I35.0 Nonrheumatic aortic (valve) stenosis; R11.2 Nausea with vomiting, unspecified; T45.1X5A Adverse effect of antineoplastic and immunosuppressive drugs, initial encounter; E11.42 Type 2 diabetes mellitus with diabetic polyneuropathy; I25.10 Atherosclerotic heart disease of native coronary artery without angina pectoris; I11.0 Hypertensive heart disease with heart failure; E86.0 Dehydration; U09.9 Post COVID-19 condition, unspecified; Z87.891 Personal history of nicotine dependence; Z79.899 Other long term (current) drug therapy; Z79.82 Long term (current) use of aspirin; Z88.0 Allergy status to penicillin; Z88.8 Allergy status to other drugs, medicaments and biological substances
CPT/HCPCS: 0241U; 36415; 36416; 36600; 71045; 71275; 80051; 80053; 80061; 80307; 81003; 82330; 82607; 82746; 82805; 82962; 83036; 83540; 83550; 83605; 83615; 83735; 83880; 84100; 84145; 85025; 86140; 86403; 87040; 87070; 87205; 87400; 87426; 87449; 93005; 94640; 94664; 94760; 96365; 96372; 96375; 99285; J0696; J1650; J1940; J2919; J3490; J7030; J7613; J7626; Q0144

== ENCOUNTER 2024-08-07 08:30 | Oncology outpatient (recurring) (ONCR) | payer MEDICARE, SELFPAY ==
[2024-08-07 08:56] LABS: Basophils % 0.3 %; Eosinophils # 0.2 10^3/uL (0.0-0.8); Eosinophils % 2.6 %; Hematocrit 42.8 % (37-53); Lymphocytes # 1.4 10^3/uL (0.8-4.8); Lymphocytes % 15.5 %; Mean Corpuscular HGB Conc 31.5 g/dL (30-55); Mean Corpuscular Hemoglobin 27.6 pg (27-33); Mean Corpuscular Volume 87.5 fl (82-101); Mean Platelet Volume 9.3 fL (7.4-10.4); Monocytes # 0.7 10^3/uL (0.2-0.9); Monocytes % 7.5 %; Neutrophils # 6.81 10^3/uL (1.8-7.7); Neutrophils % 73.6 %; Nucleated Red Blood Cells % 0 %; Platelet Count 120 10^3/cmm (157-399); Red Blood Count 4.89 10^6/uL (3.85-5.65); Red Cell Distribution Width 14.6 % (12.1-15.1); White Blood Count 9.25 10^3/uL (3.29-11.43)
[2024-08-07 09:11] LABS: Estmated Average Glucose 128; Hemoglobin A1C 6.1 % (4.0-6.0)
[2024-08-07 09:32] LABS: 25 Hydroxy Vitamin D 11 ng/mL (30-100); Alanine Aminotransferase 18 U/L (0-41); Albumin Level 3.6 g/dL (3.5-5.2); Alkaline Phosphatase 120 U/L (40-130); Aspartate Amino Transferase 13 U/L (0-40); Blood Urea Nitrogen 13 mg/dL (8-23); Calcium 8.2 mg/dL (8.5-10.5); Carbon Dioxide 30 mmol/L (22-29); Chloride 97 mmol/L (98-107); Chol HDL Ratio 3.07 mg/dL (1.0-5.00); Cholesterol 135 mg/dL (0-200); Globulin 2.7 g/dL (1.3-4.6); Glomerular Filtration Rate 83.9 mL/min (90-130); Glucose 177 mg/dL (65-115); HDL Cholesterol 44 mg/dL (60-100); LDL Cholesterol Calculated 74 mg/dL (50-129); Lactate Dehydrogenase 186 U/L (135-225); Magnesium 1.9 mg/dL (1.7-2.3); Osmolality Calculated 282 mOsm/kg (285-295); Sodium 134 mmol/L (136-145); Thyroid Stimulating Hormone 3.05 uIU/mL (0.27-4.20); Total Bilirubin 0.5 mg/dL (0.15-1.2); Total Protein 6.3 g/dL (6.6-8.7); Triglycerides 86 mg/dL (0-150); VLDL Cholestrol Calculation 17 mg/dL (0-30)
[2024-08-07] MEDS: zoledronic acid (Zometa) 4 MG/100 ML PIGGYBACK 400 MG IV (10:55)
[2024-08-07] MEDS: pembrolizumab 400 MG in sodium chloride 0.9% 250 ML 532 MG IV (11:21)
[2024-08-07 12:02] VITALS: BP 101/65; PULSE 75; RESP 18; TEMP 36.1; O2SAT 96
== END 2024-08-07 23:59 | disposition home or self-care (01) ==
PROVIDERS: PCP Nurse Practitioner; Visit Provider Internal Medicine Hematology & Oncology
DX: Z53.9 Procedure and treatment not carried out, unspecified reason; C79.51 Secondary malignant neoplasm of bone; F41.8 Other specified anxiety disorders; Z92.3 Personal history of irradiation; Z79.899 Other long term (current) drug therapy; E55.9 Vitamin D deficiency, unspecified; E11.65 Type 2 diabetes mellitus with hyperglycemia; Z51.12 Encounter for antineoplastic immunotherapy; C34.12 Malignant neoplasm of upper lobe, left bronchus or lung
CPT/HCPCS: 80053; 80061; 82306; 83036; 83615; 83735; 84443; 85025; 96365; 96413; 99214; A4222; J3489; J7050; J9271

== ENCOUNTER 2024-08-29 18:09 | Observation (INO) | payer MEDICARE, SELFPAY ==
[2024-08-29] VITALS (13 sets, daily range): BP systolic 115–132; BP diastolic 56–79; PULSE 65–91; RESP 17–22; TEMP 36.5–36.6; O2SAT 87–93; BMI 27.1
--- NOTE | 2024-08-29 18:17 | XRR_ITS ---
PROCEDURE INFORMATION: Exam: XR Chest Exam date and time: 08/29/2024 6:54 PM Age: 69 years old Clinical indication: Shortness of breath; Prior surgery; Surgery date: 6+ months; Surgery type: 13 stents; Additional info: SOB TECHNIQUE: Imaging protocol: Radiologic exam of the chest. Views: 1 view. COMPARISON: CT angio chest PE protcl [id number] 07/19/2024 4:33 PM FINDINGS: Tubes, catheters and devices: Right IJ Port-A-Cath terminates in the lower SVC. Lungs: A few scattered small nodular opacities are seen throughout the lungs. No focal consolidation. Pleural spaces: Unremarkable. No pleural effusion. No pneumothorax. Heart/Mediastinum: Unremarkable. No cardiomegaly. Vasculature: Atherosclerotic aortic calcifications. Bones/joints: Unremarkable. XR/XR chest 1V portable [id number] IMPRESSION: A few scattered small nodular opacities may represent atypical infection/inflammation. Recommend imaging follow-up after clinical treatment to evaluate for resolution.
--- NOTE | 2024-08-29 18:23 | ECG_ITS ---
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 Measurements Intervals [place] Rate: 75 P: 65 NV: 156 QRS: 143 QRSD: 141 T: 35 QT: 428 QTc: 479 Interpretive Statements SINUS RHYTHM WITH OCCASIONAL VENTRICULAR PREMATURE COMPLEXES INDETERMINATE AXIS RIGHT BUNDLE BRANCH BLOCK [120+ ms QRS DURATION, UPRIGHT V1, 40+ ms S IN I/aVL/V4/V5/V6] LEFT POSTERIOR FASCICULAR BLOCK [QRS AXIS > 109, INFERIOR Q] Compared to ECG 07/19/2024 14:38:53 Ventricular premature complex(es) now present Indeterminate axis now present Left posterior fascicular block now present Electronically Signed On 08-31-2024 21:11:50 MICROCOMPUTER TECHNICIAN by Jose G Chowdary M.D. [email or web address]
--- NOTE | 2024-08-29 18:46 | ED_ITS ---
HPI - SOB/Dyspnea 2 General: Chief Complaint: Shortness of Breath/Dyspnea Stated Complaint: SOB Time Seen by Provider: 08/29/24 18:41 History of Present Illness: HPI Narrative: 69-year-old man with a history of COPD a nd chronic hypoxemic respiratory failure on 2 L nasal cannula at all times who presents emergency room with shortness of breath and hypoxemia. He says a couple of days ago he had sat outside for 3 to 4 hours and was exposed to pollen and dust and since then he has been having worsening shortness of breath. His oxygen saturations are in the 80s on his 2 L nasal cannula. He has had increased cough. His breathing treatments helped some but not much. No chest pain. No fevers. No altered mental status. No focal motor deficits. No abdominal pain. No nausea or vomiting. Related Data Home Medications Medication Instructions Recorded Confirmed sennosides 8.6 mg-docusate sodium 1 tab-cap PO DAILY PRN Constipation 10/04/23 08/07/24 50 mg tablet (Senna Plus) Previous Rx's Medication Instructions Recorded blood-glucose meter (OneTouch #1 ea 01/25/23 Ultra2 Meter kit) lancets (OneTouch UltraSoft #100 ea 01/25/23 Lancets) lidocaine-prilocaine 2.5 %-2.5 % 1 applic topical DIRECTED #30 05/20/23 topical cream grams blood sugar diagnostic (OneTouch #50 ea 12/27/23 Ultra Test strips) Foot Drop AFO #1 ea 04/04/24 ondansetron HCl 8 mg tablet See Rx Instructions .Route 06/12/24 .COMPLEX #90 tabs gabapentin 300 mg capsule 300 mg PO TID #90 caps 07/10/24 atorvastatin 40 mg tablet (Lipitor) 40 mg PO DAILY #30 tabs 07/12/24 metoprolol tartrate 25 mg tablet 25 mg PO BID #60 tabs 07/12/24 furosemide 40 mg tablet 40 mg PO DAILY PRN shortness of 07/22/24 breath #30 tabs ipratropium 0.5 mg-albuterol 3 mg 3 ml inhalation Q6H.RESP #180 mL 07/22/24 (2.5 mg base)/3 mL nebulization soln pantoprazole 40 mg tablet,delayed 40 mg PO DAILY #14 tabs 07/22/24 release prednisone 10 mg tablet See Taper PO DIRECTED #42 tabs 07/22/24 zolpidem 10 mg tablet (Ambien) 10 mg PO .at bedtime #30 tabs 07/27/24 budesonide 0.5 mg/2 mL suspension 0.5 mg (2 mL) inhalation 07/28/24 for nebulization BID.RESPIRATORY #120 mL citalopram 20 mg tablet 20 mg PO DAILY #30 tabs 07/28/24 oxycodone 20 mg tablet 20 mg PO QID PRN pain 30 days #120 08/02/24 tabs formoterol fumarate 20 mcg/2 mL 2 ml inhalation Q12H #120 mL 08/04/24 solution for nebulization (Perforomist) ergocalciferol (vitamin D2) 1,250 1,250 mcg PO .weekly #4 caps 08/07/24 mcg (50,000 unit) capsule Allergies Allergy/AdvReac Type Severity Reaction Status Date / Time amoxicillin Allergy Severe ALGY-Rash Verified 08/07/24 08:36 Penicillins Allergy Severe ALGY-Rash Verified 08/07/24 08:36 bupropion [From Wellbutrin] AdvReac Severe ADR-Itching Verified 08/07/24 08:36 Review of Systems 2 Narrative: Constitutional symptoms: Negative except as documented in HPI. Skin symptoms: Negative except as documented in HPI. Eye symptoms: Negative except as documented in HPI. ENMT symptoms: Negative except as documented in HPI. Respiratory symptoms: Negative except as documented in HPI. Cardiovascular symptoms: Negative except as documented in HPI. Gastrointestinal symptoms: Negative except as documented in HPI. Genitourinary symptoms: Negative except as documented in HPI. Musculoskeletal symptoms: Negative except as documented in HPI. Neurologic symptoms: Negative except as documented in HPI. Psychiatric symptoms: Negative except as documented in HPI. Endocrine symptoms: Negative except as documented in HPI. PFSH ED 2 PFSH: Medical History Diastolic heart failure Moderate aortic stenosis Acquired left foot drop Peripheral neuropathy Traumatic compression fracture of L5 vertebra Antineoplastic chemotherapy induced anemia History of radiation therapy Compression fx, thoracic spine Non-small cell lung cancer Hypertension Diabetes mellitus with hyperglycemia, without long-term current use of insulin Personal history of nicotine dependence Coronary artery disease COPD (chronic obstructive pulmonary disease) with emphysema Surgical History History of kyphoplasty (04/09/23) T7 kyphoplasty with biopsy of the T7 vertebral body and with radiofrequency ablation of T7 tumor Port-A-Cath in place Right chest wall 05/18/23 History of coronary artery stent placement History of cholecystectomy History of appendectomy Family History Other CAD (coronary artery disease) Cancer Hyperlipidemia Hypertension Denies family history of Bleeding disorder Social History Smoking and tobacco/nicotine status: former use of tobacco/nicotine Second hand smoke exposure: Yes Alcohol intake: current Alcohol intake frequency: holidays/special occasions only Substance/Drug Use: unknown Adopted: No Caregiver/support person: No Lives independently: Yes Household members: none Housing: House Marital status: Number of children: 1 Number of grandchildren: 3 service: No Current occupational status: retired Do you think of yourself as: Straight/Heterosexual Current gender identity: Male Physical Exam 2 Narrative: EXAM NARRATIVE: General: Alert, no acute distress. Skin: Warm, dry. Head: Normocephalic, atraumatic. Neck: Supple, trachea midline. Eye: Extraocular movements are intact. Ears, nose, mouth and throat: Oral mucosa moist. Cardiovascular: Regular rate and rhythm, Normal peripheral perfusion. Respiratory: coarse, scattered wheeze, mild increased wob. tachypnea, breath sounds are equal, Symmetrical chest wall expansion. Gastrointestinal: Soft, Nontender, Non distended, Normal bowel sounds. Musculoskeletal: Normal ROM, no deformity. Neurological: Alert and oriented to person, place, time, and situation, No focal neurological deficit observed. Psychiatric: Cooperative, appropriate mood & affect. Course 2 Vital Signs: Vital signs: Vital Signs Temperature 97.8 F 08/29/24 18:28 Pulse Rate 70 08/29/24 20:34 Respiratory Rate 20 H 08/29/24 20:34 Blood Pressure 121/78 08/29/24 18:28 Pulse Oximetry 93 08/29/24 20:34 Oxygen Delivery Me thod Nasal Cannula 08/29/24 20:34 Oxygen Flow Rate 4.5 08/29/24 20:34 MDM - SOB/Dyspnea Medical Decision Making Differential diagnosis for patient with shortness of breath includes but is not limited to and based on the above HPI, review of systems and physical exam: Pneumonia. Bronchitis. Asthma or COPD with acute exacerbation. Acute coronary syndrome / [place]. Pulmonary embolism. Anxiety. Congestive heart failure. Viral infections including influenza and Covid-19. Atrial fibrillation. Anxiety. Pleural effusion. Pneumothorax. Orders placed to evaluate differential diagnosis based on the above differential, HPI and physical exam EKG: Time 182. Rate 75. Normal sinus rhythm, No ST-T changes, PVCs, right bundle branch block, left posterior fascicular block, this was reviewed and interpreted by myself the ER physician at 1826 Chest x-ray: Hyperexpanded/flattened diaphragms. Emphysematous changes. Borderline cardiomegaly. Right-sided port in place. No obvious focal infiltrates. This was reviewed and interpreted by myself the emergency room physician. I also reviewed the radiology report. Lab Review: Laboratory results were reviewed and interpreted by myself the emergency room physician. No leukocytosis. No anemia. No renal failure. AB.4 with an O2 sat of 89% on 4 L nasal cannula. Patient does have increased oxygen requirement I reviewed the patient's medical record. Reexamination: Patient continues to have some mild increased work of breathing and significant wheeze. Breathing treatments have not helped much. Admission for increased work of breathing and increased oxygen requirement Consultation: I spoke with Dr. Lopez who agrees to admission. Patient has increased work of breathing, increased wheeze and increased oxygen requirements. Assessment and plan: COPD with acute exacerbation Acute on chronic hypoxemic respiratory failure ?Patient is requiring 3 to 4 L nasal cannula at rest with oxygen sats between 88 and 92 on this increased oxygen. Has some increased work of breathing. Increased wheeze. ? IV Solu-Medrol, 2 updrafts and IV doxycycline in the emergency room -I discussed the patient with the hospitalist on-call who is admitting the patient. - Discussed findings and plan with patient. Answered any questions. - All laboratory values were reviewed and interpreted personally by myself, the ER physician - All imaging was reviewed and interpreted personally by myself, the ER physician. - Evaluation and treatment of this problem were appropriate in the emergency setting Lab Data 08/29/24 19:00 08/29/24 19:00 Labs/Radiology: Radiology Impressions Chest X-Ray 08/29/24 18:17 IMPRESSION: A few scattered small nodular opacities may represent atypical infection/inflammation. Recommend imaging follow-up after clinical treatment to evaluate for resolution. Laboratory Results WBC 8.06 10^3/uL (3.29-11.43) 08/29/24 19:00 RBC 5.05 10^6/uL (3.85-5.65) 08/29/24 19:00 Hgb 14.00 g/dL (11.27-16.99) 08/29/24 19:00 Hct 43.6 % (37-53) 08/29/24 19:00 MCV 86.3 fl (82-101) 08/29/24 19:00 MCH 27.7 pg (27-33) 08/29/24 19:00 MCHC 32.1 g/dL (30-55) 08/29/24 19:00 RDW 15.0 % (12.1-15.1) 08/29/24 19:00 Plt Count 148 10^3/cmm (157-399) L 08/29/24 19:00 MPV 8.7 fL (7.4-10.4) 08/29/24 19:00 Neut % (Auto) 67.0 % 08/29/24 19:00 Lymph % (Auto) 21.0 % 08/29/24 19:00 Cloud % (Auto) 7.8 % 08/29/24 19:00 Eos % (Auto) 3.2 % 08/29/24 19:00 Baso % (Auto) 0.6 % 08/29/24 19:00 Neut # (Auto) 5.40 10^3/uL (1.8-7.7) 08/29/24 19:00 Lymph # (Auto) 1.7 10^3/uL (0.8-4.8) 08/29/24 19:00 Cloud # (Auto) 0.6 10^3/uL (0.2-0.9) 08/29/24 19:00 Eos # (Auto) 0.3 10^3/uL (0.0-0.8) 08/29/24 19:00 Baso # (Auto) 0.1 10^3/uL (0.0-0.1) 08/29/24 19:00 Nucleated RBC % (auto) 0 % 08/29/24 19:00 Nucleated RBCs # 0.0 /100WBC 08/29/24 19:00 Specimen Type Arterial 08/29/24 18:46 Sample Site Radial, left 08/29/24 18:46 ABG pH 7.40 (7.35-7.45) 08/29/24 18:46 ABG pCO2 48.2 mmHg (35-45) H 08/29/24 18:46 ABG pO2 64.5 mmHg (80.0-100.0) L 08/29/24 18:46 ABG PO2/FiO2 Ratio 201 08/29/24 18:46 ABG HCO3 30.1 mmol/L (22-26) H 08/29/24 18:46 ABG O2 Saturation 91.4 08/29/24 18:46 ABG Base Excess 4.3 mmol/L (-2.0-2.0) H 08/29/24 18:46 Oswaldo Test Pos 08/29/24 18:46 A-a O2 Gradient 13.6 mmHg (5-10) H 08/29/24 18:46 Hematocrit 43.3 % (42-52) 08/29/24 18:46 Hgb O2 Saturation 89.5 % (95-100) L 08/29/24 18:46 Carboxyhemoglobin 1.1 %THgb (0.4-20.1) 08/29/24 18:46 Methemoglobin 1.0 % (0.4-1.5) 08/29/24 18:46 Total Hemoglobin 14.1 g/dL (14-18) 08/29/24 18:46 Sodium 138.0 mmol/L (131-143) 08/29/24 18:46 Potassium 3.7 mmol/L (3.5-5.0) 08/29/24 18:46 Glucose 101.0 mg/dL (70-115) 08/29/24 18:46 Ionized Calcium 1.2 mmol/L (1.1-1.4) 08/29/24 18:46 O2 Delivery Device Nc 08/29/24 18:46 O2 Liters/Min 3.0 % 08/29/24 18:46 FiO2 32.0 % 08/29/24 18:46 Veneer Jointer Operator ID Cak 08/29/24 18:46 Sodium 135 mmol/L (136-145) L 08/29/24 19:00 Potassium 3.9 mmol/L (3.5-5.1) 08/29/24 19:00 Chloride 98 mmol/L (98-107) 08/29/24 19:00 Carbon Dioxide 29 mmol/L (22-29) 08/29/24 19:00 Anion Gap 11.9 (5-19) 08/29/24 19:00 BUN 7 mg/dL (8-23) L 08/29/24 19:00 Creatinine 0.8 mg/dL (0.7-1.2) 08/29/24 19:00 GFR Calculation 96.1 mL/min (90-130) 08/29/24 19:00 Glucose 99 mg/dL (65-115) 08/29/24 19:00 Calculated Osmolality 278 mOsm/kg (285-295) L 08/29/24 19:00 Calcium 8.7 mg/dL (8.5-10.5) 08/29/24 19:00 Total Bilirubin 0.6 mg/dL (0.15-1.2) 08/29/24 19:00 AST 12 U/L (0-40) 08/29/24 19:00 ALT 8 U/L (0-41) 08/29/24 19:00 Alkaline Phosphatase 119 U/L (40-130) 08/29/24 19:00 NT-Pro-B Natriuret Pep 411 pg/mL (0-125) H 08/29/24 19:00 Total Protein 6.4 g/dL (6.6-8.7) L 08/29/24 19:00 Albumin 3.9 g/dL (3.5-5.2) 08/29/24 19:00 Globulin 2.5 g/dL (1.3-4.6) 08/29/24 19:00 All radiology interpretation(s) finalized by discharge Discharge Plan Discharge Patient Disposition: Admitted As Inpatient Clinical Impression: COPD with acute exacerbation, Acute on chronic hypoxic respiratory failure Condition: Stable Coding Level of Care Code ED Radio Journalist for Britany Gonzalez
[2024-08-29 18:57] LABS: ABG PCO2 48.2 mmHg (35-45); Alveolar-Arterial Oxygen Gradi 13.6 mmHg (5-10); Arterial Blood Gas Hematocrit 43.3 % (42-52); Base Excess ABG 4.3 mmol/L (-2.0-2.0); Blood Gas Allen Test Pos; Blood Gas Operator Identificat CAK; Blood Gas Sample Site Radial, left; Blood Gas Sample Type Arterial; Carboxyhemoglobin 1.1 %THgb (0.4-20.1); HCO3 ABG 30.1 mmol/L (22-26); HGB O2 Sat 89.5 % (95-100); Ionized Calcium Level - ABG 1.2 mmol/L (1.1-1.4); Oxygen Device NC; Oxygen Saturation ABG 91.4; PO2 ABG 64.5 mmHg (80.0-100.0); PO2 FiO2 Ratio Arterial Blood 201; Potassium Level - ABG 3.7 mmol/L (3.5-5.0); Total Hemoglobin 14.1 g/dL (14-18)
[2024-08-29 19:07] LABS: Basophils # 0.1 10^3/uL (0.0-0.1); Basophils % 0.6 %; Eosinophils # 0.3 10^3/uL (0.0-0.8); Eosinophils % 3.2 %; Hematocrit 43.6 % (37-53); Lymphocytes # 1.7 10^3/uL (0.8-4.8); Mean Corpuscular HGB Conc 32.1 g/dL (30-55); Mean Corpuscular Hemoglobin 27.7 pg (27-33); Mean Corpuscular Volume 86.3 fl (82-101); Mean Platelet Volume 8.7 fL (7.4-10.4); Monocytes # 0.6 10^3/uL (0.2-0.9); Monocytes % 7.8 %; Nucleated Red Blood Cells % 0 %; Platelet Count 148 10^3/cmm (157-399); Red Blood Count 5.05 10^6/uL (3.85-5.65); White Blood Count 8.06 10^3/uL (3.29-11.43)
[2024-08-29 19:33] LABS: Alanine Aminotransferase 8 U/L (0-41); Albumin Level 3.9 g/dL (3.5-5.2); Alkaline Phosphatase 119 U/L (40-130); Anion Gap 11.9 (5-19); Aspartate Amino Transferase 12 U/L (0-40); Blood Urea Nitrogen 7 mg/dL (8-23); Calcium 8.7 mg/dL (8.5-10.5); Carbon Dioxide 29 mmol/L (22-29); Chloride 98 mmol/L (98-107); Globulin 2.5 g/dL (1.3-4.6); Glomerular Filtration Rate 96.1 mL/min (90-130); Glucose 99 mg/dL (65-115); NT Pro B Type Natriuretic Pept 411 pg/mL (0-125); Osmolality Calculated 278 mOsm/kg (285-295); Potassium 3.9 mmol/L (3.5-5.1); Sodium 135 mmol/L (136-145); Total Bilirubin 0.6 mg/dL (0.15-1.2); Total Protein 6.4 g/dL (6.6-8.7)
[2024-08-29] MEDS: methylPREDNISolone sod succ 125 mg/2 mL INJ IVP (19:42)
--- NOTE | 2024-08-29 20:31 | P.HP_ITS ---
Providers/Chief Complaint 2 Primary Care Provider: ROYCE Whitt Chief Complaint: SOB History of Present Illness Oleg Garvey is a 69 year old male history of lung cancer, recent CT scan showed spiculated nodule, oncology wants another PET scan, patient is still smoking, uses 3 L of oxygen at baseline presented with shortness of breath worsening. Patient is stating that his symptoms worsened in last 24 to 48 hours, he has not smoked a cigarette in the last 3 days. He has not noticed any diarrhea chest pain or fever. He has oxygen tank at home but was afraid to increase oxygen supply from the tank. In the ER he was admitted for management evaluation of wheezing with underlying cancer and COPD he received steroids along DuoNeb treatment. His ABG is unremarkable. BNP slightly elevated. X-ray showing hyperinflated lungs. Patient is stating that he bring up small quantity of sputum with yellow color which has not changed in a long time. Review of Systems 2 Const: Denies: fever(s) Eyes: Denies: change in vision ENMT: Denies: throat pain Card: Denies: chest pain Resp: Reports: dyspnea, productive cough and wheezing Medications/Allergies Home Medications Medication Instructions Recorded Confirmed Last Taken Type blood-glucose meter (OneTouch #1 ea 01/25/23 08/07/24 Unknown Rx Ultra2 Meter kit) lancets (OneTouch UltraSoft #100 ea 01/25/23 08/07/24 Unknown Rx Lancets) lidocaine-prilocaine 2.5 %-2.5 % 1 applic topical DIRECTED #30 05/20/23 08/07/24 Unknown Rx topical cream grams sennosides 8.6 mg-docusate sodium 1 tab-cap PO DAILY PRN Constipation 10/04/23 08/07/24 Unknown History 50 mg tablet (Senna Plus) blood sugar diagnostic (OneTouch #50 ea 12/27/23 08/07/24 Unknown Rx Ultra Test strips) Foot Drop AFO #1 ea 04/04/24 08/07/24 Unknown Rx ondansetron HCl 8 mg tablet See Rx Instructions .Route 06/12/24 08/07/24 Unknown Rx .COMPLEX #90 tabs gabapentin 300 mg capsule 300 mg PO TID #90 caps 07/10/24 08/07/24 Unknown Rx atorvastatin 40 mg tablet (Lipitor) 40 mg PO DAILY #30 tabs 07/12/24 08/07/24 Unknown Rx metoprolol tartrate 25 mg tablet 25 mg PO BID #60 tabs 07/12/24 08/07/24 Unknown Rx furosemide 40 mg tablet 40 mg PO DAILY PRN shortness of 07/22/24 08/07/24 Unknown Rx breath #30 tabs ipratropium 0.5 mg-albuterol 3 mg 3 ml inhalation Q6H.RESP #180 mL 07/22/24 08/07/24 Unknown Rx (2.5 mg base)/3 mL nebulization soln pantoprazole 40 mg tablet,delayed 40 mg PO DAILY #14 tabs 07/22/24 08/07/24 Unknown Rx release prednisone 10 mg tablet See Taper PO DIRECTED #42 tabs 07/22/24 08/07/24 Unknown Rx zolpidem 10 mg tablet (Ambien) 10 mg PO .at bedtime #30 tabs 07/27/24 08/07/24 Unknown Rx budesonide 0.5 mg/2 mL suspension 0.5 mg (2 mL) inhalation 07/28/24 08/07/24 Unknown Rx for nebulization BID.RESPIRATORY #120 mL citalopram 20 mg tablet 20 mg PO DAILY #30 tabs 07/28/24 08/07/24 Unknown Rx oxycodone 20 mg tablet 20 mg PO QID PRN pain 30 days #120 08/02/24 08/07/24 Unknown Rx tabs formoterol fumarate 20 mcg/2 mL 2 ml inhalation Q12H #120 mL 08/04/24 08/07/24 Unknown Rx solution for nebulization (Perforomist) ergocalciferol (vitamin D2) 1,250 1,250 mcg PO .weekly #4 caps 08/07/24 Unknown Rx mcg (50,000 unit) capsule Allergies Allergy/AdvReac Type Severity Reaction Status Date / Time amoxicillin Allergy Severe ALGY-Rash Verified 08/07/24 08:36 Penicillins Allergy Severe ALGY-Rash Verified 08/07/24 08:36 bupropion [From Wellbutrin] AdvReac Severe ADR-Itching Verified 08/07/24 08:36 PFSH Acute 2 PFSH: Medical History Diastolic heart failure Moderate aortic stenosis Acquired left foot drop Peripheral neuropathy Traumatic compression fracture of L5 vertebra Antineoplastic chemotherapy induced anemia History of radiation therapy Compression fx, thoracic spine Non-small cell lung cancer Hypertension Diabetes mellitus with hyperglycemia, without long-term current use of insulin Personal history of nicotine dependence Coronary artery disease COPD (chronic obstructive pulmonary disease) with emphysema Surgical History History of kyphoplasty (04/09/23) T7 kyphoplasty with biopsy of the T7 vertebral body and with radiofrequency ablation of T7 tumor Port-A-Cath in place Right chest wall 05/18/23 History of coronary artery stent placement History of cholecystectomy History of appendectomy Family History Other CAD (coronary artery disease) Cancer Hyperlipidemia Hypertension Denies family history of Bleeding disorder Social History Smoking and tobacco/nicotine status: former use of tobacco/nicotine Second hand smoke exposure: Yes Alcohol intake: current Alcohol intake frequency: holidays/special occasions only Substance/Drug Use: unknown Adopted: No Caregiver/support person: No Lives independently: Yes Household members: none Housing: House Marital status: Number of children: 1 Number of grandchildren: 3 service: No Current occupational status: retired Do you think of yourself as: Straight/Heterosexual Current gender identity: Male Vitals/I&O/Wt Last Vital Signs Temp 97.8 F 08/29/24 18:28 Pulse 75 08/29/24 18:28 Resp 22 H 08/29/24 18:28 BP 121/78 08/29/24 18:28 Pulse Ox 87 L 08/29/24 18:28 O2 Del Method Nasal Cannula 08/29/24 18:28 O2 Flow Rate 2 08/29/24 18:28 Weight last 48 hrs Weight 90.718 kg Physical Exam 2 Narrative: Awake and alert Currently on 5 L nasal cannula Bilateral rhonchi No active wheeze No respiratory distress or conversational dyspnea Patient is comfortable No use of respiratory accessory muscles Pleasant cooperative GCS 15 S1, S2 Hemodynamically stable Data 08/29/24 19:00 08/29/24 19:00 A&P Assessment and plan (1) Moderate aortic stenosis: (2) Malignant neoplasm of upper lobe, left bronchus or lung: (3) Secondary cancer of bone: (4) Cancer related pain: (5) COPD (chronic obstructive pulmonary disease) with emphysema: (6) Lung nodule, multiple: (7) Acute hypoxemic respiratory failure: (8) Acute exacerbation of chronic obstructive airways disease: (9) COPD with acute exacerbation: Plan Acute COPD exacerbation At home uses 3 L at baseline, currently on 4.5 L Afebrile No subsequent labs or does not show any sign of consolidation other than hyperinflation related to COPD Start IV steroids along DuoNeb Would use montelukast To decrease work of breathing may need BiPAP if worsening however for now he is stable without any sign of conversational dyspnea or respiratory distress Admit to [facility] History of lung cancer non-small cell lung cancer status post chemo currently on immunotherapy, patient with another PET scan Type II diabetic continue with sliding scale Active smoker, has not smoked in last 3 days, patient is stating that he is trying to quit slowly Full code Cardiac diet DVT prophylaxis added Diastolic CHF without acute exacerbation continue home dose of Lasix Attestations 2 Medical Necessity Statement*: Anticipating discharge in next 24 to 48 hours Diagnoses Moderate aortic stenosis I35.0 Malignant neoplasm of upper lobe, left bronchus or lung C34.12 Secondary cancer of bone C79.51 Cancer related pain G89.3 COPD (chronic obstructive pulmonary disease) with emphysema J43.9 Lung nodule, multiple R91.8 Acute hypoxemic respiratory failure J96.01 Acute exacerbation of chronic obstructive airways disease J44.1 COPD with acute exacerbation J44.1
[2024-08-29] MEDS: albuterol 2.5 mg/3 mL Neb INHALATION (20:33)
[2024-08-29] MEDS: ipratropium-albuterol 3 mL Neb INHALATION (20:33)
[2024-08-29] MEDS: doxycycline 100 MG in sodium chloride 0.9% (plus) 100 ML IV (20:37)
[2024-08-29] MEDS: enoxaparin 40 mg/0.4 mL Syringe SUBCUT (22:24)
[2024-08-29] MEDS: oxyCODONE 5 mg IR Tab/Cap 20 MG PO (23:17)
[2024-08-30] VITALS (9 sets, daily range): BP systolic 103–128; BP diastolic 50–75; PULSE 74–106; RESP 15–17; TEMP 36.4–36.6; O2SAT 91–94
[2024-08-30] MEDS: ipratropium-albuterol 3 mL Neb INHALATION ×2 (02:49→09:14)
[2024-08-30] MEDS: acetylcysteine 200 mg/mL SDV 4 mL INHALATION ×2 (02:49→09:12)
[2024-08-30 05:28] LABS: Basophils % 0.3 %; Eosinophils % 1.1 %; Hematocrit 41.5 % (37-53); Lymphocytes # 0.7 10^3/uL (0.8-4.8); Lymphocytes % 19.4 %; Mean Corpuscular HGB Conc 32.3 g/dL (30-55); Mean Corpuscular Hemoglobin 28.1 pg (27-33); Mean Platelet Volume 8.6 fL (7.4-10.4); Monocytes # 0.1 10^3/uL (0.2-0.9); Monocytes % 1.4 %; Neutrophils # 2.72 10^3/uL (1.8-7.7); Neutrophils % 77.5 %; Nucleated Red Blood Cells % 0 %; Platelet Count 133 10^3/cmm (157-399); Red Blood Count 4.77 10^6/uL (3.85-5.65); Red Cell Distribution Width 14.8 % (12.1-15.1); White Blood Count 3.51 10^3/uL (3.29-11.43)
[2024-08-30 05:55] LABS: Anion Gap 12.9 (5-19); Blood Urea Nitrogen 9 mg/dL (8-23); C Reactive Protein 9.1 mg/L (0.0-4.9); Calcium 8.2 mg/dL (8.5-10.5); Carbon Dioxide 26 mmol/L (22-29); Chloride 100 mmol/L (98-107); Creatinine Clr Calc Pharmacy 103.5875; Glomerular Filtration Rate 112.1 mL/min (90-130); Glucose 183 mg/dL (65-115); Magnesium 2.1 mg/dL (1.7-2.3); Osmolality Calculated 283 mOsm/kg (285-295); Phosphorus 2.5 mg/dL (2.5-4.5); Potassium 3.9 mmol/L (3.5-5.1); Sodium 135 mmol/L (136-145)
[2024-08-30] MEDS: methylPREDNISolone sod succ 40 mg/mL INJ 30 MG IVP (06:20)
[2024-08-30] MEDS: metoprolol tartrate 25 mg Tablet PO (08:47)
[2024-08-30] MEDS: azithromycin 250 mg Tablet 500 MG PO (08:48)
[2024-08-30] MEDS: pantoprazole DR 40 mg Tablet PO (08:48)
[2024-08-30] MEDS: FUROsemide 40 mg Tablet PO (08:48)
[2024-08-30] MEDS: ondansetron 2 mg/ML SDV 2 mL 4 MG IVP (08:52)
--- NOTE | 2024-08-30 10:30 | PC.CHAP ---
Pastoral Care Encounter/Spiritual Assessment Type of Contact [] Declined court bailiff or sheriff visit [] Patient/Family/Request visit [] Outpatient visit [] Follow-up visit [] Physician referral [] Code/Alert [x] Routine visit [] Staff referral [] Actively dying [] Patient sleeping [] Family support [] [] Out of room [] Palliative care [] [] Receiving care in room [] Pre-surgical visit [] Trauma [] Long length of stay [] ICU visit [] Other: Relational/Emotional Strength [x] Patient feels connected with others/family/visitors/staff [] Distress [] Loneliness/isolation [] Abandonment Spirituality of Patient [x] Person of Yvonne [] Attends Scientology of their Yvonne [x] Believes in Prayer [] Reads Bible or Episcopalian materials [] There are Spiritual issues to be addressed Cell Operator Interventions [x] Prayer [x] Active listening [] Non-anxious presence [x] Spiritual/emotional support [] Crisis/trauma care [] Spiritual counseling [] Bereavement support [] Provided bereavement packet [] Provided Bible/devotional materials [] Provided toy/stuffed animal, coloring book to patient or family member [] Provided Communion [] Anointing/[place] [] Salvation [x] Completed spiritual assessment [] Other: Impact on Illness or Injury [] Angry [] Fearful [] Anxious [] Often cries [] Exhaustion [] Unable to work [] Unable to attend hoahaoism [] Unable to walk/stand [] Unable to read [] Unable to drive [] Unable to eat/drink [] Unable to sleep [] Unable to be with family [] Patient intubated [] Other: Summary Time spent with patient 5 min
--- NOTE | 2024-08-30 11:33 | P.DS_ITS ---
Discharge Providers Date of Admission: 08/29/24 20:39 Date of Discharge: August 30, 2024 Attending Provider at Admission: Scott Lopez MD Attending Provider at Discharge: Charmaine Lindquist MD Primary Care Provider: ROYCE Whitt Diagnoses at Discharge Discharge Diagnosis (1) Moderate aortic stenosis: Status: Acute (2) Malignant neoplasm of upper lobe, left bronchus or lung: Status: Chronic (3) Secondary cancer of bone: Status: Acute (4) Cancer related pain: Status: Acute (5) COPD (chronic obstructive pulmonary disease) with emphysema: Status: Chronic (6) Lung nodule, multiple: Status: Acute (7) Acute hypoxemic respiratory failure: Status: Resolved (8) Acute exacerbation of chronic obstructive airways disease: Status: Resolved (9) COPD with acute exacerbation: Status: Resolved Reason for Visit Reason for Visit: SOB Hospital Course Hospital Course Admitted for COPD exacerbation DC with abx and steroids pt to follow up with pcp outpatient. continue to pursue cancer f/u with oncology Physical Exam Narrative: Awake and alert Currently on 3 L nasal cannula, says he feels better minimal ronchi b/l No active wheeze No respiratory distress or conversational dyspnea Patient is comfortable No use of respiratory accessory muscles Pleasant cooperative GCS 15 S1, S2 Hemodynamically stable Discharge Data Studies Completed and Pending Completed Studies During Hospitalization Category Date Time Status XR chest 1V portable [id number] Stat Exams 08/29/24 18:17 Completed Radiology Impressions Chest X-Ray 08/29/24 18:17 IMPRESSION: A few scattered small nodular opacities may represent atypical infection/inflammation. Recommend imaging follow-up after clinical treatment to evaluate for resolution. Laboratory Results WBC 3.51 10^3/uL (3.29-11.43) 08/30/24 05:18 RBC 4.77 10^6/uL (3.85-5.65) 08/30/24 05:18 Hgb 13.40 g/dL (11.27-16.99) 08/30/24 05:18 Hct 41.5 % (37-53) 08/30/24 05:18 MCV 87.0 fl (82-101) 08/30/24 05:18 MCH 28.1 pg (27-33) 08/30/24 05:18 MCHC 32.3 g/dL (30-55) 08/30/24 05:18 RDW 14.8 % (12.1-15.1) 08/30/24 05:18 Plt Count 133 10^3/cmm (157-399) L 08/30/24 05:18 MPV 8.6 fL (7.4-10.4) 08/30/24 05:18 Neut % (Auto) 77.5 % 08/30/24 05:18 Lymph % (Auto) 19.4 % 08/30/24 05:18 [place] % (Auto) 1.4 % 08/30/24 05:18 Eos % (Auto) 1.1 % 08/30/24 05:18 Baso % (Auto) 0.3 % 08/30/24 05:18 Neut # (Auto) 2.72 10^3/uL (1.8-7.7) 08/30/24 05:18 Lymph # (Auto) 0.7 10^3/uL (0.8-4.8) L 08/30/24 05:18 [place] # (Auto) 0.1 10^3/uL (0.2-0.9) L 08/30/24 05:18 Eos # (Auto) 0.0 10^3/uL (0.0-0.8) 08/30/24 05:18 Baso # (Auto) 0.0 10^3/uL (0.0-0.1) 08/30/24 05:18 Nucleated RBC % (auto) 0 % 08/30/24 05:18 Nucleated RBCs # 0.0 /100WBC 08/30/24 05:18 Specimen Type Arterial 08/29/24 18:46 Sample Site Radial, left 08/29/24 18:46 ABG pH 7.40 (7.35-7.45) 08/29/24 18:46 ABG pCO2 48.2 mmHg (35-45) H 08/29/24 18:46 ABG pO2 64.5 mmHg (80.0-100.0) L 08/29/24 18:46 ABG PO2/FiO2 Ratio 201 08/29/24 18:46 ABG HCO3 30.1 mmol/L (22-26) H 08/29/24 18:46 ABG O2 Saturation 91.4 08/29/24 18:46 ABG Base Excess 4.3 mmol/L (-2.0-2.0) H 08/29/24 18:46 Oswaldo Test Pos 08/29/24 18:46 A-a O2 Gradient 13.6 mmHg (5-10) H 08/29/24 18:46 Hematocrit 43.3 % (42-52) 08/29/24 18:46 Hgb O2 Saturation 89.5 % (95-100) L 08/29/24 18:46 Carboxyhemoglobin 1.1 %THgb (0.4-20.1) 08/29/24 18:46 Methemoglobin 1.0 % (0.4-1.5) 08/29/24 18:46 Total Hemoglobin 14.1 g/dL (14-18) 08/29/24 18:46 Sodium 138.0 mmol/L (131-143) 08/29/24 18:46 Potassium 3.7 mmol/L (3.5-5.0) 08/29/24 18:46 Glucose 101.0 mg/dL (70-115) 08/29/24 18:46 Ionized Calcium 1.2 mmol/L (1.1-1.4) 08/29/24 18:46 O2 Delivery Device Nc 08/29/24 18:46 O2 Liters/Min 3.0 % 08/29/24 18:46 FiO2 32.0 % 08/29/24 18:46 Canary Breeder ID Cak 08/29/24 18:46 Sodium 135 mmol/L (136-145) L 08/30/24 05:18 Potassium 3.9 mmol/L (3.5-5.1) 08/30/24 05:18 Chloride 100 mmol/L (98-107) 08/30/24 05:18 Carbon Dioxide 26 mmol/L (22-29) 08/30/24 05:18 Anion Gap 12.9 (5-19) 08/30/24 05:18 BUN 9 mg/dL (8-23) 08/30/24 05:18 Creatinine 0.7 mg/dL (0.7-1.2) 08/30/24 05:18 GFR Calculation 112.1 mL/min (90-130) 08/30/24 05:18 Glucose 183 mg/dL (65-115) H 08/30/24 05:18 Calculated Osmolality 283 mOsm/kg (285-295) L 08/30/24 05:18 Calcium 8.2 mg/dL (8.5-10.5) L 08/30/24 05:18 Phosphorus 2.5 mg/dL (2.5-4.5) 08/30/24 05:18 Magnesium 2.1 mg/dL (1.7-2.3) 08/30/24 05:18 Total Bilirubin 0.6 mg/dL (0.15-1.2) 08/29/24 19:00 AST 12 U/L (0-40) 08/29/24 19:00 ALT 8 U/L (0-41) 08/29/24 19:00 Alkaline Phosphatase 119 U/L (40-130) 08/29/24 19:00 C-Reactive Protein 9.1 mg/L (0.0-4.9) H 08/30/24 05:18 NT-Pro-B Natriuret Pep 411 pg/mL (0-125) H 08/29/24 19:00 Total Protein 6.4 g/dL (6.6-8.7) L 08/29/24 19:00 Albumin 3.9 g/dL (3.5-5.2) 08/29/24 19:00 Globulin 2.5 g/dL (1.3-4.6) 08/29/24 19:00 Vitals Last Vital Signs Temp 97.8 F 08/30/24 07:28 Pulse 106 H 08/30/24 09:25 Resp 16 08/30/24 09:18 BP 103/50 08/30/24 07:28 Pulse Ox 92 08/30/24 09:25 O2 Del Method Nasal Cannula 08/30/24 09:25 O2 Flow Rate 3 08/30/24 09:25 Discharge Plan Discharge Patient Disposition: Home Condition: Stable Prescriptions: Continued (DME) blood-glucose meter [OneTouch Ultra2 Meter] Kit See Rx Instructions .Route Qty: 1 0RF Rx Instructions: As directed (DME) lancets [OneTouch UltraSoft Lancets] Misc See Rx Instructions .Route Qty: 100 2RF Rx Instructions: one day ondansetron HCl 8 mg tablet See Rx Instructions .ROUTE .COMPLEX Qty: 90 3RF Dose Instruction: TAKE ONE TABLET BY MOUTH THREE TIMES DAILY NEEDED FOR NAUSEA AND VOMITING Rx Instructions: TAKE ONE TABLET BY MOUTH THREE TIMES DAILY NEEDED FOR NAUSEA AND VOMITING sennosides-docusate sodium [Senna Plus] 8.6-50 mg tablet 1 tab-cap PO DAILY PRN (Reason: Constipation) Patient Comments: as needed metoprolol tartrate 25 mg tablet 25 mg PO BID Qty: 60 5RF atorvastatin [Lipitor] 40 mg tablet 40 mg PO DAILY Qty: 30 5RF zolpidem [Ambien] 10 mg tablet 10 mg PO .at bedtime Qty: 30 0RF citalopram 20 mg tablet 20 mg PO DAILY Qty: 30 2RF Rx Instructions: to improve mood note dose increase (DME) OneTouch Ultra Test Strip See Rx Instructions .Route Qty: 50 5RF Rx Instructions: one daily (DME) Foot Drop AFO See Rx Instructions .Route .MEDSUPPLY Qty: 1 0RF Rx Instructions: As directed gabapentin 300 mg capsule 300 mg PO TID Qty: 90 3RF formoterol fumarate [Perforomist] 20 mcg/2 mL solution for nebulization 2 ml inhalation Q12H Qty: 120 5RF ergocalciferol (vitamin D2) 1,250 mcg (50,000 unit) capsule 1,250 mcg PO .weekly Qty: 4 2RF furosemide 40 mg tablet 40 mg PO DAILY PRN (Reason: shortness of breath) Qty: 30 2RF Dose Instruction: TAKE ONE TABLET BY MOUTH EVERY MORNING FOR EDEMA Discontinued prednisone 10 mg tablet See Taper PO DIRECTED Qty: 42 0RF Taper: predniSONE 60-10 60 mg Daily for 2 Days and 0 Hour 50 mg Daily for 2 Days and 0 Hour 40 mg Daily for 2 Days and 0 Hour 30 mg Daily for 2 Days and 0 Hour 20 mg Daily for 2 Days and 0 Hour 10 mg Daily for 2 Days and 0 Hour Rx Instructions: see taper instructions No Action oxycodone 20 mg tablet 20 mg PO QID PRN (Reason: pain) 30 Days Qty: 120 0RF moxifloxacin 400 mg tablet 400 mg PO DAILY 7 Days Qty: 7 0RF Discharge Orders: Discharge Order (Routine); Ordered 08/30/24 Ordered By: Charmaine Lindquist Referrals: Viv Mcgarry FNP-C [Primary Care Provider] - 09/05/24 1:40 pm Discharge Diet: Cardiac Discharge Activity: Resume usual activity Patient Instructions: Azithromycin (By mouth), Methylprednisolone (By mouth), COPD (Chronic Obstructive Pulmonary Disease) (GEN), COPD Stoplight, Opioid Safety Discharge Attestations Time Spent in Discharge Care*: greater than 30 min Status at Discharge: Cognitive status at discharge: cognitively intact , Behavioral status at discharge: cooperative , Quality Metrics Clinical Quality Measures [ No reported AMI, CVA or VTE this stay] Coding Level of Care Code Acute Code for Chg Fwd Diagnoses Moderate aortic stenosis I35.0 Malignant neoplasm of upper lobe, left bronchus or lung C34.12 Secondary cancer of bone C79.51 Cancer related pain G89.3 COPD (chronic obstructive pulmonary disease) with emphysema J43.9 Lung nodule, multiple R91.8 Acute hypoxemic respiratory failure J96.01 Acute exacerbation of chronic obstructive airways disease J44.1 COPD with acute exacerbation J44.1
--- NOTE | 2024-08-30 11:46 | PC.NURSE ---
This nurse ambulated pt in room to monitor O2 sats with ambulation. Pt tolerated activity well on 3L NC.
[2024-08-30] MEDS: oxyCODONE 5 mg IR Tab/Cap 20 MG PO (12:56)
== END 2024-08-30 13:02 | disposition home or self-care (01) ==
LOC: ER 20:32 → MEDSURG 21:07
PROVIDERS: Emergency Medicine; Admitting Provider Internal Medicine; Emergency Provider Emergency Medicine; PCP Nurse Practitioner; Visit Provider Internal Medicine
DX: I35.0 Nonrheumatic aortic (valve) stenosis (principal); C34.12 Malignant neoplasm of upper lobe, left bronchus or lung; C79.51 Secondary malignant neoplasm of bone; G89.3 Neoplasm related pain (acute) (chronic); J43.9 Emphysema, unspecified; R91.8 Other nonspecific abnormal finding of lung field; J96.01 Acute respiratory failure with hypoxia; J44.1 Chronic obstructive pulmonary disease with (acute) exacerbation; Z99.81 Dependence on supplemental oxygen; I11.0 Hypertensive heart disease with heart failure; I50.30 Unspecified diastolic (congestive) heart failure; E11.42 Type 2 diabetes mellitus with diabetic polyneuropathy; E11.65 Type 2 diabetes mellitus with hyperglycemia; I25.10 Atherosclerotic heart disease of native coronary artery without angina pectoris; Z87.891 Personal history of nicotine dependence
CPT/HCPCS: 36415; 36600; 71045; 80048; 80051; 80053; 82330; 82805; 83735; 83880; 84100; 85025; 86140; 93005; 94640; 96365; 96372; 96375; 96376; 99285; G0378; J1650; J2405; J2919; J3490; J7608; J7613; Q0144

== ENCOUNTER 2024-09-18 08:30 | Oncology outpatient (recurring) (ONCR) | payer MEDICARE, SELFPAY ==
--- NOTE | 2024-09-08 13:09 | PETR_ITS ---
PROCEDURE INFORMATION: Exam: PET/CT Skull Base to Mid-thigh Exam date and time: 09/08/2024 2:24 PM Age: 69 years old Clinical indication: Restaging of metastatic lung cancer; Primary cancer: Lung cancer in the left upper lobe; Prior surgery; Surgery date: 6+ months; Surgery type: Port, gb, appy, coronary artery stent; Additional info: Followup lung cancer, compare to chest CT angiogram LABS AND CLINICAL REPORTS: Glucose: 80 mg/dl Treatment strategy for malignancy (PET staging): Restaging (PS) TECHNIQUE: Imaging protocol: Following at least four-hour fasting and following the injection of radiopharmaceutical, low dose CT images were obtained. Then, PET images were obtained. Attenuation corrected images were constructed using the CT scan. Fused images of PET and CT were reviewed. The standardized uptake values (SUV) reported below are maximum values within a region of interest, expressed in gm/ml. Exam includes orbital meatal line to mid-thigh. SUV normalization method: BodyWeight Radiopharmaceutical: 13.57 mCi F-18 FDG (Fluorodeoxyglucose), IV. Time of imaging post radiopharmaceutical administration: 44 minutes Injection site: RIGHT AC COMPARISON: PT PET skull to thigh SUBS [id number] 08/03/2023, CTA chest 07/19/2024 FINDINGS: Tubes, catheters and devices: Port catheter placed via the right internal jugular vein terminates in the cavoatrial junction. Brain: Normal physiologic uptake. Pharynx: No abnormal uptake. Larynx: No abnormal uptake. Lungs, pleura and trachea: 1.2 cm right upper lobe nodule stable since 07/19/2024 measures 15.9 SUV suggestive of malignancy. 0.9 cm perivascular focus measuring 7.8 SUV in the right upper lobe between the nodule described above and the hilum (series 301, image 102) likely represents another malignant finding. Wedge-shaped opacity with air bronchogram in the lingula with mildly increased uptake of 4.1 SUV increased in size since 07/19/2024 is compatible with benign finding of atelectasis or pneumonia. Extensive solid patchy and ground-glass opacity in the left lower lobe with the highest uptake of 5 SUV new since 07/19/2024 is compatible with pneumonia. Other small patchy opacities suggestive of pneumonia present in the left upper lobe and the right lower lobe on 07/19/2024 have resolved in the interval. There is stable small peripheral scar in the left upper lobe on series 202, image 271 with no abnormal uptake. No pleural effusion. Heart: Unremarkable. There is no cardiomegaly. Severe coronary artery calcification is present. There is no pericardial effusion. Mediastinal space: See below in lymph nodes . Maximum blood pool uptake is 2.8 SUV. Liver: New small bilobar metastases measuring up to 1.9 cm with the highest uptake of 27.5 SUV. Gallbladder and biliary ducts: No abnormal uptake. Status post cholecystectomy. Pancreas: No abnormal uptake. Spleen: No abnormal uptake. No splenomegaly. Stable calcified granulomas. Adrenal glands: No abnormal uptake. No nodules. Kidneys and ureters: Normal physiologic uptake. No hydronephrosis. Stomach and bowel: No abnormal uptake. Vasculature: No abnormal uptake. Lymph nodes: Intense uptake of 14.5 SUV within the right hilar lymph node is suggestive of malignancy. Mildly increased uptake in other mediastinal lymph nodes (4.5 SUV in the subcarinal node, 3.4 SUV in the small are right paratracheal lymph node) and in the left hilum (3.8 SUV) is nonspecific, can be benign reactive in nature. No FDG avid lymphadenopathy in the neck, abdomen, pelvis, and extremities. Stable sequela of exposure to granulomatous disease with calcified granulomas in bilateral hilar and mediastinal lymph nodes. Skeleton: Multiple FDG avid bone metastases with the highest uptake of 29.6 measuring anteriorly in the left iliac bone (series 301, image 240) with no corresponding lytic lesions on CT. There is metastatic involvement of T3, T4, T12, L4, L5, S2, bilateral pelvic bones most prominently in the left iliac bone, right scapula, left ribs 2 and 9. Stable moderate compression and vertebroplasty of T7. Slightly increased linear uptake of 3.7 SUV along the lower endplate of L1 with new sclerosis suggestive of subacute or early chronic benign fracture. Stable sharply-circumscribed sclerotic lesion in the right aspect of L5 vertebral body in keeping with treated nonviable bone metastasis. Soft tissues: No abnormal uptake in the visualized head, neck, chest, abdomen, pelvis, and extremities. PET/PET skull to thigh SUBS [id number] IMPRESSION: 1. In comparison with prior PET-CT on 08/03/2023 there is new disseminated malignancy with multiple bone metastases and multiple bilobar liver metastases. New FDG avid nodule in the right upper lobe with smaller perivascular nodule toward the hilum and new right hilar metastatic lymphadenopathy resemble of the pattern of new primary lung cancer. No local recurrence in the left lung. 2. There is waxing and waning pneumonia in comparison with 07/19/2024 with progressive opacities in the lingula and the left lower lobe, and interval improvement of opacities in the left upper lobe and the right lower lobe. Mildly increased uptake within mediastinal and left hilar lymph nodes may be benign reactive in nature though not entirely specific.
[2024-09-18 09:14] LABS: Basophils # 0.1 10^3/uL (0.0-0.1); Basophils % 0.9 %; Eosinophils # 0.3 10^3/uL (0.0-0.8); Eosinophils % 4.6 %; Hematocrit 40.4 % (37-53); Lymphocytes # 1.8 10^3/uL (0.8-4.8); Lymphocytes % 26.4 %; Mean Corpuscular HGB Conc 32.2 g/dL (30-55); Mean Corpuscular Hemoglobin 28.3 pg (27-33); Mean Platelet Volume 8.4 fL (7.4-10.4); Monocytes # 0.5 10^3/uL (0.2-0.9); Monocytes % 6.5 %; Neutrophils # 4.24 10^3/uL (1.8-7.7); Neutrophils % 61.3 %; Nucleated Red Blood Cells % 0 %; Platelet Count 160 10^3/cmm (157-399); Red Blood Count 4.59 10^6/uL (3.85-5.65); Red Cell Distribution Width 15.9 % (12.1-15.1); White Blood Count 6.92 10^3/uL (3.29-11.43)
[2024-09-18 09:40] LABS: Alanine Aminotransferase 10 U/L (0-41); Albumin Level 3.8 g/dL (3.5-5.2); Alkaline Phosphatase 106 U/L (40-130); Anion Gap 7.8 (5-19); Aspartate Amino Transferase 12 U/L (0-40); Blood Urea Nitrogen 9 mg/dL (8-23); Calcium 8.8 mg/dL (8.5-10.5); Carbon Dioxide 33 mmol/L (22-29); Chloride 98 mmol/L (98-107); Globulin 3.1 g/dL (1.3-4.6); Glomerular Filtration Rate 96.1 mL/min (90-130); Glucose 104 mg/dL (65-115); Lactate Dehydrogenase 147 U/L (135-225); Magnesium 2.1 mg/dL (1.7-2.3); Osmolality Calculated 279 mOsm/kg (285-295); Potassium 3.8 mmol/L (3.5-5.1); Sodium 135 mmol/L (136-145); Thyroid Stimulating Hormone 2.44 uIU/mL (0.27-4.20); Total Bilirubin 0.3 mg/dL (0.15-1.2); Total Protein 6.9 g/dL (6.6-8.7)
== END 2024-09-18 23:59 | disposition home or self-care (01) ==
PROVIDERS: PCP Nurse Practitioner; Visit Provider Internal Medicine Hematology & Oncology
DX: Z53.9 Procedure and treatment not carried out, unspecified reason; C34.12 Malignant neoplasm of upper lobe, left bronchus or lung; C79.51 Secondary malignant neoplasm of bone; C78.7 Secondary malignant neoplasm of liver and intrahepatic bile duct; C77.1 Secondary and unspecified malignant neoplasm of intrathoracic lymph nodes; F41.8 Other specified anxiety disorders
CPT/HCPCS: 78815; 80053; 83615; 83735; 84443; 85025; 99214; A9552

== ENCOUNTER 2024-10-17 10:00 | Oncology outpatient (recurring) (ONCR) | payer MEDICARE, SELFPAY ==
[2024-09-27 08:39] LABS: Basophils # 0.1 10^3/uL (0.0-0.1); Basophils % 0.8 %; Eosinophils # 0.3 10^3/uL (0.0-0.8); Eosinophils % 5.4 %; Hematocrit 41.4 % (37-53); Lymphocytes # 2.2 10^3/uL (0.8-4.8); Lymphocytes % 36.1 %; Mean Corpuscular HGB Conc 31.9 g/dL (30-55); Mean Corpuscular Hemoglobin 27.6 pg (27-33); Mean Corpuscular Volume 86.4 fl (82-101); Mean Platelet Volume 8.7 fL (7.4-10.4); Monocytes # 0.5 10^3/uL (0.2-0.9); Monocytes % 7.9 %; Neutrophils # 2.96 10^3/uL (1.8-7.7); Neutrophils % 49.5 %; Nucleated Red Blood Cells % 0 %; Platelet Count 183 10^3/cmm (157-399); Red Blood Count 4.79 10^6/uL (3.85-5.65); White Blood Count 5.98 10^3/uL (3.29-11.43)
[2024-09-27 08:58] LABS: Alanine Aminotransferase 9 U/L (0-41); Albumin Level 3.8 g/dL (3.5-5.2); Alkaline Phosphatase 129 U/L (40-130); Anion Gap 12.6 (5-19); Aspartate Amino Transferase 14 U/L (0-40); Blood Urea Nitrogen 7 mg/dL (8-23); Carbon Dioxide 29 mmol/L (22-29); Chloride 99 mmol/L (98-107); Globulin 3.1 g/dL (1.3-4.6); Glomerular Filtration Rate 112.1 mL/min (90-130); Glucose 123 mg/dL (65-115); Osmolality Calculated 283 mOsm/kg (285-295); Potassium 3.6 mmol/L (3.5-5.1); Sodium 137 mmol/L (136-145); Total Bilirubin 0.4 mg/dL (0.15-1.2); Total Protein 6.9 g/dL (6.6-8.7)
[2024-09-27] MEDS: sodium chloride 0.9% 250 ML 75 ML IV (10:11)
[2024-09-27] MEDS: ondansetron 2 mg/ML SDV 2 mL 8 MG IVP (10:13)
[2024-09-27] MEDS: dexamethasone 20 MG in sodium chloride 0.9% 50 ML 188 MG IV (10:18)
[2024-09-27] MEDS: cyanocobalamin 1,000 mcg/mL SDV 1000 MCG IM (10:23)
[2024-09-27] MEDS: [UNRECOGNIZED DRUG - OTHER] IV (11:16)
[2024-09-27] MEDS: PEMETREXED DISODIUM IV (11:16)
[2024-09-27 11:38] VITALS: BP 138/78; PULSE 64; O2SAT 94
[2024-10-17 08:12] VITALS: BP 116/66; PULSE 80; RESP 16; TEMP 36.3; O2SAT 92
[2024-10-17 10:02] LABS: Basophils % 0.4 %; Lymphocytes # 1.4 10^3/uL (0.8-4.8); Lymphocytes % 13.9 %; Mean Corpuscular HGB Conc 32.6 g/dL (30-55); Mean Corpuscular Volume 85.8 fl (82-101); Mean Platelet Volume 8.3 fL (7.4-10.4); Monocytes # 0.7 10^3/uL (0.2-0.9); Neutrophils # 7.37 10^3/uL (1.8-7.7); Neutrophils % 74.9 %; Nucleated Red Blood Cells % 0 %; Platelet Count 329 10^3/cmm (157-399); Red Blood Count 4.43 10^6/uL (3.85-5.65); Red Cell Distribution Width 16.6 % (12.1-15.1); White Blood Count 9.84 10^3/uL (3.29-11.43)
[2024-10-17 10:19] LABS: Alanine Aminotransferase 36 U/L (0-41); Albumin Level 3.4 g/dL (3.5-5.2); Alkaline Phosphatase 122 U/L (40-130); Anion Gap 13.8 (5-19); Aspartate Amino Transferase 35 U/L (0-40); Blood Urea Nitrogen 8 mg/dL (8-23); Carbon Dioxide 27 mmol/L (22-29); Chloride 97 mmol/L (98-107); Creatinine Clr Calc Pharmacy 92.5564; Globulin 3.7 g/dL (1.3-4.6); Glomerular Filtration Rate 83.9 mL/min (90-130); Glucose 166 mg/dL (65-115); Osmolality Calculated 280 mOsm/kg (285-295); Potassium 3.8 mmol/L (3.5-5.1); Sodium 134 mmol/L (136-145); Total Bilirubin 0.3 mg/dL (0.15-1.2); Total Protein 7.1 g/dL (6.6-8.7)
[2024-10-17] MEDS: sodium chloride 0.9% 250 ML 75 ML IV (11:13)
[2024-10-17] MEDS: ondansetron 2 mg/ML SDV 2 mL 8 MG IVP (11:15)
[2024-10-17] MEDS: dexamethasone 20 MG in sodium chloride 0.9% 50 ML 188 MG IV (11:35)
[2024-10-17] MEDS: SODIUM CHLORIDE 0.9% IV (12:02)
[2024-10-17] MEDS: PEMETREXED DISODIUM IV (12:02)
[2024-10-17 12:19] VITALS: BP 120/75; PULSE 72; RESP 17; TEMP 36.3; O2SAT 90
[2024-10-17 12:20] VITALS: BP 124/78; PULSE 74; RESP 17; TEMP 36.6; O2SAT 97
== END 2024-10-17 23:59 | disposition home or self-care (01) ==
PROVIDERS: Nurse Practitioner; PCP Nurse Practitioner; Visit Provider Internal Medicine Medical Oncology
DX: C34.12 Malignant neoplasm of upper lobe, left bronchus or lung (principal); C79.51 Secondary malignant neoplasm of bone; Z53.9 Procedure and treatment not carried out, unspecified reason; Z51.11 Encounter for antineoplastic chemotherapy; Z79.899 Other long term (current) drug therapy; Z79.52 Long term (current) use of systemic steroids; Z87.891 Personal history of nicotine dependence
CPT/HCPCS: 80053; 85025; 96367; 96372; 96374; 96375; 96413; 99214; J1100; J2405; J3420; J7050; J9305

== ENCOUNTER → 2024-10-30 12:33 | Outpatient (BNVA) | payer MEDICARE, SELFPAY | PROVIDERS: PCP Nurse Practitioner; Referring Provider Nurse Practitioner Family; Visit Provider Internal Medicine Cardiovascular Disease | DX: R07.9 Chest pain, unspecified (principal) | CPT/HCPCS: 93005 ==

== ENCOUNTER 2024-11-02 13:45 | Emergency (ER) | payer MEDICARE, SELFPAY ==
[2024-11-02 14:13] VITALS: BP 104/69; PULSE 67; RESP 20; TEMP 36.6; O2SAT 89; BMI 26.7
--- NOTE | 2024-11-02 14:33 | USCV_ITS ---
Oleg Garvey Age: 69 Gender: M : 1955 Exam Date: 11/02/2024 15:11 Ordering Phys: Emilio Lawrence MD Technologist: Exam Location: [facility] – [place] Indication: lt leg swelling PROCEDURES: Venous duplex imaging was performed in only the left lower extremity. The following venous structures were evaluated: common femoral vein, profunda vein, proximal portion of the greater saphenous vein, superficial femoral vein, and the popliteal vein. In addition, the posterior tibial and peroneal trunk were evaluated. FINDINGS: Normal 2-D Doppler and augmentation and compressibility throughout the lower extremity venous structures. Additional imaging through the proximal calf veins also reveals no thrombus. Limited evaluation of the greater saphenous vein is patent with no thrombus. CONCLUSIONS No evidence of left lower extremity DVT. Darrell Johnson MD (Electronically Signed) Final Date: 03 November 2024 10:55 S
--- NOTE | 2024-11-02 14:33 | ED_ITS ---
HPI - Extremity Problem 2 General: Chief complaint: Extremity Problem,Nontraumatic Stated complaint: leg and feet swelling Time Seen by Provider: 11/02/24 14:18 History of Present Illness: Chief complaint is left foot redness and pain. The patient states that it only hurts when he walks on it. He does have diabetes. He does not know if he has neuropathy. He denies any trauma or injury. He states he has chronic pain in both feet. He states he had surgery on his left foot for foot drop years ago and ever since then he gets problems where will turn red and get swollen. No history of DVT. He does not know if he is on any blood thinners. He cannot tell me many of his medications. He states he does have cancer in his lung that has spread to his bones in his liver. He is on chemotherapy and gets a dose about every 3 weeks. He states his last dose he believes was October 07. He states he does have a port. No pain or redness at the port site. No fever. He states he feels fine otherwise. No headache. No chest pain or shortness of breath or cough that is new. He has a mild chronic cough which is unchanged. No abdominal pain. No vomiting or diarrhea. He states his left leg is been red now and painful for about a week. Related Data Home Medications Medication Instructions Recorded Confirmed sennosides 8.6 mg-docusate sodium 1 tab-cap PO DAILY PRN Constipation 10/04/23 11/02/24 50 mg tablet (Senna Plus) aspirin 81 mg tablet,delayed 81 mg PO DAILY 10/17/24 11/02/24 release (Adult Low Dose Aspirin) budesonide 0.25 mg/2 mL suspension 0.25 mg inhalation BID 10/17/24 11/02/24 for nebulization cyanocobalamin (vitamin B-12) 500 500 mcg PO DAILY 10/17/24 11/02/24 mcg tablet gabapentin 300 mg capsule 300 mg PO BID 10/30/24 11/02/24 furosemide 40 mg tablet 40 mg PO QAM 11/02/24 11/02/24 lidocaine-prilocaine 2.5 %-2.5 % 1 applic topical PRN 11/02/24 11/02/24 topical cream zolpidem 10 mg tablet (Ambien) 10 mg PO .at bedtime PRN insomnea 11/02/24 11/02/24 Previous Rx's Medication Instructions Recorded blood-glucose meter (OneTouch #1 ea 01/25/23 Ultra2 Meter kit) lancets (OneTouch UltraSoft #100 ea 01/25/23 Lancets) blood sugar diagnostic (OneTouch #50 ea 12/27/23 Ultra Test strips) Foot Drop AFO #1 ea 04/04/24 atorvastatin 40 mg tablet (Lipitor) 40 mg PO DAILY #30 tabs 07/12/24 metoprolol tartrate 25 mg tablet 25 mg PO BID #60 tabs 07/12/24 citalopram 20 mg tablet 20 mg PO DAILY #30 tabs 07/28/24 formoterol fumarate 20 mcg/2 mL 2 ml inhalation Q12H #120 mL 08/04/24 solution for nebulization (Perforomist) ergocalciferol (vitamin D2) 1,250 1,250 mcg PO .weekly #4 caps 08/07/24 mcg (50,000 unit) capsule dexamethasone 4 mg tablet 4 mg PO BID #20 tabs 09/27/24 folic acid 1 mg tablet 1 mg PO DAILY #30 tabs 09/27/24 prochlorperazine maleate 10 mg 10 mg PO Q6H PRN nausea and 09/27/24 tablet (Compazine) vomiting #30 tabs ondansetron HCl 8 mg tablet See Rx Instructions .Route 10/06/24 .COMPLEX #90 tabs oxycodone 20 mg tablet 20 mg PO QID PRN pain 30 days #120 10/09/24 tabs dmyzuysiynwjlxd-discqxhwuqoba-GQ 1 20 ml PO Q4H PRN allergy symptoms 10/31/24 mg-2.5 mg-5 mg/5 mL oral solution #118 mL (Dimetapp DM Cold-Cough (PE)) sulfamethoxazole 800 1 tab PO Q12H #20 tabs 10/31/24 mg-trimethoprim 160 mg tablet (Bactrim DS) clindamycin HCl 300 mg capsule 300 mg PO Q6H 7 days #28 caps 11/02/24 Allergies Allergy/AdvReac Type Severity Reaction Status Date / Time amoxicillin Allergy Severe ALGY-Rash Verified 10/31/24 14:20 Penicillins Allergy Severe ALGY-Rash Verified 10/31/24 14:20 bupropion [From Wellbutrin] AdvReac Severe ADR-Itching Verified 10/31/24 14:20 PFSH ED 2 PFS: Medical History Diastolic heart failure Moderate aortic stenosis Acquired left foot drop Peripheral neuropathy Traumatic compression fracture of L5 vertebra Antineoplastic chemotherapy induced anemia History of radiation therapy Compression fx, thoracic spine Non-small cell lung cancer Hypertension Diabetes mellitus with hyperglycemia, without long-term current use of insulin Personal history of nicotine dependence Coronary artery disease COPD (chronic obstructive pulmonary disease) with emphysema Surgical History History of kyphoplasty (04/09/23) T7 kyphoplasty with biopsy of the T7 vertebral body and with radiofrequency ablation of T7 tumor Port-A-Cath in place Right chest wall 05/18/23 History of coronary artery stent placement History of cholecystectomy History of appendectomy Family History Other CAD (coronary artery disease) Cancer Hyperlipidemia Hypertension Denies family history of Bleeding disorder Social History Smoking and tobacco/nicotine status: current every day tobacco/nicotine user cigarettes Packs smoked per day: 2 [ Other cigarette details: smoked x 50+ years] Second hand smoke exposure: Yes Alcohol intake: current Alcohol intake frequency: holidays/special occasions only Substance/Drug Use: unknown Adopted: No Caregiver/support person: No Lives independently: Yes Household members: none Housing: House Marital status: Number of children: 1 Number of grandchildren: 3 service: No Current occupational status: retired Do you think of yourself as: Straight/Heterosexual Current gender identity: Male Physical Exam 2 Narrative: EXAM NARRATIVE: Patient is alert oriented no acute distress. His neck is supple. His speech is clear. His heart regular rhythm. His lung sounds are clear. His port is well- appearing with no erythema over it. His abdomen is soft had no tenderness or guarding on my exam. His extremities are warm well-perfused. He has strong intact pulses in his feet. Patient has some trace edema in his right leg but no tenderness and no erythema. He has erythema over the dorsum of his left foot and it tracks up the left leg to below the knee on the lateral aspect and some anterior. No calf tenderness. He has 1+ pitting edema in the left leg below the knee. He moves it freely and has no pain with movement. He moves the ankle without pain. He has some limited movement in the left foot compared to the right which she states is chronic. Course 2 Vital Signs: Vital signs: Vital Signs Temperature 97.9 F 11/02/24 14:13 Pulse Rate 76 11/02/24 15:49 Respiratory Rate 20 H 11/02/24 14:13 Blood Pressure 110/56 11/02/24 15:49 Pulse Oximetry 92 11/02/24 15:49 Oxygen Delivery Me thod Room Air 11/02/24 14:13 MDM - Extremity (Nontraumatic) Medical Decision Making Patient presents complaining of redness and pain in the left foot. Patient has what appears consistent with cellulitis. He has tenderness and erythema and warmth over the dorsum of the foot and tracking up the leg about [facility] up the Lower leg. He denies fever or systemic symptoms. Denies history of MRSA. Patient denies trauma or injury. I will x-ray his left foot for occult fracture. Osteomyelitis must be considered as he does have a port however this would be less likely as he has clear findings of erythema over the foot and tracking up the leg consistent with cellulitis. Patient does have some mild edema as well so we will obtain ultrasound of the leg to evaluate for DVT. I ordered CBC to check his counts and CMP to check his kidney function.Patient states he has mild reaction to penicillins in the past. He is uncertain if he is had cephalosporins in the past but wants to try Cephalosporins after informed discussion of treatment options and alternatives. I ordered Rocephin 1 g IV and blood cultures x 2. Patient does not appear septic. He is nontoxic-appearing alert talkative.If no DVT and he does not have severe To lobe neutropenia patient feels comfortable with outpatient management. I advised potential for progression and worsening of his condition and limits of plain film and ED evaluation. Advised need for close follow-up and if symptoms persist may need MRI of the foot to evaluate further however at this point cellulitis would be the most probable cause. Patient's had symptoms for about a week and has not had rapid progression making more aggressive organisms less likely. Advise close follow-up with his doctor and signs of worsening to watch and return for. History is obtained from the patient and the patient's who acts as alternative historian and is able to describe his leg and his past history as well. White blood cell count is normal. Creatinine within normal limits. Patient is x-ray of the left foot negative for acute process per radiology. Ultrasound negative for DVT. Patient is requesting outpatient management. He wants to be discharged that he can get to his appointment for his CT scan. Will prescribe clindamycin 300 mg p.o. 4 times a day for 7 days. Advised patient risk of this including C. difficile among others and signs symptoms of worsening to watch and return for. Advised potential for progression of illness. Advised potential for developing deep space infection including osteomyelitis among others and signs symptoms of worsening to watch and return for an close outpatient follow- up. Patient agrees with plan after informed discussion. Lab Data 11/02/24 14:45 11/02/24 14:45 Radiology Impressions Foot X-Ray 11/02/24 14:33 IMPRESSION: No acute abnormality. Enthesophyte as above. Laboratory Results WBC 6.62 10^3/uL (3.29-11.43) 11/02/24 14:45 RBC 4.46 10^6/uL (3.85-5.65) 11/02/24 14:45 Hgb 12.40 g/dL (11.27-16.99) 11/02/24 14:45 Hct 38.4 % (37-53) 11/02/24 14:45 MCV 86.1 fl (82-101) 11/02/24 14:45 MCH 27.8 pg (27-33) 11/02/24 14:45 MCHC 32.3 g/dL (30-55) 11/02/24 14:45 RDW 18.5 % (12.1-15.1) H 11/02/24 14:45 Plt Count 188 10^3/cmm (157-399) 11/02/24 14:45 MPV 8.6 fL (7.4-10.4) 11/02/24 14:45 Neut % (Auto) 53.5 % 11/02/24 14:45 Lymph % (Auto) 28.1 % 11/02/24 14:45 [facility] [place] % (Auto) 13.7 % 11/02/24 14:45 Eos % (Auto) 2.7 % 11/02/24 14:45 Baso % (Auto) 0.5 % 11/02/24 14:45 Neut # (Auto) 3.54 10^3/uL (1.8-7.7) 11/02/24 14:45 Lymph # (Auto) 1.9 10^3/uL (0.8-4.8) 11/02/24 14:45 [facility] [place] [facility] # (Auto) 0.9 10^3/uL (0.2-0.9) 11/02/24 14:45 Eos # (Auto) 0.2 10^3/uL (0.0-0.8) 11/02/24 14:45 Baso # (Auto) 0.0 10^3/uL (0.0-0.1) 11/02/24 14:45 Nucleated RBC % (auto) 0 % 11/02/24 14:45 Nucleated RBCs # 0.0 /100WBC 11/02/24 14:45 Sodium 130 mmol/L (136-145) L 11/02/24 14:45 Potassium 3.9 mmol/L (3.5-5.1) 11/02/24 14:45 Chloride 90 mmol/L (98-107) L 11/02/24 14:45 Carbon Dioxide 27 mmol/L (22-29) 11/02/24 14:45 Anion Gap 16.9 (5-19) 11/02/24 14:45 BUN 8 mg/dL (8-23) 11/02/24 14:45 Creatinine 1.0 mg/dL (0.7-1.2) 11/02/24 14:45 GFR Calculation 74.3 mL/min (90-130) L 11/02/24 14:45 Glucose 90 mg/dL (65-115) 11/02/24 14:45 Calculated Osmolality 268 mOsm/kg (285-295) L 11/02/24 14:45 Calcium 9.1 mg/dL (8.5-10.5) 11/02/24 14:45 Total Bilirubin 0.6 mg/dL (0.15-1.2) 11/02/24 14:45 AST 44 U/L (0-40) H 11/02/24 14:45 ALT 53 U/L (0-41) H 11/02/24 14:45 Alkaline Phosphatase 197 U/L (40-130) H 11/02/24 14:45 Total Protein 7.1 g/dL (6.6-8.7) 11/02/24 14:45 Albumin 3.5 g/dL (3.5-5.2) 11/02/24 14:45 Globulin 3.6 g/dL (1.3-4.6) 11/02/24 14:45 XR interpretation done by ED provider, pending radiology final review Discharge Plan Discharge Patient Disposition: Home Clinical Impression: Lower extremity edema, Cellulitis Condition: Stable Prescriptions: New clindamycin HCl 300 mg capsule 300 mg PO Q6H 7 Days Qty: 28 0RF No Action (DME) blood-glucose meter [[employer] Ultra2 Meter] Kit See Rx Instructions .Route Qty: 1 0RF Rx Instructions: As directed (DME) lancets [[facility] MedicalTouch UltraSoft Lancets] Misc See Rx Instructions .Route Qty: 100 2RF Rx Instructions: one day gabapentin 300 mg capsule 300 mg PO BID sennosides-docusate sodium [Senna Plus] 8.6-50 mg tablet 1 tab-cap PO DAILY PRN (Reason: Constipation) Patient Comments: as needed metoprolol tartrate 25 mg tablet 25 mg PO BID Qty: 60 5RF atorvastatin [Lipitor] 40 mg tablet 40 mg PO DAILY Qty: 30 5RF citalopram 20 mg tablet 20 mg PO DAILY Qty: 30 2RF Rx Instructions: to improve mood note dose increase folic acid 1 mg tablet 1 mg PO DAILY Qty: 30 11RF dexamethasone 4 mg tablet 4 mg PO BID Qty: 20 2RF Rx Instructions: 1 tablet twice daily the day before chemo and 1 tablet twice daily the day after chemo prochlorperazine maleate [Compazine] 10 mg tablet 10 mg PO Q6H PRN (Reason: nausea and vomiting) Qty: 30 6RF aspirin [Adult Low Dose Aspirin] 81 mg tablet,delayed release (DR/EC) 81 mg PO DAILY cyanocobalamin (vitamin B-12) 500 mcg tablet 500 mcg PO DAILY budesonide 0.25 mg/2 mL suspension for nebulization 0.25 mg inhalation BID sulfamethoxazole-trimethoprim [Bactrim DS] 800-160 mg tablet 1 tab PO Q12H Qty: 20 0RF Dimetapp DM Cold-Cough (PE) 1-2.5-5 mg/5 mL solution 20 ml PO Q4H PRN (Reason: allergy symptoms) Qty: 118 0RF (DME) OneTouch Ultra Test Strip See Rx Instructions .Route Qty: 50 5RF Rx Instructions: one daily (DME) Foot Drop AFO See Rx Instructions .Route .MEDSUPPLY Qty: 1 0RF Rx Instructions: As directed formoterol fumarate [Perforomist] 20 mcg/2 mL solution for nebulization 2 ml inhalation Q12H Qty: 120 5RF ergocalciferol (vitamin D2) 1,250 mcg (50,000 unit) capsule 1,250 mcg PO .weekly Qty: 4 2RF ondansetron HCl 8 mg tablet See Rx Instructions .ROUTE .COMPLEX Qty: 90 3RF Dose Instruction: TAKE ONE TABLET BY MOUTH THREE TIMES DAILY NEEDED FOR NAUSEA AND VOMITING Rx Instructions: TAKE ONE TABLET BY MOUTH THREE TIMES DAILY NEEDED FOR NAUSEA AND VOMITING oxycodone 20 mg tablet 20 mg PO QID PRN (Reason: pain) 30 Days Qty: 120 0RF lidocaine-prilocaine 2.5-2.5 % cream 1 applic topical PRN furosemide 40 mg tablet 40 mg PO QAM Rx Instructions: TAKE ONE TABLET BY MOUTH EVERY MORNING FOR EDEMA zolpidem [Ambien] 10 mg tablet 10 mg PO .at bedtime PRN (Reason: insomnea) Discharge Orders: Discharge ED (Routine); Ordered 11/02/24 Ordered By: Emilio Lawrence Activity Restrictions/Additional Instructions: Keep your legs elevated. Please come back if fever, progressive or worsening or spreading redness, fever, weakness, increased swelling in your legs, worsening pain, not improving, any worse or concerns. Please follow-up on your test results with your doctor. Coding Level of Care Code ED Senior Clerk for Britany Gonzalez
--- NOTE | 2024-11-02 14:33 | XR_ITS ---
WS: [id number] XR foot LT 2V [id number] REASON FOR EXAM: pain FINDINGS: No fracture or focal bone lesion. No periosteal reaction or bone erosion. Joint spaces of the forefoot, midfoot, and hindfoot are intact and relatively well preserved. Large posterior calcaneal enthesophyte. XR/XR foot LT 2V [id number] IMPRESSION: No acute abnormality. Enthesophyte as above.
[2024-11-02 14:56] LABS: Basophils % 0.5 %; Eosinophils # 0.2 10^3/uL (0.0-0.8); Eosinophils % 2.7 %; Hematocrit 38.4 % (37-53); Lymphocytes # 1.9 10^3/uL (0.8-4.8); Lymphocytes % 28.1 %; Mean Corpuscular HGB Conc 32.3 g/dL (30-55); Mean Corpuscular Hemoglobin 27.8 pg (27-33); Mean Corpuscular Volume 86.1 fl (82-101); Mean Platelet Volume 8.6 fL (7.4-10.4); Monocytes # 0.9 10^3/uL (0.2-0.9); Monocytes % 13.7 %; Neutrophils # 3.54 10^3/uL (1.8-7.7); Neutrophils % 53.5 %; Nucleated Red Blood Cells % 0 %; Platelet Count 188 10^3/cmm (157-399); Red Blood Count 4.46 10^6/uL (3.85-5.65); Red Cell Distribution Width 18.5 % (12.1-15.1); White Blood Count 6.62 10^3/uL (3.29-11.43)
[2024-11-02 15:13] LABS: Alanine Aminotransferase 53 U/L (0-41); Albumin Level 3.5 g/dL (3.5-5.2); Alkaline Phosphatase 197 U/L (40-130); Anion Gap 16.9 (5-19); Aspartate Amino Transferase 44 U/L (0-40); Blood Urea Nitrogen 8 mg/dL (8-23); Calcium 9.1 mg/dL (8.5-10.5); Carbon Dioxide 27 mmol/L (22-29); Chloride 90 mmol/L (98-107); Creatinine Clr Calc Pharmacy 82.3032; Globulin 3.6 g/dL (1.3-4.6); Glomerular Filtration Rate 74.3 mL/min (90-130); Glucose 90 mg/dL (65-115); Osmolality Calculated 268 mOsm/kg (285-295); Potassium 3.9 mmol/L (3.5-5.1); Sodium 130 mmol/L (136-145); Total Bilirubin 0.6 mg/dL (0.15-1.2); Total Protein 7.1 g/dL (6.6-8.7)
[2024-11-02] MEDS: cefTRIAXone 1,000 mg SDV 1000 MG IVP (15:38)
--- NOTE | 2024-11-02 15:44 | PC.NURSE ---
per yenifer in ct okay to leave peripheral line in she will use that for his outpatient ct that is scheduled. removed port-a-cath access prior to discharge.
[2024-11-02 15:49] VITALS: BP 110/56; PULSE 76; O2SAT 92
== END 2024-11-02 15:51 | disposition home or self-care (01) ==
PROVIDERS: Emergency Provider Emergency Medicine
DX: R60.0 Localized edema (principal); L03.116 Cellulitis of left lower limb; Z79.82 Long term (current) use of aspirin; F17.210 Nicotine dependence, cigarettes, uncomplicated; I11.0 Hypertensive heart disease with heart failure; I50.30 Unspecified diastolic (congestive) heart failure; J44.9 Chronic obstructive pulmonary disease, unspecified; E11.42 Type 2 diabetes mellitus with diabetic polyneuropathy; Z85.118 Personal history of other malignant neoplasm of bronchus and lung
CPT/HCPCS: 12345; 36415; 73620; 80053; 85025; 87040; 93971; 96374; 99284; J0696

== ENCOUNTER 2024-11-14 07:45 | Oncology outpatient (recurring) (ONCR) | payer MEDICARE, SELFPAY ==
[2024-11-02] MEDS: iohexol 350 mg/mL 500 mL Btl (per mL) IV (16:00)
--- NOTE | 2024-11-02 16:15 | CTR_ITS ---
PROCEDURE INFORMATION: Exam: CT Chest With Contrast; Diagnostic Exam date and time: 11/02/2024 3:56 PM Age: 69 years old Clinical indication: Condition or disease; Other: Lung cancer; Prior surgery; Surgery date: 6+ months; Surgery type: Port, gb, appy, coronary artery stent; Patient HX: Lung mets, spine TECHNIQUE: Imaging protocol: Diagnostic computed tomography of the chest with contrast. Radiation optimization: All CT scans at this facility use at least one of these dose optimization techniques: automated exposure control; mA and/or kV adjustment per patient size (includes targeted exams where dose is matched to clinical indication); or iterative reconstruction. Contrast material: OMNI 350; Contrast volume: 100 ml; Contrast route: INTRAVENOUS (IV); COMPARISON: PT PET skull to thigh SUBS [id number] 09/08/2024 2:24 PM RADIATION DOSE METRICS: Total DLP (mGy-cm): 1081.38 FINDINGS: Lungs: There are changes of emphysema. There is a nodular density involving the inferior posterior right upper lobe measuring 17.7 mm in size (series 4, image 31) previously measuring 12 mm. Nodular density medially is not well-defined but appears to measure 10 mm in size (previously 10 mm).There is atelectasis at the right lung base. Peripheral linear and nodular type density involving the left upper lobe (series 4, image 22) is less nodular on today's exam. Linear scarring or atelectasis extending into the lingula has also improved. There has been significant interval improvement with regards to airspace disease involving the left lower lobe although mild airspace disease persists. Pleural spaces: Unremarkable. No pneumothorax. No pleural effusion. Heart: Unremarkable. No cardiomegaly. No pericardial effusion. Lymph nodes: Unremarkable. No enlarged lymph nodes. Vasculature: The thoracic aorta is normal in caliber without aneurysm or dissection. There is calcified plaque involving the aorta and coronary vessels. Bones/joints: Treated compression deformity noted at T7. No blastic or lytic bony lesions are otherwise appreciated. Please note that the bony metastasis seen on prior PET scan or primarily noted on the nuclear medicine portion of the scan and were not well-visualized on the CT portion of the scan. Soft tissues: Unremarkable. COMMENTS: The presence of pulmonary emphysema on CT is an independent risk factor for lung cancer. In the absence of a history or active diagnosis of lung cancer, it is recommended that this patient with emphysema be evaluated for enrollment in a low dose CT lung cancer screening program. PROCEDURE INFORMATION: Exam: CT Abdomen And Pelvis With Contrast Exam date and time: 11/02/2024 3:56 PM Age: 69 years old Clinical indication: Condition or disease; Other: Lung cancer; Prior surgery; Surgery date: 6+ months; Surgery type: Port, gb, appy, coronary artery stent; Patient HX: Lung mets, spine TECHNIQUE: Imaging protocol: Computed tomography of the abdomen and pelvis with contrast. Radiation optimization: All CT scans at this facility use at least one of these dose optimization techniques: automated exposure control; mA and/or kV adjustment per patient size (includes targeted exams where dose is matched to clinical indication); or iterative reconstruction. Contrast material: OMNI 350; Contrast volume: 100 ml; Contrast route: INTRAVENOUS (IV); COMPARISON: PT PET skull to thigh SUBS [id number] 09/08/2024 2:24 PM RADIATION DOSE METRICS: Total DLP (mGy-cm): 1081.38 FINDINGS: Diaphragm: There may be a small hiatal hernia. Liver: There are numerous low-density lesions within the liver which appear to be increased in size when compared to prior PET scan. Gallbladder and biliary ducts: There are surgical clips within the gallbladder fossa. Pancreas: Normal. No ductal dilation. Spleen: Normal. No splenomegaly. Adrenal glands: Normal. No mass. Kidneys and ureters: There are small nonobstructing renal calculi on the right. There are small benign-appearing renal cysts. Stomach and bowel: There are scattered colonic diverticula. No dilated loops of large or small bowel is appreciated. No bowel wall thickening is noted. There is a moderate amount of stool within the colon. Appendix: The appendix is not definitely identified. Intraperitoneal space: Unremarkable. No free air. No significant fluid collection. Vasculature: The aorta is normal in caliber. There is calcified plaque involving the aorta and its branch vessels. Lymph nodes: Unremarkable. No enlarged lymph nodes. Urinary bladder: Unremarkable as visualized. Reproductive: Unremarkable as visualized. Bones/joints: No blastic or lytic bony lesions are appreciated. Again, please note that the bony metastatic lesion seen on prior PET scan or most notable on the PET portion of the scan and not on the accompanying CT. There are old compression deformities involving L1 and L5. Soft tissues: Unremarkable. CT/CT chest abdpel w/*[id number] IMPRESSION: 1. Nodular density involving the inferior right upper lobe slightly larger on today's exam the more medial nodular density is not significantly changed. 2. Somewhat peripheral and nodular density involving the left upper lobe has improved. 3. Airspace disease involving the left lower lobe improved. IMPRESSION: 1. Metastatic disease to the liver. This appears to be worse on today's exam when compared to prior PET scan. 2. Fecal stasis. COMMENTS: Consistent with the [employer]'s Incidental Findings Committee white paper (J Am Tiara Radiol 2018): Any incidental renal lesion less than 1 cm or classified as too small to characterize, or any incidental cystic renal lesion characterized as simple-appearing, is likely benign. No follow-up imaging is recommended for these lesions per consensus recommendations based on imaging criteria.
[2024-11-14 08:05] LABS: Basophils % 0.4 %; Eosinophils % 0.1 %; Hematocrit 35.4 % (37-53); Lymphocytes # 1.6 10^3/uL (0.8-4.8); Lymphocytes % 22.6 %; Mean Corpuscular HGB Conc 32.2 g/dL (30-55); Mean Corpuscular Hemoglobin 28.1 pg (27-33); Mean Corpuscular Volume 87.2 fl (82-101); Mean Platelet Volume 8.7 fL (7.4-10.4); Monocytes # 0.7 10^3/uL (0.2-0.9); Monocytes % 10.3 %; Neutrophils # 4.68 10^3/uL (1.8-7.7); Neutrophils % 65.5 %; Nucleated Red Blood Cells % 0 %; Platelet Count 180 10^3/cmm (157-399); Red Blood Count 4.06 10^6/uL (3.85-5.65); Red Cell Distribution Width 18.1 % (12.1-15.1); White Blood Count 7.16 10^3/uL (3.29-11.43)
[2024-11-14 08:21] LABS: Alanine Aminotransferase 22 U/L (0-41); Albumin Level 3.5 g/dL (3.5-5.2); Alkaline Phosphatase 191 U/L (40-130); Anion Gap 15.3 (5-19); Aspartate Amino Transferase 29 U/L (0-40); Blood Urea Nitrogen 10 mg/dL (8-23); Calcium 8.6 mg/dL (8.5-10.5); Carbon Dioxide 29 mmol/L (22-29); Chloride 92 mmol/L (98-107); Creatinine Clr Calc Pharmacy 511.5655; Globulin 3.4 g/dL (1.3-4.6); Glomerular Filtration Rate 96.1 mL/min (90-130); Glucose 101 mg/dL (65-115); Osmolality Calculated 273 mOsm/kg (285-295); Potassium 4.3 mmol/L (3.5-5.1); Sodium 132 mmol/L (136-145); Total Bilirubin 0.3 mg/dL (0.15-1.2); Total Protein 6.9 g/dL (6.6-8.7)
[2024-11-14 08:56] LABS: Estmated Average Glucose 123; Hemoglobin A1C 5.9 % (4.0-6.0)
== END 2024-11-17 23:59 | disposition home or self-care (01) ==
PROVIDERS: Nurse Practitioner; Visit Provider Internal Medicine Medical Oncology
DX: Z53.9 Procedure and treatment not carried out, unspecified reason; C34.12 Malignant neoplasm of upper lobe, left bronchus or lung; C79.51 Secondary malignant neoplasm of bone; C78.7 Secondary malignant neoplasm of liver and intrahepatic bile duct; E11.9 Type 2 diabetes mellitus without complications; Z87.891 Personal history of nicotine dependence; Z79.899 Other long term (current) drug therapy
CPT/HCPCS: 71260; 74177; 80053; 83036; 85025; 99214

== ENCOUNTER 2024-12-12 09:00 | Oncology outpatient (recurring) (ONCR) | payer MEDICARE, SELFPAY ==
[2024-12-01 10:11] LABS: Basophils # 0.1 10^3/uL (0.0-0.1); Basophils % 1.2 %; Eosinophils # 0.2 10^3/uL (0.0-0.8); Eosinophils % 2.4 %; Hematocrit 37.3 % (37-53); Lymphocytes # 1.7 10^3/uL (0.8-4.8); Lymphocytes % 17.7 %; Mean Corpuscular HGB Conc 31.6 g/dL (30-55); Mean Corpuscular Hemoglobin 28.1 pg (27-33); Mean Corpuscular Volume 88.8 fl (82-101); Mean Platelet Volume 8.7 fL (7.4-10.4); Monocytes # 0.8 10^3/uL (0.2-0.9); Monocytes % 8.2 %; Neutrophils # 6.82 10^3/uL (1.8-7.7); Neutrophils % 69.9 %; Nucleated Red Blood Cells % 0 %; Platelet Count 154 10^3/cmm (157-399); White Blood Count 9.76 10^3/uL (3.29-11.43)
[2024-12-01 10:33] LABS: Alanine Aminotransferase 29 U/L (0-41); Albumin Level 3.5 g/dL (3.5-5.2); Alkaline Phosphatase 207 U/L (40-130); Anion Gap 10.4 (5-19); Aspartate Amino Transferase 32 U/L (0-40); Blood Urea Nitrogen 10 mg/dL (8-23); Calcium 8.6 mg/dL (8.5-10.5); Carbon Dioxide 31 mmol/L (22-29); Chloride 96 mmol/L (98-107); Globulin 3.2 g/dL (1.3-4.6); Glomerular Filtration Rate 112.1 mL/min (90-130); Glucose 119 mg/dL (65-115); Osmolality Calculated 276 mOsm/kg (285-295); Potassium 4.4 mmol/L (3.5-5.1); Sodium 133 mmol/L (136-145); Total Bilirubin 0.3 mg/dL (0.15-1.2); Total Protein 6.7 g/dL (6.6-8.7)
== END 2024-12-15 23:59 | disposition home or self-care (01) ==
PROVIDERS: Nurse Practitioner; Visit Provider Internal Medicine Medical Oncology
DX: C34.12 Malignant neoplasm of upper lobe, left bronchus or lung; C79.51 Secondary malignant neoplasm of bone; C78.7 Secondary malignant neoplasm of liver and intrahepatic bile duct; F17.210 Nicotine dependence, cigarettes, uncomplicated; Z71.6 Tobacco abuse counseling; J18.9 Pneumonia, unspecified organism; Z79.899 Other long term (current) drug therapy; Z53.9 Procedure and treatment not carried out, unspecified reason
CPT/HCPCS: 36591; 80053; 85025; 99214

== ENCOUNTER → 2024-12-13 13:04 | Outpatient (BNVA) | payer MEDICARE, SELFPAY | PROVIDERS: PCP Internal Medicine Medical Oncology; Visit Provider Nurse Practitioner | DX: C78.7 Secondary malignant neoplasm of liver and intrahepatic bile duct (principal); C34.12 Malignant neoplasm of upper lobe, left bronchus or lung; C79.51 Secondary malignant neoplasm of bone | CPT/HCPCS: 85025; 85610 ==

== ENCOUNTER 2024-12-18 14:20 | Emergency (ER) | payer MEDICARE, SELFPAY ==
[2024-12-18 14:24] VITALS: BP 113/66; PULSE 84; TEMP 36.5; O2SAT 94; BMI 27.8
--- NOTE | 2024-12-18 14:30 | ECG_ITS ---
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 Measurements Intervals [place] Rate: 81 P: 7 [place]: 124 QRS: 39 QRSD: 134 T: 62 QT: 409 QTc: 476 Interpretive Statements SINUS RHYTHM RIGHT BUNDLE BRANCH BLOCK [120+ ms QRS DURATION, UPRIGHT V1, 40+ ms S IN I/aVL/V4/V5/V6] Compared to ECG 10/30/2024 12:40:49 No significant changes Electronically Signed On 12-23-2024 18:16:32 ART PREPARATOR by Owen Patterson M.D. [email or web address]
--- NOTE | 2024-12-18 16:01 | XRR_ITS ---
PROCEDURE INFORMATION: Exam: XR Chest Exam date and time: 12/18/2024 5:05 PM Age: 69 years old Clinical indication: Shortness of breath; Prior surgery; Surgery date: 6+ months; Surgery type: Port cardiac stent; Additional info: SOB TECHNIQUE: Imaging protocol: Radiologic exam of the chest. Views: 1 view. COMPARISON: CT chest abdpel w/*[id number] 11/02/2024 3:56 PM FINDINGS: Tubes, catheters and devices: Right-sided MediPort with its distal tip in the superior atriocaval junction. Lungs: Bibasilar opacities reflecting atelectasis and/or infiltrates. The remaining lungs are clear. Pleural spaces: Small bilateral pleural effusions. Heart/Mediastinum: Unremarkable. No cardiomegaly. Bones/joints: Unremarkable. XR/XR chest 1V portable [id number] IMPRESSION: As above.
[2024-12-18 17:35] LABS: Basophils % 0.1 %; Eosinophils % 0.1 %; Hematocrit 42.6 % (37-53); Lymphocytes # 0.7 10^3/uL (0.8-4.8); Lymphocytes % 7.5 %; Mean Corpuscular HGB Conc 31.5 g/dL (30-55); Mean Corpuscular Hemoglobin 28.1 pg (27-33); Mean Corpuscular Volume 89.3 fl (82-101); Mean Platelet Volume 9.2 fL (7.4-10.4); Monocytes # 0.6 10^3/uL (0.2-0.9); Monocytes % 6.2 %; Neutrophils # 8.06 10^3/uL (1.8-7.7); Nucleated Red Blood Cells % 0 %; Platelet Count 131 10^3/cmm (157-399); Red Blood Count 4.77 10^6/uL (3.85-5.65); Red Cell Distribution Width 17.9 % (12.1-15.1); White Blood Count 9.48 10^3/uL (3.29-11.43)
[2024-12-18 17:49] LABS: INR 0.93 (0.8-1.2)
[2024-12-18 18:06] LABS: Alanine Aminotransferase 86 U/L (0-41); Albumin Level 3.3 g/dL (3.5-5.2); Alkaline Phosphatase 302 U/L (40-130); Anion Gap 20.6 (5-19); Aspartate Amino Transferase 75 U/L (0-40); Blood Urea Nitrogen 20 mg/dL (8-23); Calcium 8.7 mg/dL (8.5-10.5); Carbon Dioxide 29 mmol/L (22-29); Chloride 88 mmol/L (98-107); Globulin 2.8 g/dL (1.3-4.6); Glomerular Filtration Rate 112.1 mL/min (90-130); Glucose 118 mg/dL (65-115); NT Pro B Type Natriuretic Pept 1406 pg/mL (0-125); Osmolality Calculated 282 mOsm/kg (285-295); Potassium 3.6 mmol/L (3.5-5.1); Sodium 134 mmol/L (136-145); Total Bilirubin 1.6 mg/dL (0.15-1.2); Total Protein 6.1 g/dL (6.6-8.7)
== END 2024-12-18 17:35 | disposition left against medical advice (07) ==
LOC: ER 14:24
PROVIDERS: Emergency Medicine; Emergency Provider Family Medicine; PCP Internal Medicine Medical Oncology
DX: R94.31 Abnormal electrocardiogram [ECG] [EKG] (principal); R06.02 Shortness of breath
CPT/HCPCS: 36415; 71045; 80053; 83880; 85025; 85610; 93005; 99285

== ENCOUNTER 2024-12-21 09:52 | Inpatient (IN) | payer MEDICARE, SELFPAY ==
[2024-12-21] VITALS (11 sets, daily range): BP systolic 101–125; BP diastolic 61–73; PULSE 60–109; RESP 16–28; TEMP 36.5–36.8; O2SAT 84–99; BMI 29.1; BMI 29.4
--- NOTE | 2024-12-21 09:57 | ECG_ITS ---
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 Measurements Intervals [place] Rate: 106 P: -22 [place]: 114 QRS: 5 QRSD: 126 T: 109 QT: 359 QTc: 478 Interpretive Statements SINUS TACHYCARDIA WITH SHORT [place] INTERVAL RIGHT BUNDLE BRANCH BLOCK [120+ ms QRS DURATION, UPRIGHT V1, 40+ ms S IN I/aVL/V4/V5/V6] INFERIOR MYOCARDIAL INFARCTION , OF INDETERMINATE AGE [40+ ms Q WAVE AND/OR ST/T ABNORMALITY IN II/aVF] MODERATE T-WAVE ABNORMALITY, CONSIDER LATERAL ISCHEMIA [-0.1+ mV T-WAVE IN I/aVL/V5/V6] Compared to ECG 12/18/2024 14:36:26 Short [place] interval now present Myocardial infarct finding now present Possible ischemia now present Sinus rhythm no longer present Electronically Signed On 12-23-2024 18:05:51 AUDIT OFFICER by Owen Patterson M.D. [id number]
--- NOTE | 2024-12-21 10:11 | XR_ITS ---
WS: [id number] XR chest 1V portable [id number] REASON FOR EXAM: sob FINDINGS: Compared to the previous examination of 12/18/2024 vague peripheral groundglass density appears to be developing with minimal reticular interstitial lung opacities parabronchial cuffing. There is mild blunting of the right costophrenic angle. No other interval change or new finding. XR/XR chest 1V portable [id number] IMPRESSION: Interval development of abnormality in the right lung which may be pneumonitis or possibly early congestive failure.
--- NOTE | 2024-12-21 10:34 | CT_ITS ---
WS: [id number] CTA CHEST WITH CT ABDOMEN AND PELVIS. HISTORY: Severe short of breath, abdominal bloating. 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 TECHNIQUE: CT angiogram is performed through the chest. Additional imaging is performed through the abdomen and pelvis with IV contrast. Sagittal and coronal reformats have been submitted. MIP imaging also reviewed. All CT scans at [facility] use at least one of these dose optimization techniques: automated exposure control; mA and/or kV adjustment per patient size (includes targeted exams where dose is matched to clinical indication); or iterative reconstruction. Contrast: Omnipaque 350; 95 cc IV. DLP: 393.62 mGy.cm COMPARISON: 11/02/2024 Chest CTA: Good opacification of the pulmonary arteries. No filling defect or pulmonary embolism is identified. Dilated pulmonary artery. Atherosclerosis aorta with mild ectasia. No pneumothorax. Bibasilar atelectasis. Small RIGHT pleural effusion. Tree-in-bud airspace disease RIGHT lower lobe and RIGHT upper lobe along the fissure. There is a more discrete subpleural nodule in the RIGHT upper lobe with a tree-in-bud airspace disease. This nodule measures 12 x 19 mm. This nodule is also described on 11/02/2024 and PET/CT of 09/08/2024. Positive on prior PET/CT imaging. Not significantly increased in size. Benign granulomata. Enlarging hilar lymphadenopathy. Largest lymph node may be a cluster of lymph nodes at the RIGHT hilum measuring 2.8 x 1.7 cm. Additional bronchovascular soft tissue thickening extends into the RIGHT lower lobe. Enlarging subcarinal lymph node measures 1.9 cm. Mild cardiomegaly. Abdomen CT: Markedly enlarged liver with extensive metastatic disease which has progressed since 11/02/2024. New perihepatic fluid. Portal vein and SMV are intact. Gallbladder has been surgically removed. Normal spleen with granulomata. Diffuse pancreatic atrophy. No common bile duct or pancreatic duct dilatation. Bilateral adrenal gland nodularity and thickening. Negative on recent PET/CT. No renal obstruction. LEFT renal cyst. No solid mass. Moderate atherosclerosis aorta. No aneurysm. Stomach is not distended. Stomach is being slightly compressed by the enlarged liver. No small bowel obstruction. Mild diffuse constipation. Free fluid extends along the RIGHT paracolic gutter into the pelvis. Mesenteric edema and subcutaneous edema. No free air. Pelvic CT: Small amount of free fluid in the pelvis. Negative urinary bladder. RIGHT inguinal canal contains fat. Anterior wedging of T6 and T7. Prior vertebroplasty at T7. Suspect metastatic disease in the T6 and T7 vertebral bodies. Additional anterior wedging of L1. Patient has known metastatic disease throughout the skeleton better visualized on the PET/CT of 09/08/2024. CT/CT angio chest w abd pel w con IMPRESSION: 1. No pulmonary embolism. 2. Increased in size and number of bilateral hilar lymphadenopathy. Suspicious for progression of metastatic disease. 3. Stable PET/CT positive nodule RIGHT upper lobe. 4. New tree in airspace disease in the RIGHT upper and RIGHT lower lobes consi stent with endobronchial pneumonia. 5. Significant progression of extensive metastatic liver disease since 11/02/19 25. Marked hepatic enlargement. 6. Development of ascites since the prior study. 7. No renal obstruction. 8. Patient has known metastatic bone disease which was better described and vi sualized by PET/CT imaging. 9. Diffuse soft tissue anasarca. 10. New small RIGHT pleural effusion with bibasilar atelectasis.
[2024-12-21 10:40] LABS: ABG PH Result 7.48 (7.35-7.45); Alveolar-Arterial Oxygen Gradi 2.9 mmHg (5-10); Arterial Blood Gas Hematocrit 42.9 % (42-52); Blood Gas Allen Test Pos; Blood Gas Operator Identificat WALCI; Blood Gas Sample Site Brachial, right; Blood Gas Sample Type Arterial; HCO3 ABG 40.1 mmol/L (22-26); HGB O2 Sat 89.8 % (95-100); Ionized Calcium Level - ABG 1.1 mmol/L (1.1-1.4); Methemoglobin < 0.0 % (0.4-1.5); Oxygen Device NRB; PO2 ABG 62.2 mmHg (80.0-100.0); Potassium Level - ABG 3.1 mmol/L (3.5-5.0)
--- NOTE | 2024-12-21 10:50 | ED_ITS ---
HPI - Weakness 2 General: Chief complaint: Weakness Stated complaint: weakness Time Seen by Provider: 12/21/24 10:03 Source: patient Mode of arrival: ambulatory Limitations: no limitations History of Present Illness: 69-year-old male has multiple medical is sues he has a history of cancer with mets he also has cirrhosis he states that he has been having increasing weakness he has been having shortness of breath and abdominal swelling. Patient states he wears 4 L at baseline patient was placed on a nonrebreather here. He denies any fevers or cough that of increased Associated symptoms: Denies chest pain, chills, fever(s), headache(s), nausea or vomiting Review of Systems 2 Const: Denies: fever(s), chills, body aches or change in appetite ENMT: Denies: throat pain or dental pain Card: Denies: chest pain Resp: Reports: dyspnea GI: Denies: abdominal pain, nausea, vomiting or diarrhea Musc: Reports: extremity swelling; Denies: neck pain or back pain Skin/Breast: Denies: rash Neuro: Denies: headache(s) PFSH ED 2 PFSH: Medical History Diastolic heart failure Moderate aortic stenosis Acquired left foot drop Peripheral neuropathy Traumatic compression fracture of L5 vertebra Antineoplastic chemotherapy induced anemia History of radiation therapy Compression fx, thoracic spine Non-small cell lung cancer Hypertension Diabetes mellitus with hyperglycemia, without long-term current use of insulin Personal history of nicotine dependence Coronary artery disease COPD (chronic obstructive pulmonary disease) with emphysema Surgical History History of kyphoplasty (04/09/23) T7 kyphoplasty with biopsy of the T7 vertebral body and with radiofrequency ablation of T7 tumor Port-A-Cath in place Right chest wall 05/18/23 History of coronary artery stent placement History of cholecystectomy History of appendectomy Family History Other CAD (coronary artery disease) Cancer Hyperlipidemia Hypertension Denies family history of Bleeding disorder Social History Smoking and tobacco/nicotine status: current some day tobacco/nicotine user cigarettes Packs smoked per day: 2 [ Other cigarette details: smoked x 50+ years] Second hand smoke exposure: Yes Alcohol intake: current Alcohol intake frequency: holidays/special occasions only Substance/Drug Use: unknown Adopted: No Caregiver/support person: No Lives independently: Yes Household members: none Housing: House Marital status: Number of children: 1 Number of grandchildren: 3 service: No Current occupational status: retired Do you think of yourself as: Straight/Heterosexual Current gender identity: Male Course 2 Vital Signs: Vital signs: Vital Signs Temperature 98.2 F 12/21/24 09:55 Pulse Rate 89 12/21/24 16:27 Respiratory Rate 18 12/21/24 13:11 Blood Pressure 104/61 12/21/24 16:27 Pulse Oximetry 89 L 12/21/24 16:27 Oxygen Delivery Me thod Nasal Cannula 12/21/24 16:27 Oxygen Flow Rate 6 12/21/24 16:27 Fraction of Inspir ed Oxygen 75 12/21/24 13:09 MDM - Weakness Medical Decision Making Patient presents here with increased shortness of breath he is requiring 6 to 7 L of oxygen here he typically wears 3 CT shows possible pneumonia he has extensive cancer as well. I spoke to hospitalist will admit at this time for his hypoxia and pneumonia Medical Records I reviewed the patient's medical records. Lab Data I reviewed the patient's lab results. 12/21/24 11:10 12/21/24 11:10 Radiology Impressions Chest X-Ray 12/21/24 10:11 IMPRESSION: Interval development of abnormality in the right lung which may be pneumonitis or possibly early congestive failure. Chest/Abdomen/Pelvis CT 12/21/24 10:34 IMPRESSION: 1. No pulmonary embolism. 2. Increased in size and number of bilateral hilar lymphadenopathy. Suspicious for progression of metastatic disease. 3. Stable PET/CT positive nodule RIGHT upper lobe. 4. New tree in airspace disease in the RIGHT upper and RIGHT lower lobes consistent with endobronchial pneumonia. 5. Significant progression of extensive metastatic liver disease since 11/02/2024. Marked hepatic enlargement. 6. Development of ascites since the prior study. 7. No renal obstruction. 8. Patient has known metastatic bone disease which was better described and visualized by PET/CT imaging. 9. Diffuse soft tissue anasarca. 10. New small RIGHT pleural effusion with bibasilar atelectasis. Laboratory Results WBC 7.99 10^3/uL (3.29-11.43) 12/21/24 11:10 RBC 4.89 10^6/uL (3.85-5.65) 12/21/24 11:10 Hgb 13.80 g/dL (11.27-16.99) 12/21/24 11:10 Hct 43.5 % (37-53) 12/21/24 11:10 MCV 89.0 fl (82-101) 12/21/24 11:10 MCH 28.2 pg (27-33) 12/21/24 11:10 MCHC 31.7 g/dL (30-55) 12/21/24 11:10 RDW 18.0 % (12.1-15.1) H 12/21/24 11:10 Plt Count 123 10^3/cmm (157-399) L 12/21/24 11:10 MPV 9.6 fL (7.4-10.4) 12/21/24 11:10 Neut % (Auto) 86.6 % 12/21/24 11:10 Lymph % (Auto) 6.0 % 12/21/24 11:10 Morris % (Auto) 6.3 % 12/21/24 11:10 Eos % (Auto) 0.0 % 12/21/24 11:10 Baso % (Auto) 0.1 % 12/21/24 11:10 Neut # (Auto) 6.92 10^3/uL (1.8-7.7) 12/21/24 11:10 Lymph # (Auto) 0.5 10^3/uL (0.8-4.8) L 12/21/24 11:10 Morris # (Auto) 0.5 10^3/uL (0.2-0.9) 12/21/24 11:10 Eos # (Auto) 0.0 10^3/uL (0.0-0.8) 12/21/24 11:10 Baso # (Auto) 0.0 10^3/uL (0.0-0.1) 12/21/24 11:10 Nucleated RBC % (auto) 0.3 % 12/21/24 11:10 Nucleated RBCs # 0.0 /100WBC 12/21/24 11:10 PT 13.90 SECONDS (12.1-14.9) 12/21/24 11:10 INR 1.00 (0.8-1.2) 12/21/24 11:10 Specimen Type Arterial 12/21/24 12:51 Sample Site Brachial, right 12/21/24 12:51 ABG pH 7.48 (7.35-7.45) H 12/21/24 12:51 ABG pCO2 56.9 mmHg (35-45) H 12/21/24 12:51 ABG pO2 91.9 mmHg (80.0-100.0) 12/21/24 12:51 ABG PO2/FiO2 Ratio 122 12/21/24 12:51 ABG HCO3 41.9 mmol/L (22-26) H 12/21/24 12:51 ABG O2 Saturation 97.4 12/21/24 12:51 ABG Base Excess 15.3 mmol/L (-2.0-2.0) H 12/21/24 12:51 Oswaldo Test Pos 12/21/24 12:51 A-a O2 Gradient 48.7 mmHg (5-10) H 12/21/24 12:51 Hematocrit 44.1 % (42-52) 12/21/24 12:51 Hgb O2 Saturation 94.4 % (95-100) L 12/21/24 12:51 Carboxyhemoglobin 2.1 %THgb (0.4-20.1) 12/21/24 12:51 Methemoglobin 1.0 % (0.4-1.5) 12/21/24 12:51 Total Hemoglobin 14.4 g/dL (14-18) 12/21/24 12:51 Sodium 140.0 mmol/L (131-143) 12/21/24 12:51 Potassium 3.0 mmol/L (3.5-5.0) L 12/21/24 12:51 Glucose 113.0 mg/dL (70-115) 12/21/24 12:51 Ionized Calcium 1.1 mmol/L (1.1-1.4) 12/21/24 12:51 O2 Delivery Device Bipap 12/21/24 12:51 O2 Liters/Min 15.0 % 12/21/24 10:29 FiO2 75.0 % 12/21/24 12:51 Senior Sustainability Consultant ID [employer] 12/21/24 12:51 Sodium 139 mmol/L (136-145) 12/21/24 11:10 Potassium 3.6 mmol/L (3.5-5.1) 12/21/24 11:10 Chloride 89 mmol/L (98-107) L 12/21/24 11:10 Carbon Dioxide 34 mmol/L (22-29) H 12/21/24 11:10 Anion Gap 19.6 (5-19) H 12/21/24 11:10 BUN 22 mg/dL (8-23) 12/21/24 11:10 Creatinine 0.5 mg/dL (0.7-1.2) L 12/21/24 11:10 GFR Calculation 165.4 mL/min (90-130) H 12/21/24 11:10 Glucose 127 mg/dL (65-115) H 12/21/24 11:10 Calculated Osmolality 293 mOsm/kg (285-295) 12/21/24 11:10 Calcium 8.6 mg/dL (8.5-10.5) 12/21/24 11:10 Total Bilirubin 3.7 mg/dL (0.15-1.2) H 12/21/24 11:10 AST 116 U/L (0-40) H 12/21/24 11:10 ALT 121 U/L (0-41) H 12/21/24 11:10 Alkaline Phosphatase 340 U/L (40-130) H 12/21/24 11:10 NT-Pro-B Natriuret Pep 2310 pg/mL (0-125) H 12/21/24 11:10 Total Protein 6.1 g/dL (6.6-8.7) L 12/21/24 11:10 Albumin 3.2 g/dL (3.5-5.2) L 12/21/24 11:10 Globulin 2.9 g/dL (1.3-4.6) 12/21/24 11:10 Influenza A (PCR) Negative (Negative) 12/21/24 10:50 Influenza Type B (PCR) Negative (Negative) 12/21/24 10:50 RSV (PCR) Negative (Negative) 12/21/24 10:50 SARS-CoV-2 (PCR) Negative (Negative) 12/21/24 10:50 All radiology interpretation(s) finalized by discharge Discharge Plan Discharge Patient Disposition: Admitted As Inpatient Clinical Impression: Acute respiratory failure with hypoxemia, Malignant neoplasm of upper lobe, left bronchus or lung, Secondary cancer of bone, Metastasis to liver, Pneumonia Condition: Stable Coding Level of Care Code ED Application Support Lead for Chg Fwd Related Data Home Medications ?Medication ?Instructions ?Recorded ?Confirmed aspirin 81 mg tablet,delayed 81 mg PO DAILY 10/17/24 0 12/21/24 release (Adult Low Dose Aspirin) budesonide 0.25 mg/2 mL suspension 0.25 mg inhalation BID 10/17/24 12/21/24 for nebulization cyanocobalamin (vitamin B-12) 500 500 mcg PO DAILY 12/21/24 mcg tablet Previous Rx's ?Medication ?Instructions ?Recorded formoterol fumarate 20 mcg/2 mL 2 ml inhalation Q12H # 120 mL 08/04/24 solution for nebulization (Perforomist) folic acid 1 mg tablet 1 mg PO DAILY #30 tabs 09/27 prochlorperazine maleate 10 mg 10 mg PO Q6H PRN nausea and 09/27/24 tablet (Compazine) vomiting #30 tabs ondansetron HCl 8 mg tablet See Rx Instructions .Route 10/06/24 .COMPLEX #90 tabs ergocalciferol (vitamin D2) 1,250 1,250 mcg PO .weekly #4 caps 11/05/24 mcg (50,000 unit) capsule Lactobacillus rhamnosus GG 20 See Rx Instructions PO . 2 times 11/15/24 billion cell capsule (Probiotic day #60 caps Digestive Care) ipratropium bromide 42 mcg (0.06 2 spray intranasal TI D #15 mL 11/15/24 %) nasal spray sodium chloride 1,000 mg soluble 1,000 mg PO DAILY #30 tabs 11/15/24 tablet citalopram 20 mg tablet 20 mg PO DAILY #30 tabs 02/09 zolpidem 10 mg tablet (Ambien) 10 mg PO .at bedtime HI N sleep #30 12/01/24 tabs atorvastatin 40 mg tablet (Lipitor) 40 mg PO DAILY #30 tabs 12/08/24 furosemide 40 mg tablet 40 mg PO QAM #30 tabs metoprolol tartrate 25 mg tablet 25 mg PO BID #60 tabs 12/08/24 oxycodone 20 mg tablet 20 mg PO QID PRN pain 30 day s #120 12/12/24 tabs Allergies Allergy/AdvReac Type Severity Reaction Status Date / Time amoxicillin Allergy Severe ALGY-Rash Verified 12/18/24 14:30 Penicillins Allergy Severe ALGY-Rash Verified 12/18/24 14:30 bupropion (From Wellbutrin) AdvReac Severe ADR-Itching Verified 12/18/24 14:30
[2024-12-21 11:22] LABS: Basophils % 0.1 %; Hematocrit 43.5 % (37-53); Lymphocytes # 0.5 10^3/uL (0.8-4.8); Mean Corpuscular HGB Conc 31.7 g/dL (30-55); Mean Corpuscular Hemoglobin 28.2 pg (27-33); Mean Platelet Volume 9.6 fL (7.4-10.4); Monocytes # 0.5 10^3/uL (0.2-0.9); Monocytes % 6.3 %; Neutrophils # 6.92 10^3/uL (1.8-7.7); Neutrophils % 86.6 %; Nucleated Red Blood Cells % 0.3 %; Platelet Count 123 10^3/cmm (157-399); Red Blood Count 4.89 10^6/uL (3.85-5.65); White Blood Count 7.99 10^3/uL (3.29-11.43)
[2024-12-21 11:49] LABS: Alanine Aminotransferase 121 U/L (0-41); Albumin Level 3.2 g/dL (3.5-5.2); Alkaline Phosphatase 340 U/L (40-130); Blood Urea Nitrogen 22 mg/dL (8-23); Calcium 8.6 mg/dL (8.5-10.5); Carbon Dioxide 34 mmol/L (22-29); Chloride 89 mmol/L (98-107); Globulin 2.9 g/dL (1.3-4.6); Glomerular Filtration Rate 165.4 mL/min (90-130); Glucose 127 mg/dL (65-115); NT Pro B Type Natriuretic Pept 2310 pg/mL (0-125); Osmolality Calculated 293 mOsm/kg (285-295); Sodium 139 mmol/L (136-145); Total Bilirubin 3.7 mg/dL (0.15-1.2); Total Protein 6.1 g/dL (6.6-8.7)
[2024-12-21 11:50] LABS: Anion Gap 19.6 (5-19); Aspartate Amino Transferase 116 U/L (0-40); Potassium 3.6 mmol/L (3.5-5.1)
[2024-12-21] MEDS: cefTRIAXone 1,000 mg SDV 1000 MG IVP (12:59)
[2024-12-21 13:02] LABS: ABG PCO2 56.9 mmHg (35-45); ABG PH Result 7.48 (7.35-7.45); Alveolar-Arterial Oxygen Gradi 48.7 mmHg (5-10); Arterial Blood Gas Hematocrit 44.1 % (42-52); Base Excess ABG 15.3 mmol/L (-2.0-2.0); Blood Gas Allen Test Pos; Blood Gas Operator Identificat WALCI; Blood Gas Sample Site Brachial, right; Blood Gas Sample Type Arterial; Carboxyhemoglobin 2.1 %THgb (0.4-20.1); HCO3 ABG 41.9 mmol/L (22-26); HGB O2 Sat 94.4 % (95-100); Ionized Calcium Level - ABG 1.1 mmol/L (1.1-1.4); Oxygen Device BIPAP; Oxygen Saturation ABG 97.4; PO2 ABG 91.9 mmHg (80.0-100.0); PO2 FiO2 Ratio Arterial Blood 122; Total Hemoglobin 14.4 g/dL (14-18)
[2024-12-21] MEDS: ondansetron 2 mg/ML SDV 2 mL 4 MG IVP (13:11)
[2024-12-21] MEDS: morphine 4 mg/mL SDV 1 mL IVP (13:11)
[2024-12-21 13:23] LABS: Influenza A NEGATIVE (Negative); Influenza B NEGATIVE (Negative); Respiratory Syncytial Virus Ce NEGATIVE (Negative); SARS-CoV-2 PCR NEGATIVE (Negative)
[2024-12-21] MEDS: iohexol 350 mg/mL 500 mL Btl (per mL) IV (13:41)
[2024-12-21] MEDS: AZITHROMYCIN ADD-Vantage 500 MG in 0.9% NaCl ADD-Vantage 250 ML 250 MG IV (13:50)
--- NOTE | 2024-12-21 17:11 | PM.HP ---
Providers/Chief Complaint Admitting Physician: Mary Mckeon MD Primary Care Provider: Seb Butt MD Chief Complaint: weakness History of Present Illness Oleg Garvey is a 69 year old male with known non-small cell lung cancer, diagnosed on 04/09/23 at time of T7 kyphoplasty, with biopsy of a T7 vertebral lesion showing metastatic non-small lung carcinoma. He was treated with Carboplatin, Pemetrexed and Pembrolizumab regimen for four cycles, given from 05/20/23 to 07/22/23, then continued on maintenance Pembrolizumab afterwards on 08/17/23.PET scan September 08, 2024 showed widespread metastatic disease to the liver and bone. then started on Pemetrexed sep 2024 with progression of diffuse. Diffuse metastasis currently to liver and bone. He presents to the emergency room today with increasing shortness of breath and abdominal swelling and inctreasing generalized weakness. He is 4 L/min at baseline. Currently in the emergency room was requiring nonrebreather and was placed on BiPAP eventually. Family reports he has been gradually declining over many days but more acutely in the past week. He was meant to have a liver biopsy in [facility] tomorrow but declined today to the point he needed to come to the ER. CTA negative for PE. Shows bilateral extensive hilar lymphadenopathy metastatic. There is noted to be endobronchial pneumonia on the right side, however degree of hypoxia is not explained by the infiltrate seen on personal review of the CT chest. Extensive metastatic liver disease with worsening transaminitis. Marked hepatic enlargement. There is diffuse soft tissue anasarca and a new right pleural effusion with bibasilar atelectasis however its pretty small on review. Review of Systems General: Reports: ROS unobtainable due to medical condition Medications/Allergies Home Medications ?Medication ?Instructions ?Recorded ?Confirmed ?Last Taken ?Type formoterol fumarate 20 mcg/2 mL 2 ml inhalation Q12H #120 mL 08/04/24 12/21/24 Unknown Rx solution for nebulization (Perforomist) folic acid 1 mg tablet 1 mg PO DAILY #30 tabs 09/27/24 12/21/24 11/02/24 Rx prochlorperazine maleate 10 mg 10 mg PO Q6H PRN nausea and 09/27/24 12/21/24 Unknown Rx tablet (Compazine) vomiting #30 tabs ondansetron HCl 8 mg tablet See Rx Instructions .Route 10/06/24 12/21/24 Unknown Rx .COMPLEX #90 tabs aspirin 81 mg tablet,delayed 81 mg PO DAILY 10/17/24 12/21/24 11/01/24 History release (Adult Low Dose Aspirin) budesonide 0.25 mg/2 mL suspension 0.25 mg inhalation BID 10/17/24 12/21/24 Unknown History for nebulization cyanocobalamin (vitamin B-12) 500 500 mcg PO DAILY 10/17/24 12/21/24 11/02/24 History mcg tablet ergocalciferol (vitamin D2) 1,250 1,250 mcg PO .weekly #4 caps 11/05/24 12/21/24 Unknown Rx mcg (50,000 unit) capsule Lactobacillus rhamnosus GG 20 See Rx Instructions PO .2 times 11/15/24 12/21/24 Unknown Rx billion cell capsule (Probiotic day #60 caps [facility]) ipratropium bromide 42 mcg (0.06 2 spray intranasal TID #15 mL 11/15/24 12/21/24 Unknown Rx %) nasal spray sodium chloride 1,000 mg soluble 1,000 mg PO DAILY #30 tabs 11/15/24 12/21/24 Unknown Rx tablet citalopram 20 mg tablet 20 mg PO DAILY #30 tabs 11/21/24 12/21/24 Unknown Rx zolpidem 10 mg tablet (Ambien) 10 mg PO .at bedtime PRN sleep #30 12/01/24 12/21/24 Unknown Rx tabs atorvastatin 40 mg tablet (Lipitor) 40 mg PO DAILY #30 tabs 12/08/24 12/21/24 Unknown Rx furosemide 40 mg tablet 40 mg PO QAM #30 tabs 12/08/24 12/21/24 Unknown Rx metoprolol tartrate 25 mg tablet 25 mg PO BID #60 tabs 12/08/24 12/21/24 Unknown Rx oxycodone 20 mg tablet 20 mg PO QID PRN pain 30 days #120 12/12/24 12/21/24 Unknown Rx tabs Allergies Allergy/AdvReac Type Severity Reaction Status Date / Time amoxicillin Allergy Severe ALGY-Rash Verified 12/18/24 14:30 Penicillins Allergy Severe ALGY-Rash Verified 12/18/24 14:30 bupropion (From Wellbutrin) AdvReac Severe ADR-Itching Verified 12/18/24 14:30 PFSH Acute PFSH: Medical History Diastolic heart failure Moderate aortic stenosis Acquired left foot drop Peripheral neuropathy Traumatic compression fracture of L5 vertebra Antineoplastic chemotherapy induced anemia History of radiation therapy Compression fx, thoracic spine Non-small cell lung cancer Hypertension Diabetes mellitus with hyperglycemia, without long-term current use of insulin Personal history of nicotine dependence Coronary artery disease COPD (chronic obstructive pulmonary disease) with emphysema Surgical History History of kyphoplasty (04/09/23) T7 kyphoplasty with biopsy of the T7 vertebral body and with radiofrequency ablation of T7 tumor Port-A-Cath in place Right chest wall 05/18/23 History of coronary artery stent placement History of cholecystectomy History of appendectomy Family History Other CAD (coronary artery disease) Cancer Hyperlipidemia Hypertension Denies family history of Bleeding disorder Social History Smoking and tobacco/nicotine status: current some day tobacco/nicotine user cigarettes Packs smoked per day: 2 [ Other cigarette details: smoked x 50+ years] Second hand smoke exposure: Yes Alcohol intake: current Alcohol intake frequency: holidays/special occasions only Substance/Drug Use: unknown Adopted: No Caregiver/support person: No Lives independently: Yes Household members: none Housing: House Marital status: Number of children: 1 Number of grandchildren: 3 service: No Current occupational status: retired Do you think of yourself as: Straight/Heterosexual Current gender identity: Male Vitals/I&O/Wt Last Vital Signs Temp 98.2 F 12/21/24 09:55 Pulse 89 12/21/24 16:27 Resp 18 12/21/24 13:11 BP 104/61 12/21/24 16:27 Pulse Ox 89 L 12/21/24 16:27 O2 Del Method Nasal Cannula 12/21/24 16:27 O2 Flow Rate 6 12/21/24 16:27 FiO2 75 12/21/24 13:09 Weight last 48 hrs Weight 97.522 kg Physical Exam Narrative: General: ill appearing, lethargic, wakes up to calling name and answers most questions, however overall very deconditioned HEENT: PERRLA, pupils bilaterally equal and reactive, pallors not present Chest: Normal vesicular breath sounds, no added sounds, equal good air entry bilaterally CVS: S1-S2 regular, no murmurs, no tachycardia, no gallops, no rubs Abdomen: Soft, nontender, no organomegaly, bowel sounds present Neuro: No focal deficits, no facial deformity, AO x3, power 5/5 in all limbs Extremities: purpuric rash and multiple bruises affecting B/L upper extremities, torso, palms Data 12/21/24 11:10 12/21/24 11:10 Micro: Microbiology 12/21/24 12:01 Blood Culture - Preliminary Blood SPECIMEN COLLECTED 12/21/24 11:57 Blood Culture - Preliminary Blood SPECIMEN COLLECTED Other data: Radiology Impressions Chest X-Ray 12/21/24 10:11 IMPRESSION: Interval development of abnormality in the right lung which may be pneumonitis or possibly early congestive failure. Chest/Abdomen/Pelvis CT 12/21/24 10:34 IMPRESSION: 1. No pulmonary embolism. 2. Increased in size and number of bilateral hilar lymphadenopathy. Suspicious for progression of metastatic disease. 3. Stable PET/CT positive nodule RIGHT upper lobe. 4. New tree in airspace disease in the RIGHT upper and RIGHT lower lobes consistent with endobronchial pneumonia. 5. Significant progression of extensive metastatic liver disease since 11/02/2024. Marked hepatic enlargement. 6. Development of ascites since the prior study. 7. No renal obstruction. 8. Patient has known metastatic bone disease which was better described and visualized by PET/CT imaging. 9. Diffuse soft tissue anasarca. 10. New small RIGHT pleural effusion with bibasilar atelectasis. Laboratory Results WBC 7.99 10^3/uL (3.29-11.43) 12/21/24 11:10 RBC 4.89 10^6/uL (3.85-5.65) 12/21/24 11:10 Hgb 13.80 g/dL (11.27-16.99) 12/21/24 11:10 Hct 43.5 % (37-53) 12/21/24 11:10 MCV 89.0 fl (82-101) 12/21/24 11:10 MCH 28.2 pg (27-33) 12/21/24 11:10 MCHC 31.7 g/dL (30-55) 12/21/24 11:10 RDW 18.0 % (12.1-15.1) H 12/21/24 11:10 Plt Count 123 10^3/cmm (157-399) L 12/21/24 11:10 MPV 9.6 fL (7.4-10.4) 12/21/24 11:10 Neut % (Auto) 86.6 % 12/21/24 11:10 Lymph % (Auto) 6.0 % 12/21/24 11:10 [place] % (Auto) 6.3 % 12/21/24 11:10 Eos % (Auto) 0.0 % 12/21/24 11:10 Baso % (Auto) 0.1 % 12/21/24 11:10 Neut # (Auto) 6.92 10^3/uL (1.8-7.7) 12/21/24 11:10 Lymph # (Auto) 0.5 10^3/uL (0.8-4.8) L 12/21/24 11:10 [place] # (Auto) 0.5 10^3/uL (0.2-0.9) 12/21/24 11:10 Eos # (Auto) 0.0 10^3/uL (0.0-0.8) 12/21/24 11:10 Baso # (Auto) 0.0 10^3/uL (0.0-0.1) 12/21/24 11:10 Nucleated RBC % (auto) 0.3 % 12/21/24 11:10 Nucleated RBCs # 0.0 /100WBC 12/21/24 11:10 PT 13.90 SECONDS (12.1-14.9) 12/21/24 11:10 INR 1.00 (0.8-1.2) 12/21/24 11:10 Specimen Type Arterial 12/21/24 12:51 Sample Site Brachial, right 12/21/24 12:51 ABG pH 7.48 (7.35-7.45) H 12/21/24 12:51 ABG pCO2 56.9 mmHg (35-45) H 12/21/24 12:51 ABG pO2 91.9 mmHg (80.0-100.0) 12/21/24 12:51 ABG PO2/FiO2 Ratio 122 12/21/24 12:51 ABG HCO3 41.9 mmol/L (22-26) H 12/21/24 12:51 ABG O2 Saturation 97.4 12/21/24 12:51 ABG Base Excess 15.3 mmol/L (-2.0-2.0) H 12/21/24 12:51 Oswaldo Test Pos 12/21/24 12:51 A-a O2 Gradient 48.7 mmHg (5-10) H 12/21/24 12:51 Hematocrit 44.1 % (42-52) 12/21/24 12:51 Hgb O2 Saturation 94.4 % (95-100) L 12/21/24 12:51 Carboxyhemoglobin 2.1 %THgb (0.4-20.1) 12/21/24 12:51 Methemoglobin 1.0 % (0.4-1.5) 12/21/24 12:51 Total Hemoglobin 14.4 g/dL (14-18) 12/21/24 12:51 Sodium 140.0 mmol/L (131-143) 12/21/24 12:51 Potassium 3.0 mmol/L (3.5-5.0) L 12/21/24 12:51 Glucose 113.0 mg/dL (70-115) 12/21/24 12:51 Ionized Calcium 1.1 mmol/L (1.1-1.4) 12/21/24 12:51 O2 Delivery Device Bipap 12/21/24 12:51 O2 Liters/Min 15.0 % 12/21/24 10:29 FiO2 75.0 % 12/21/24 12:51 Psychiatric Social Worker ID [place] 12/21/24 12:51 Sodium 139 mmol/L (136-145) 12/21/24 11:10 Potassium 3.6 mmol/L (3.5-5.1) 12/21/24 11:10 Chloride 89 mmol/L (98-107) L 12/21/24 11:10 Carbon Dioxide 34 mmol/L (22-29) H 12/21/24 11:10 Anion Gap 19.6 (5-19) H 12/21/24 11:10 BUN 22 mg/dL (8-23) 12/21/24 11:10 Creatinine 0.5 mg/dL (0.7-1.2) L 12/21/24 11:10 GFR Calculation 165.4 mL/min (90-130) H 12/21/24 11:10 Glucose 127 mg/dL (65-115) H 12/21/24 11:10 Calculated Osmolality 293 mOsm/kg (285-295) 12/21/24 11:10 Calcium 8.6 mg/dL (8.5-10.5) 12/21/24 11:10 Total Bilirubin 3.7 mg/dL (0.15-1.2) H 12/21/24 11:10 AST 116 U/L (0-40) H 12/21/24 11:10 ALT 121 U/L (0-41) H 12/21/24 11:10 Alkaline Phosphatase 340 U/L (40-130) H 12/21/24 11:10 NT-Pro-B Natriuret Pep 2310 pg/mL (0-125) H 12/21/24 11:10 Total Protein 6.1 g/dL (6.6-8.7) L 12/21/24 11:10 Albumin 3.2 g/dL (3.5-5.2) L 12/21/24 11:10 Globulin 2.9 g/dL (1.3-4.6) 12/21/24 11:10 Influenza A (PCR) Negative (Negative) 12/21/24 10:50 Influenza Type B (PCR) Negative (Negative) 12/21/24 10:50 RSV (PCR) Negative (Negative) 12/21/24 10:50 SARS-CoV-2 (PCR) Negative (Negative) 12/21/24 10:50 A&P Assessment and plan (1) Dehydration: (2) Cancer cachexia: (3) Pneumonia: (4) Metastatic lung cancer (metastasis from lung to other site): (5) Acute respiratory failure with hypoxemia: Plan 69M with metastatic lung ca with progressive disease in spite of chemo and immunotherapy presenting with increasing generalized weakness, acute on chronic hypoxic resp failure, pneumonia and cancer cachexia with failure to thrive. He is clinically appearing to be dehydrated He is lethargic, deconditioned, ill appearing overall CTA negative for PE , shows rigth side pneumonia, however likely this is not the only reason for hypoxia given small area of involvement. negative RVP for RSV, influenza and Covid Start Zosyn and vancomycin empirically check MRSA PCR Blood cx taken UA not s/o UTI IVF NS gentle hydration to minimize risk of fluid overload CT head given he is lethargic, concern for metastatsic disease start dexamthesone for cancer cachexia Supplemental 02 to keep saturation > 90% overall prognosis is very poor, discussed with son high probability of deterioration. Family and patient would like to continue medical interventions at this time including abx, iv fluids, however patient has made his wishes clear that he would not want any intubation or CPR. DVT ppx: lovenox DNR/DNI PUD ppx: protonix Clear liquid diet only for now, advance with improvement in mental statsu PDMP PDMP Reviewed: Not Reviewed Attestations Medical Necessity Statement*: > 2 midnight admission is anticipated Coding Level of Care Code Acute Code for Chg Fwd Diagnoses Dehydration E86.0 Cancer cachexia R64 Pneumonia J18.9 Metastatic lung cancer (metastasis from lung to other site) C34.90 Acute respiratory failure with hypoxemia J96.01
--- NOTE | 2024-12-21 19:30 | PHA.VACGOAL ---
Vancomycin Goal - Goal Vancomycin Goal:: 15-20 mg/L Vancomycin Indication:: Pneumonia - Therapy Current therapy:: Cefepime Day of therpy:: Day 1 of [] Actual body weight (kg): 215 lb - Data Labs: WBC 7.99 10^3/uL (3.29-11.43) 12/21/24 11:10 RBC 4.89 10^6/uL (3.85-5.65) 12/21/24 11:10 Hgb 13.80 g/dL (11.27-16.99) 12/21/24 11:10 Hct 43.5 % (37-53) 12/21/24 11:10 MCV 89.0 fl (82-101) 12/21/24 11:10 MCH 28.2 pg (27-33) 12/21/24 11:10 MCHC 31.7 g/dL (30-55) 12/21/24 11:10 RDW 18.0 % (12.1-15.1) H 12/21/24 11:10 Sodium 139 mmol/L (136-145) 12/21/24 11:10 Potassium 3.6 mmol/L (3.5-5.1) 12/21/24 11:10 Chloride 89 mmol/L (98-107) L 12/21/24 11:10 Carbon Dioxide 34 mmol/L (22-29) H 12/21/24 11:10 Anion Gap 19.6 (5-19) H 12/21/24 11:10 BUN 22 mg/dL (8-23) 12/21/24 11:10 Creatinine 0.5 mg/dL (0.7-1.2) L 12/21/24 11:10 GFR Calculation 165.4 mL/min (90-130) H 12/21/24 11:10 Last dialysis session:: N/A Treatment plan:: new consult Regimen:: INITIAL DOSE OF 1250 MG Q8H BASED ON DOSING PROTOCOL. WILL CONTINUE TO FOLLOW UP DAILY. Follow up:: TROUGH 12/22 @1900
[2024-12-21] MEDS: vancomycin 1,250 MG/250 ML PIGGYBACK 166.67 MG IV (22:39)
[2024-12-21] MEDS: dexamethasone 4 mg/mL INJ 6 MG IVP (22:40)
[2024-12-21] MEDS: cefepime 1,000 mg SDV 1000 MG IVP (22:40)
[2024-12-21] MEDS: enoxaparin 40 mg/0.4 mL Syringe SUBCUT (22:40)
[2024-12-21] MEDS: dextrose 5%-sod chloride 0.9% 1,000 ML 50 ML IV (23:00)
[2024-12-22] VITALS (10 sets, daily range): BP systolic 116–132; BP diastolic 64–71; PULSE 94–111; RESP 15–22; TEMP 36.6–37.1; O2SAT 90–94
[2024-12-22 00:42] LABS: MRSA PCR OZH (swab) NOT DETECTED (Negative)
[2024-12-22] MEDS: morphine 4 mg/mL SDV 1 mL 2 MG IVP ×3 (03:26→14:16)
[2024-12-22] MEDS: cefepime 1,000 mg SDV 1000 MG IVP ×3 (03:26→20:45)
[2024-12-22] MEDS: vancomycin 1,250 MG/250 ML PIGGYBACK 250 MG IV ×2 (03:27→11:44)
[2024-12-22 05:24] LABS: Basophils % 0.1 %; Eosinophils % 0.1 %; Hematocrit 41.3 % (37-53); Lymphocytes # 0.4 10^3/uL (0.8-4.8); Lymphocytes % 6.1 %; Mean Corpuscular HGB Conc 31.7 g/dL (30-55); Mean Corpuscular Hemoglobin 28.2 pg (27-33); Mean Platelet Volume 9.2 fL (7.4-10.4); Monocytes # 0.4 10^3/uL (0.2-0.9); Monocytes % 5.8 %; Neutrophils # 6.03 10^3/uL (1.8-7.7); Neutrophils % 86.9 %; Nucleated Red Blood Cells % 0.3 %; Platelet Count 101 10^3/cmm (157-399); Red Blood Count 4.64 10^6/uL (3.85-5.65); Red Cell Distribution Width 18.4 % (12.1-15.1); White Blood Count 6.94 10^3/uL (3.29-11.43)
[2024-12-22 05:43] LABS: Alanine Aminotransferase 116 U/L (0-41); Albumin Level 2.9 g/dL (3.5-5.2); Alkaline Phosphatase 323 U/L (40-130); Anion Gap 19.1 (5-19); Aspartate Amino Transferase 113 U/L (0-40); Blood Urea Nitrogen 22 mg/dL (8-23); Calcium 8.4 mg/dL (8.5-10.5); Carbon Dioxide 35 mmol/L (22-29); Chloride 89 mmol/L (98-107); Creatinine Clr Calc Pharmacy 108.4355; Globulin 3.1 g/dL (1.3-4.6); Glucose 145 mg/dL (65-115); Osmolality Calculated 296 mOsm/kg (285-295); Potassium 3.1 mmol/L (3.5-5.1); Sodium 140 mmol/L (136-145); Total Bilirubin 3.4 mg/dL (0.15-1.2)
[2024-12-22] MEDS: pantoprazole DR 40 mg Tablet PO (09:33)
--- NOTE | 2024-12-22 10:14 | PC.SOCIAL ---
IMM Updated Updated pt on IMM. No questions voiced. Provided pt a copy. Initialed, dated, & timed a copy & placed in chart.
--- NOTE | 2024-12-22 10:15 | PC.CHAP ---
Pastoral Care Encounter/Spiritual Assessment Type of Contact [] Declined shipping supervisor visit [] Patient/Family/Request visit [] Outpatient visit [] Follow-up visit [] Physician referral [] Code/Alert [x] Routine visit [] Staff referral [] Actively dying [] Patient sleeping [x] Family support [] [] Out of room [] Palliative care [] [] Receiving care in room [] Pre-surgical visit [] Trauma [] Long length of stay [] ICU visit [] Other: Relational/Emotional Strength [x] Patient feels connected with others/family/visitors/staff [] Distress [] Loneliness/isolation [] Abandonment Spirituality of Patient [x] Person of Yvonne [] Attends Church of their Yvonne [x] Believes in Prayer [] Reads Bible or Mosque materials [] There are Spiritual issues to be addressed Running Instructor Interventions [x] Prayer [x] Active listening [] Non-anxious presence [x] Spiritual/emotional support [] Crisis/trauma care [] Spiritual counseling [] Bereavement support [] Provided bereavement packet [] Provided Bible/devotional materials [] Provided toy/stuffed animal, coloring book to patient or family member [] Provided Communion [] Anointing/[place] [] Salvation [x] Completed spiritual assessment [] Other: Impact on Illness or Injury [] Angry [] Fearful [] Anxious [] Often cries [] Exhaustion [] Unable to work [] Unable to attend uatsdin [] Unable to walk/stand [] Unable to read [] Unable to drive [] Unable to eat/drink [] Unable to sleep [] Unable to be with family [] Patient intubated [] Other: Summary Time spent with patient 10 min
[2024-12-22] MEDS: dextrose 5%-sod chloride 0.9% 1,000 ML 50 ML IV (11:44)
--- NOTE | 2024-12-22 15:00 | PC.NURSE ---
This aide was making the hourly rounds and going to check vitals on the patient when she seen and heard family talking to the patient. While this aide was in the room she heard family, specifically the sister of the patient telling the patient If you want to fight then we'll go to [place] and fight it and if not we'll just stay here. Patient then had replied I don't want [place] I want to go to [facility]. The sister of the patient turned around to talk to the other family He said he wants to go to [place] so we need to transfer him to [place]. If he wants to fight it then we're going to fight it. At around 1600 this aide came back to check on the patient again during rounds and the patient was trying to talk so this aide asked him to repeat what he had said. Patient then said I hate to hurt my sister's feelings.
--- NOTE | 2024-12-22 16:16 | P.PN_ITS ---
Subjective 2 Subjective: Patient is lethargic, intermittently will wake up state his correct name, date of however he is extremely weak and deconditioned. Currently he is on high flow nasal cannula at 9 L/min. Family meeting today to discuss goals of care. Medications: Reviewed: Yes Vitals/I&O/Wt Last Vital Signs Temp 98.8 F 12/22/24 11:20 Pulse 95 12/22/24 11:20 Resp 17 12/22/24 11:20 BP 132/66 12/22/24 11:20 Pulse Ox 90 12/22/24 13:39 O2 Del Method High Flow Nasal Cannula 12/22/24 13:39 O2 Flow Rate 9 12/22/24 13:39 FiO2 75 12/21/24 13:09 12/22/24 12/22/24 12/22/24 06:59 14:59 22:59 Intake Total 1500 / 1750 986.667 / 986.667 Output Total 400 / 400 250 / 250 Balance 1100 / 1350 736.667 / 736.667 Weight last 48 hrs Weight 100.471 kg Weight 98.43 kg Weight 97.522 kg Physical Exam 2 Narrative: General: ill appearing, lethargic, wakes up to calling name and answers most questions, however overall very deconditioned HEENT: PERRLA, pupils bilaterally equal and reactive, pallors not present Chest: Normal vesicular breath sounds, no added sounds, equal good air entry bilaterally CVS: S1-S2 regular, no murmurs, no tachycardia, no gallops, no rubs Abdomen: Soft, nontender, no organomegaly, bowel sounds present Neuro: No focal deficits, no facial deformity, AO x3, power 5/5 in all limbs Extremities: purpuric rash and multiple bruises affecting B/L upper extremities, torso, palms Data 12/22/24 04:40 12/22/24 04:40 Micro: Microbiology 12/21/24 12:01 Blood Culture - Preliminary Blood NEGATIVE TO DATE 12/21/24 11:57 Blood Culture - Preliminary Blood NEGATIVE TO DATE A&P Assessment and plan (1) Dehydration: (2) Cancer cachexia: (3) Pneumonia: (4) Metastatic lung cancer (metastasis from lung to other site): (5) Acute respiratory failure with hypoxemia: Plan 69M with metastatic lung ca with progressive disease in spite of chemo and immunotherapy presenting with increasing generalized weakness, acute on chronic hypoxic resp failure, pneumonia and cancer cachexia with failure to thrive. He is clinically appearing to be dehydrated He is lethargic, deconditioned, ill appearing overall CTA negative for PE , shows rigth side pneumonia, however likely this is not the only reason for hypoxia given small area of involvement. negative RVP for RSV, influenza and Covid Start Zosyn and vancomycin empirically check MRSA PCR Blood cx taken UA not s/o UTI IVF NS gentle hydration to minimize risk of fluid overload CT head given he is lethargic, concern for metastatsic disease start dexamthesone for cancer cachexia Supplemental 02 to keep saturation > 90% overall prognosis is very poor, discussed with son high probability of deterioration. Family and patient would like to continue medical interventions at this time including abx, iv fluids, however patient has made his wishes clear that he would not want any intubation or CPR. DVT ppx: lovenox DNR/DNI PUD ppx: protonix Clear liquid diet only for now, advance with improvement in mental statsu December 22, 2024 Patient has been lethargic, waxing and waning mentation during course of the day. He will wake up to correctly state his name, age, date of and then goes back to sleep. Earlier this morning he had spent time with his son and had said that he was ready to meet Salomon, ready to meet his parents again. Last night he had indicated he would not want any mechanical ventilation or CPR. Patient's son is at bedside and aware of patient's poor prognosis. Several other family members presented to bedside today including his sister and niece with whom patient has been living more recently. Discussed with them the progression of cancer in spite of chemotherapy. CT scan performed last night shows diffuse malignancy involving mediastinal lymph nodes, liver, worsening liver function, bony metastases. CT of the head was not completed due to delays in radiology. Discussed with the family that overall patient's prognosis is very poor. He is in no condition to travel to [place] at this time and undergo biopsy. It is highly unlikely that further chemotherapy would be offered at this time given his extremely poor functional status. His ECOG score is 4 at this time and between 3-4 per my estimate more recently at home. Case was discussed with his oncologist Dr. Butt. Hospice would be an appropriate consideration at this time given patient's progressive cancer, poor functional status. He is not likely to survive beyond the next few days should he survive the current admission. Current line of treatment with antibiotics and steroids is unlikely to have any meaningful impact on his long-term prognosis. Family expresses interest in transitioning to hospice and would like to speak to hospice nurse today. A referral has been placed to [address] [place] [address]. PDMP PDMP Reviewed: Not Reviewed Attestations 2 Medical Necessity Statement*: Extensive goals of care discussion, transition to hospice Coding Level of Care Code Acute Code for Chg Fwd Diagnoses Dehydration E86.0 Cancer cachexia R64 Pneumonia J18.9 Metastatic lung cancer (metastasis from lung to other site) C34.90 Acute respiratory failure with hypoxemia J96.01
[2024-12-22] MEDS: dexamethasone 4 mg/mL INJ 6 MG IVP (18:28)
--- NOTE | 2024-12-22 19:32 | PC.NURSE ---
Multiple family members in the room this shift. Aunt Michaelle repeatedly tells patient that he has to keep fighting this cancer and that Kyle told you to keep fighting this. Due to distress on patient, Dr. Mckeon limits the amount of visitors in the room to 2 at a time.
[2024-12-22] MEDS: lidocaine 5% Patch 1 PATCH TOPICAL (20:45)
[2024-12-22] MEDS: enoxaparin 40 mg/0.4 mL Syringe SUBCUT (20:46)
[2024-12-22] MEDS: budesonide 0.5 mg/2 mL Neb 0.25 MG INHALATION (20:58)
[2024-12-22] MEDS: lidocaine 2% Urojet 20 mL TOPICAL (23:58)
[2024-12-23] VITALS (13 sets, daily range): BP systolic 123–138; BP diastolic 67–75; PULSE 78–107; RESP 15–24; TEMP 36.7–37.1; O2SAT 87–97
[2024-12-23] MEDS: cefepime 1,000 mg SDV 1000 MG IVP ×3 (02:59→19:12)
--- NOTE | 2024-12-23 04:00 | XRR_ITS ---
PROCEDURE INFORMATION: Exam: XR Chest Exam date and time: 12/23/2024 5:01 AM Age: 69 years old Clinical indication: Other: F/u pneumonia; Prior surgery; Surgery date: 6+ months; Surgery type: Chest port. Coronary stents. Gb. F/u for pneumonia. History of metastatic lung cancer. ; Additional info: F/up pneumonia TECHNIQUE: Imaging protocol: Radiologic exam of the chest. Views: 1 view. COMPARISON: CT angio chest w abd pel w con 12/21/2024 1:29 PM FINDINGS: Lungs: Emphysematous COPD. Moderate interstitial fibrosis. Mild infiltrates at the lateral right lung and in each lower lobe. This has increased slightly since the prior study. Pleural spaces: Unremarkable. No pleural effusion. No pneumothorax. Heart/Mediastinum: Unremarkable. No cardiomegaly. Bones/joints: Midthoracic kyphoplasty. XR/XR chest 1V portable [id number] IMPRESSION: Multifocal pulmonary infiltrates slightly increasing since 12/21/2024.
[2024-12-23 04:34] LABS: Basophils % 0.2 %; Hematocrit 39.1 % (37-53); Lymphocytes # 0.5 10^3/uL (0.8-4.8); Lymphocytes % 7.1 %; Mean Corpuscular HGB Conc 32.2 g/dL (30-55); Mean Corpuscular Hemoglobin 28.5 pg (27-33); Mean Corpuscular Volume 88.5 fl (82-101); Mean Platelet Volume 9.7 fL (7.4-10.4); Monocytes # 0.4 10^3/uL (0.2-0.9); Monocytes % 5.9 %; Neutrophils # 5.69 10^3/uL (1.8-7.7); Neutrophils % 85.9 %; Nucleated Red Blood Cells % 0 %; Platelet Count 89 10^3/cmm (157-399); Red Blood Count 4.42 10^6/uL (3.85-5.65); Red Cell Distribution Width 18.1 % (12.1-15.1); White Blood Count 6.62 10^3/uL (3.29-11.43)
[2024-12-23 04:53] LABS: Alanine Aminotransferase 112 U/L (0-41); Albumin Level 2.7 g/dL (3.5-5.2); Alkaline Phosphatase 309 U/L (40-130); Anion Gap 18.3 (5-19); Aspartate Amino Transferase 109 U/L (0-40); Blood Urea Nitrogen 23 mg/dL (8-23); Calcium 8.5 mg/dL (8.5-10.5); Carbon Dioxide 35 mmol/L (22-29); Chloride 85 mmol/L (98-107); Creatinine Clr Calc Pharmacy 108.4355; Glomerular Filtration Rate 165.4 mL/min (90-130); Glucose 158 mg/dL (65-115); Osmolality Calculated 287 mOsm/kg (285-295); Potassium 3.3 mmol/L (3.5-5.1); Sodium 135 mmol/L (136-145); Total Bilirubin 3.7 mg/dL (0.15-1.2); Total Protein 5.7 g/dL (6.6-8.7)
[2024-12-23] MEDS: dextrose 5%-sod chloride 0.9% 1,000 ML 50 ML IV (04:53)
[2024-12-23] MEDS: morphine 4 mg/mL SDV 1 mL 2 MG IVP ×2 (06:04→21:28)
[2024-12-23] MEDS: lidocaine 5% Patch 1 PATCH TOPICAL ×2 (08:11→20:34)
[2024-12-23] MEDS: pantoprazole DR 40 mg Tablet PO (08:12)
[2024-12-23] MEDS: oxyCODONE 5 mg IR Tab/Cap 20 MG PO (08:12)
--- NOTE | 2024-12-23 08:51 | CTR_ITS ---
PROCEDURE INFORMATION: Exam: CT Head Without Contrast Exam date and time: 12/23/2024 9:17 AM Age: 69 years old Clinical indication: Altered mental status/memory loss; Additional info: AMS, altered mental status, lung CA, suspect metastatic disease TECHNIQUE: Imaging protocol: Computed tomography of the head without contrast. Radiation optimization: All CT scans at this facility use at least one of these dose optimization techniques: automated exposure control; mA and/or kV adjustment per patient size (includes targeted exams where dose is matched to clinical indication); or iterative reconstruction. COMPARISON: MR head wo/w con [id number] 11/04/2023 9:50 AM RADIATION DOSE METRICS: Total DLP (mGy-cm): 1271.48 FINDINGS: Brain: There is mild small vessel disease. There is no evidence of acute parenchymal hemorrhage, extra-axial collection, or acute infarction. There is no mass effect, midline shift, or downward herniation. Cerebral ventricles: No ventriculomegaly. Paranasal sinuses: Visualized sinuses are unremarkable. No fluid levels. Mastoid air cells: Visualized mastoid air cells are well aerated. Bones: Unremarkable. No acute fracture. Soft tissues: Unremarkable. CT/CT head wo con* [id number] IMPRESSION: Mild small vessel disease. No evidence of acute intracranial process.
[2024-12-23] MEDS: albuterol 2.5 mg/3 mL Neb INHALATION ×3 (09:36→19:49)
[2024-12-23] MEDS: lidocaine 1% 5 ML in potassium chloride premix 100 ML 26.25 ML IV (09:45)
[2024-12-23 12:22] LABS: Ammonia 65 umol/L (16-60)
--- NOTE | 2024-12-23 14:45 | PC.NURSE ---
RN has to direct family multiple times to follow the 2 person visitor restriction.
--- NOTE | 2024-12-23 14:49 | P.TS_ITS ---
Transfer Summary Providers Date of Admission: 12/21/24 17:48 Date of Discharge/Transfer: 12/23/24 Attending Provider at Admission: Mary Mckeon MD Attending Provider at Transfer: Mary Mckeon MD Primary Care Provider: Seb Butt MD Transfer Plans: Anticipated date of transfer: 12/23/24 . Receiving Facility: [facility] . Receiving Provider: Dr. Madrid . Diagnoses at Discharge Discharge Diagnosis (1) Dehydration: Status: Acute (2) Cancer cachexia: Status: Acute (3) Pneumonia: Status: Acute (4) Metastatic lung cancer (metastasis from lung to other site): Status: Acute (5) Acute respiratory failure with hypoxemia: Status: Acute (6) Hepatic encephalopathy: Status: Acute (7) Anasarca: Status: Acute Reason for Visit Reason for Visit weakness Hospital Course Hospital Course Oleg Garvey is a 69 year old male with known non-small cell lung cancer, diagnosed on 04/09/23 with biopsy of a T7 vertebral lesion showing metastatic non-small lung carcinoma.He was treated with Carboplatin, Pemetrexed and Pembrolizumab regimen for four cycles, given from 05/20/23 to 07/22/23, then continued on maintenance Pembrolizumab afterwards on 08/17/23.PET scan September 08, 2024 showed widespread metastatic disease to the liver and bone. then started on Pemetrexed sep 2024 with progression of diffuse metastasis currently to mediastinal lymph nodes, liver and bone including spine and pelvic bones. He presented to the emergency room on 12/21/24 with increasing shortness of breath and abdominal swelling and increasing generalized weakness. He is 4 L/min at baseline.In the ER needed 10lpm via NRB and then BIpap ventilation for short while. He was confused, lethargic, grossly dehydrated on the day of admission. CT of the chest was negative for PE. CT of the abdomen and pelvis showed extensive hilar metastatic lymphadenopathy. There was noted to be endobronchial pneumonia on the right side. There was progression of diffuse liver metastases. He had worsening transaminitis. Patient was started on gentle IV hydration with D5 normal saline at 50 cc an hour as he was clinically dehydrated upon arrival. Fluids discontinued today due to noted LE edema and increased abdominal distension. Received lasix 20mg iv x 1 today. Started on cefepime and vancomycin empirically for pneumonia, of which vancomycin was discontinued when MRSA nasal screen returned negative. He is currently on cefepime 1 g IV every 8 hours. Blood cultures were taken, thus far negative to date. UA was not suggestive of a UTI. CT of the head was without any acute intracranial events. He had worsening transaminitis compared to 1 month ago. Ammonia level was checked today which was at 64 therefore likely hepatic encephalopathy contributing to his mental status. He has been started on lactulose, is yet to have a bowel movement. He was additionally started on dexamethasone 6 mg IV every 24 hours for cancer cachexia. HE was on lovenox ppx for DVT since admission, which has been placed [place] [address]. He is currently requiring 9 L/min supplemental O2 via high flow nasal cannula. He is planned for a therapeutic paracentesis on Wednesday with return of IR services, should he be unable to transfer by then. (IR N/A over the weekend). Patient mentation is slightly improved today on the day of transfer. He is able to correctly state his name, age, date of , knows that he is in the hospital however did not know he is in [place]. He is able to answer some basic questions with regards to pain, appetite etc. However do not believe his mentation is good enough at this time to have a true insight to make goals of care decisions. Patient's son Jai has been at bedside, he is the next of kin. Patient does not have a spouse or other children per information by family. Goals of care were discussed extensively with patient's son. There are several other family members at bedside who have been part of the discussion however there is no designated DPOA therefore decision making has been guided by talking to patient's son. He was made aware of patient's extremely poor prognosis ; there has been progression of cancer in spite of chemotherapy, CT is showing worsening mediastinal lymph nodes, worsened hepatomegaly, worsening liver mets and persistent bony metastases diffusely involving the spine and pelvic bones. His ECOG at this present time is estimated at 3-4 at best. discussed that current line of treatment with antibiotics and steroids is unlikely to have any meaningful impact on his long-term prognosis . Case was discussed with his outpatient oncologist Dr. Butt and offering hospice considered appropriate. Hospice was offered, patient's family discussed hospice services with [address] [place] [address], however eventually declined hospice. They believe that further chemotherapy options may be available at a tertiary center. It appears he was scheduled for a liver biopsy in [facility] for further diagnostic and therapeutic decisions. Patient's family has requested transfer to [facility] today. Call was placed to the transfer center and patient has been accepted to the hospitalist service there. We are awaiting bed allotment at this time. Physical Exam Narrative: General: No acute distress, AO x3 HEENT: PERRLA, pupils bilaterally equal and reactive, pallors not present Chest: Normal vesicular breath sounds, no added sounds, equal good air entry bilaterally CVS: S1-S2 regular, no murmurs, no tachycardia, no gallops, no rubs Abdomen: Soft, nontender, no organomegaly, bowel sounds present Neuro: No focal deficits, no facial deformity, AO x3, power 5/5 in all limbs TS Data Studies Completed and Pending Pending at discharge Category Date Time Status Bacterial Antigen Routine Lab 12/21/24 19:25 Uncollected Blood Culture Stat Lab 12/21/24 12:01 Results CMP [Comprehensive Metabolic Panel] AM LABS Lab 12/24/24 04:00 Ordered Complete Blood Count w/Auto AM LABS Lab 12/24/24 04:00 Ordered Sputum Culture and Gram Stain Routine Lab 12/21/24 19:25 [place]collected [place] w [id number] Routine Ultrasound 12/25/24 10:37 Ordered Completed Studies During Hospitalization Category Date Time Status CT angio chest w abd pel w con Stat Cat Scan 12/21/24 10:[address] head wo con* [id number] Stat Cat Scan 12/23/24 08:51 Completed CXRP [XR chest 1V portable [id number]] AM LABS Exams 12/23/24 04:00 Completed XR chest 1V portable [id number] Stat Exams 12/21/24 10:11 Completed Laboratory Last Values WBC 6.62 10^3/uL (3.29-11.43) 12/23/24 02:42 RBC 4.42 10^6/uL (3.85-5.65) 12/23/24 02:42 Hgb 12.60 g/dL (11.27-16.99) 12/23/24 02:42 Hct 39.1 % (37-53) 12/23/24 02:42 MCV 88.5 fl (82-101) 12/23/24 02:42 MCH 28.5 pg (27-33) 12/23/24 02:42 MCHC 32.2 g/dL (30-55) 12/23/24 02:42 RDW 18.1 % (12.1-15.1) H 12/23/24 02:42 Plt Count 89 10^3/cmm (157-399) L 12/23/24 02:42 MPV 9.7 fL (7.4-10.4) 12/23/24 02:42 Neut % (Auto) 85.9 % 12/23/24 02:42 Lymph % (Auto) 7.1 % 12/23/24 02:42 Morrow % (Auto) 5.9 % 12/23/24 02:42 Eos % (Auto) 0.0 % 12/23/24 02:42 Baso % (Auto) 0.2 % 12/23/24 02:42 Neut # (Auto) 5.69 10^3/uL (1.8-7.7) 12/23/24 02:42 Lymph # (Auto) 0.5 10^3/uL (0.8-4.8) L 12/23/24 02:42 Morrow # (Auto) 0.4 10^3/uL (0.2-0.9) 12/23/24 02:42 Eos # (Auto) 0.0 10^3/uL (0.0-0.8) 12/23/24 02:42 Baso # (Auto) 0.0 10^3/uL (0.0-0.1) 12/23/24 02:42 Nucleated RBC % (auto) 0 % 12/23/24 02:42 Nucleated RBCs # 0.0 /100WBC 12/23/24 02:42 PT 13.90 SECONDS (12.1-14.9) 12/21/24 11:10 INR 1.00 (0.8-1.2) 12/21/24 11:10 Specimen Type Arterial 12/21/24 12:51 Sample Site Brachial, right 12/21/24 12:51 ABG pH 7.48 (7.35-7.45) H 12/21/24 12:51 ABG pCO2 56.9 mmHg (35-45) H 12/21/24 12:51 ABG pO2 91.9 mmHg (80.0-100.0) 12/21/24 12:51 ABG PO2/FiO2 Ratio 122 12/21/24 12:51 ABG HCO3 41.9 mmol/L (22-26) H 12/21/24 12:51 ABG O2 Saturation 97.4 12/21/24 12:51 ABG Base Excess 15.3 mmol/L (-2.0-2.0) H 12/21/24 12:51 Oswaldo Test Pos 12/21/24 12:51 A-a O2 Gradient 48.7 mmHg (5-10) H 12/21/24 12:51 Hematocrit 44.1 % (42-52) 12/21/24 12:51 Hgb O2 Saturation 94.4 % (95-100) L 12/21/24 12:51 Carboxyhemoglobin 2.1 %THgb (0.4-20.1) 12/21/24 12:51 Methemoglobin 1.0 % (0.4-1.5) 12/21/24 12:51 Total Hemoglobin 14.4 g/dL (14-18) 12/21/24 12:51 Sodium 140.0 mmol/L (131-143) 12/21/24 12:51 Potassium 3.0 mmol/L (3.5-5.0) L 12/21/24 12:51 Glucose 113.0 mg/dL (70-115) 12/21/24 12:51 Ionized Calcium 1.1 mmol/L (1.1-1.4) 12/21/24 12:51 O2 Delivery Device Bipap 12/21/24 12:51 O2 Liters/Min 15.0 % 12/21/24 10:29 FiO2 75.0 % 12/21/24 12:51 [employer]shore [employer] ID [place] 12/21/24 12:51 Sodium 135 mmol/L (136-145) L 12/23/24 02:42 Potassium 3.3 mmol/L (3.5-5.1) L 12/23/24 02:42 Chloride 85 mmol/L (98-107) L 12/23/24 02:42 Carbon Dioxide 35 mmol/L (22-29) H 12/23/24 02:42 Anion Gap 18.3 (5-19) 12/23/24 02:42 BUN 23 mg/dL (8-23) 12/23/24 02:42 Creatinine 0.5 mg/dL (0.7-1.2) L 12/23/24 02:42 GFR Calculation 165.4 mL/min (90-130) H 12/23/24 02:42 Glucose 158 mg/dL (65-115) H 12/23/24 02:42 Calculated Osmolality 287 mOsm/kg (285-295) 12/23/24 02:42 Calcium 8.5 mg/dL (8.5-10.5) 12/23/24 02:42 Total Bilirubin 3.7 mg/dL (0.15-1.2) H 12/23/24 02:42 AST 109 U/L (0-40) H 12/23/24 02:42 ALT 112 U/L (0-41) H 12/23/24 02:42 Alkaline Phosphatase 309 U/L (40-130) H 12/23/24 02:42 Ammonia 65 umol/L (16-60) H 12/23/24 11:56 NT-Pro-B Natriuret Pep 2310 pg/mL (0-125) H 12/21/24 11:10 Total Protein 5.7 g/dL (6.6-8.7) L 12/23/24 02:42 Albumin 2.7 g/dL (3.5-5.2) L 12/23/24 02:42 Globulin 3.0 g/dL (1.3-4.6) 12/23/24 02:42 Nasal MRSA (PCR) Not detected (Negative) 12/21/24 22:00 Influenza A (PCR) Negative (Negative) 12/21/24 10:50 Influenza Type B (PCR) Negative (Negative) 12/21/24 10:50 RSV (PCR) Negative (Negative) 12/21/24 10:50 SARS-CoV-2 (PCR) Negative (Negative) 12/21/24 10:50 Radiology Impressions Chest/Abdomen/Pelvis CT 12/21/24 10:34 IMPRESSION: 1. No pulmonary embolism. 2. Increased in size and number of bilateral hilar lymphadenopathy. Suspicious for progression of metastatic disease. 3. Stable PET/CT positive nodule RIGHT upper lobe. 4. New tree in airspace disease in the RIGHT upper and RIGHT lower lobes consistent with endobronchial pneumonia. 5. Significant progression of extensive metastatic liver disease since 11/02/2024. Marked hepatic enlargement. 6. Development of ascites since the prior study. 7. No renal obstruction. 8. Patient has known metastatic bone disease which was better described and visualized by PET/CT imaging. 9. Diffuse soft tissue anasarca. 10. New small RIGHT pleural effusion with bibasilar atelectasis. Chest X-Ray 12/23/24 04:00 IMPRESSION: Multifocal pulmonary infiltrates slightly increasing since 12/21/2024. Head CT 12/23/24 08:51 IMPRESSION: Mild small vessel disease. No evidence of acute intracranial process. Recent Clincial Data Last Vital Signs Temp 98.4 F 12/23/24 11:46 Pulse 101 H 12/23/24 11:46 Resp 17 12/23/24 11:46 BP 123/75 12/23/24 11:46 Pulse Ox 90 12/23/24 11:46 O2 Del Method Nasal Cannula 12/23/24 11:46 O2 Flow Rate 8 12/23/24 11:46 FiO2 75 12/21/24 13:09 Vital Signs Temp Pulse Resp BP Pulse Ox O2 Del Method O2 Flow Rate 12/23/24 11:46 98.4 F 101 H 17 123/75 90 Nasal Cannula 8 12/23/24 09:39 96 18 97 High Flow Nasal Cannula 9 12/23/24 07:15 98.3 F 102 H 15 129/74 92 Nasal Cannula 9 12/23/24 06:04 18 12/23/24 04:00 98.8 F 107 H 17 135/68 90 Nasal Cannula Intake & Output/Weight 12/21/24 12/22/24 12/23/24 12/24/24 06:59 06:59 06:59 07:59 Intake Total 1750 / 1750 1874.167 / 1874.167 344.167 / 344.167 Output Total 400 / 400 1400 / 1400 Balance 1350 / 1350 474.167 / 474.167 344.167 / 344.167 Weight 100.471 kg 102.92 kg Vitals Last Vital Signs Temp 98.4 F 12/23/24 11:46 Pulse 101 H 12/23/24 11:46 Resp 17 12/23/24 11:46 BP 123/75 12/23/24 11:46 Pulse Ox 90 12/23/24 11:46 O2 Del Method Nasal Cannula 12/23/24 11:46 O2 Flow Rate 8 12/23/24 11:46 FiO2 75 12/21/24 13:09 TS Medications Medications Acetaminophen (Acetaminophen 325 Mg Tablet) 650 mg PO Q6H PRN PRN Reason: Mild/Mod Pain Or Temp >/= 101 Albuterol Sulfate (Albuterol 2.5 Mg/3 Ml Neb) 2.5 mg INHALATION Q4H.RESPIRATORY PRN PRN Reason: WHEEZING Last Admin: 12/23/24 09:36 Dose: 2.5 mg Artificial Tears (Artificial Tears Op Soln 15 Ml Btl) 2 drop EYE-BOTH Q2H PRN PRN Reason: DRY EYE(S) Atropine Sulfate (Atropine 1% Op Soln 2 Ml Btl) 3 drop SUBLINGUAL Q4H PRN PRN Reason: Excessive Secretions, Rattling Budesonide (Budesonide 0.5 Mg/2 Ml Neb) 0.25 mg INHALATION BID.RESPIRATORY MANASA Last Admin: 12/23/24 09:08 Dose: Not Given Cefepime HCl (Cefepime 1,000 Mg Sdv) 1,000 mg IVP Q8H MANASA; Protocol Last Admin: 12/23/24 12:00 Dose: 1,000 mg Dexamethasone (Dexamethasone 4 Mg/Ml Inj) 6 mg IVP Q24H MANASA Last Admin: 12/22/24 18:28 Dose: 6 mg Enoxaparin Sodium (Enoxaparin 40 Mg/0.4 Ml Syringe) 40 mg SUBCUT Q24H MANASA Last Admin: 12/22/24 20:46 Dose: 40 mg Furosemide (Furosemide 10 Mg/Ml Sdv 2ml) 20 mg IVP Q24H MANASA Lactulose (Lactulose Oral Liq 20 Gm/30 Ml Udc) 10 gm PO DAILY PRN PRN Reason: CONSTIPATION Lidocaine (Lidocaine 5% Patch) 1 patch TOPICAL [id number] [facility] Last Admin: 12/23/24 08:11 Dose: 1 patch Morphine Sulfate (Morphine 4 Mg/Ml Sdv 1 Ml) 2 mg IVP Q4H PRN PRN Reason: SEVERE PAIN Last Admin: 12/23/24 06:04 Dose: 2 mg Ondansetron HCl (Ondansetron 2 Mg/Ml Sdv 2 Ml) 4 mg IVP Q8H PRN PRN Reason: vomiting, or N/V if npo Oxycodone HCl (Oxycodone 5 Mg Ir Tab/Cap) 20 mg PO QID PRN PRN Reason: pain Last Admin: 12/23/24 08:12 Dose: 20 mg Pantoprazole Sodium (Pantoprazole Dr 40 Mg Tablet) 40 mg PO DAILY [facility] Last Admin: 12/23/24 08:12 Dose: 40 mg Zolpidem Tartrate (Zolpidem 5 Mg Tablet) 10 mg PO BEDTIME PRN PRN Reason: sleep Discontinued Medications Ceftriaxone Sodium (Ceftriaxone 1,000 Mg Sdv) 1,000 mg IVP ONCE ONE; Protocol Stop: 12/21/24 11:20 Last Admin: 12/21/24 12:59 Dose: 1,000 mg Dexamethasone (Dexamethasone 4 Mg/Ml Inj) 6 mg IVP Q24H [facility] Last Admin: 12/21/24 22:40 Dose: 6 mg Glycopyrrolate (Glycopyrrolate 0.2 Mg/Ml Sdv 2 Ml) 0.2 mg IV Q4H PRN PRN Reason: Excessive Secretions, Rattling Azithromycin 500 mg/ Sodium (Chloride) 250 mls @ 250 mls/hr IV ONCE ONE; Protocol Stop: 12/21/24 12:18 Last Infusion: 12/21/24 19:25 Dose: Infused Dextrose/Sodium Chloride (Dextrose 5%-Sod Chloride 0.9%) 1,000 mls @ 50 mls/hr IV .Q20H [facility] Last Infusion: 12/23/24 09:40 Dose: 0 mls/hr Vancomycin HCl / Sodium (Chloride) 250 mls @ 0 mls/hr [id number] PROTOCOL [facility]; Protocol Vancomycin HCl (Vancocin) 1,250 mg in 250 mls @ 166.667 mls/hr IV Q8H [facility] Last Infusion: 12/22/24 13:04 Dose: Infused Lidocaine HCl 5 ml/ Potassium (Chloride) 105 mls @ 26.25 mls/hr IV ONCE ONE Stop: 12/23/24 12:59 Last Infusion: 12/23/24 14:21 Dose: Infused Iohexol (Iohexol 350 Mg/Ml 500 Ml Btl (Per Ml)) 0 ml IV ONCE ONE Stop: 12/21/24 13:42 Last Admin: 12/21/24 13:41 Dose: 170 ml Lidocaine (Lidocaine 5% Patch) 1 patch TOPICAL [id number] [facility] Last Admin: 12/22/24 20:45 Dose: 1 patch Lidocaine HCl (Lidocaine 2% Urojet 20 Ml) 20 ml TOPICAL ONCE ONE Stop: 12/22/24 18:55 Last Admin: 12/22/24 23:53 Dose: Not Given Lidocaine HCl (Lidocaine 2% Urojet 20 Ml) 20 ml TOPICAL ONCE ONE Stop: 12/22/24 23:46 Last Admin: 12/22/24 23:58 Dose: 20 ml Lorazepam (Lorazepam 2 Mg/Ml Inj 1 Ml) 1 - 2 mg IVP Q8H PRN PRN Reason: Anxiety, Agitation or Restless Lorazepam (Lorazepam 1 Mg Tablet) 1 mg PO Q6H PRN PRN Reason: NAUSEA AND VOMITING Morphine Sulfate (Morphine 4 Mg/Ml Sdv 1 Ml) 4 mg IVP ONCE ONE Stop: 12/21/24 12:59 Last Admin: 12/21/24 13:11 Dose: 4 mg Morphine Sulfate (Morphine 10 Mg/0.5 Ml Oral Liq Ud) 2 - 10 mg SUBLINGUAL Q2H PRN PRN Reason: Moderate To Severe Pain or SOB Naloxone HCl (Naloxone 0.4 Mg/Ml Sdv) 0.1 mg IVP Q2M PRN PRN Reason: OPIATERV Ondansetron HCl (Ondansetron 2 Mg/Ml Sdv 2 Ml) 4 mg IVP ONCE ONE Stop: 12/21/24 12:59 Last Admin: 12/21/24 13:11 Dose: 4 mg Allergies amoxicillin Allergy (Severe, Verified 12/18/24 14:30) ALGY-Rash Penicillins Allergy (Severe, Verified 12/18/24 14:30) ALGY-Rash bupropion (From Wellbutrin) Adverse Reaction (Severe, Verified 12/18/24 14:30) ADR-Itching Home Medications formoterol fumarate 20 mcg/2 mL solution for nebulization (Perforomist) 2 ml inhalation Q12H #120 mL 08/04/24 [Rx Confirmed 12/21/24] folic acid 1 mg tablet 1 mg PO DAILY #30 tabs 09/27/24 [Rx Confirmed 12/21/24] prochlorperazine maleate 10 mg tablet (Compazine) 10 mg PO Q6H PRN nausea and vomiting #30 tabs 09/27/24 [Rx Confirmed 12/21/24] ondansetron HCl 8 mg tablet See Rx Instructions .Route .COMPLEX #90 tabs 10/06/24 [Rx Confirmed 12/21/24] aspirin 81 mg tablet,delayed release (Adult Low Dose Aspirin) 81 mg PO DAILY 10/17/24 [History Confirmed 12/21/24] budesonide 0.25 mg/2 mL suspension for nebulization 0.25 mg inhalation BID 10/17/24 [History Confirmed 12/21/24] cyanocobalamin (vitamin B-12) 500 mcg tablet 500 mcg PO DAILY 10/17/24 [History Confirmed 12/21/24] ergocalciferol (vitamin D2) 1,250 mcg (50,000 unit) capsule 1,250 mcg PO .weekly #4 caps 11/05/24 [Rx Confirmed 12/21/24] Lactobacillus rhamnosus GG 20 billion cell capsule (Probiotic Digestive Care) See Rx Instructions PO .2 times day #60 caps 11/15/24 [Rx Confirmed 12/21/24] ipratropium bromide 42 mcg (0.06 %) nasal spray 2 spray intranasal TID #15 mL 11/15/24 [Rx Confirmed 12/21/24] sodium chloride 1,000 mg soluble tablet 1,000 mg PO DAILY #30 tabs 11/15/24 [Rx Confirmed 12/21/24] citalopram 20 mg tablet 20 mg PO DAILY #30 tabs 11/21/24 [Rx Confirmed 12/21/24] zolpidem 10 mg tablet (Ambien) 10 mg PO .at bedtime PRN sleep #30 tabs 12/01/24 [Rx Confirmed 12/21/24] atorvastatin 40 mg tablet (Lipitor) 40 mg PO DAILY #30 tabs 12/08/24 [Rx Confirmed 12/21/24] furosemide 40 mg tablet 40 mg PO QAM #30 tabs 12/08/24 [Rx Confirmed 12/21/24] metoprolol tartrate 25 mg tablet 25 mg PO BID #60 tabs 12/08/24 [Rx Confirmed 12/21/24] oxycodone 20 mg tablet 20 mg PO QID PRN pain 30 days #120 tabs 12/12/24 [Rx Confirmed 12/21/24] Discharge Plan Discharge Patient Disposition: Xfer Other Condition: Stable Prescriptions: No Action sodium chloride 1,000 mg tablet,soluble 1,000 mg PO DAILY Qty: 30 1RF ipratropium bromide 42 mcg (0.06 %) spray,non-aerosol 2 spray intranasal TID Qty: 15 0RF Rx Instructions: for runny nose Probiotic Digestive Care 20 billion cell capsule See Rx Instructions PO .2 times day Qty: 60 2RF Rx Instructions: 20 billion cell PO .2 times day; oxycodone 20 mg tablet 20 mg PO QID PRN (Reason: pain) 30 Days Qty: 120 0RF folic acid 1 mg tablet 1 mg PO DAILY Qty: 30 11RF prochlorperazine maleate [Compazine] 10 mg tablet 10 mg PO Q6H PRN (Reason: nausea and vomiting) Qty: 30 6RF aspirin [Adult Low Dose Aspirin] 81 mg tablet,delayed release (DR/EC) 81 mg PO DAILY cyanocobalamin (vitamin B-12) 500 mcg tablet 500 mcg PO DAILY budesonide 0.25 mg/2 mL suspension for nebulization 0.25 mg inhalation BID formoterol fumarate [Perforomist] 20 mcg/2 mL solution for nebulization 2 ml inhalation Q12H Qty: 120 5RF ondansetron HCl 8 mg tablet See Rx Instructions .ROUTE .COMPLEX Qty: 90 3RF Dose Instruction: TAKE ONE TABLET BY MOUTH THREE TIMES DAILY NEEDED FOR NAUSEA AND VOMITING Rx Instructions: TAKE ONE TABLET BY MOUTH THREE TIMES DAILY NEEDED FOR NAUSEA AND VOMITING ergocalciferol (vitamin D2) 1,250 mcg (50,000 unit) capsule 1,250 mcg PO .weekly Qty: 4 2RF citalopram 20 mg tablet 20 mg PO DAILY Qty: 30 2RF Rx Instructions: to improve mood zolpidem [Ambien] 10 mg tablet 10 mg PO .at bedtime PRN (Reason: sleep) Qty: 30 2RF furosemide 40 mg tablet 40 mg PO QAM Qty: 30 0RF Rx Instructions: TAKE ONE TABLET BY MOUTH EVERY MORNING FOR EDEMA atorvastatin [Lipitor] 40 mg tablet 40 mg PO DAILY Qty: 30 1RF metoprolol tartrate 25 mg tablet 25 mg PO BID Qty: 60 1RF Referrals: [facility] [Outside] Seb Butt MD [Primary Care Provider] - Patient Instructions: Opioid Safety Transfer Attestations Time Spent in Transfer Care: greater than 30 min Status at Transfer: Cognitive status at transfer: cognitively intact ; Behavioral status at transfer: cooperative ; Quality Metrics Clinical Quality Measures [ No reported AMI, CVA or VTE this stay] Coding Level of Care Code Acute Code for Chg Fwd Diagnoses Dehydration E86.0 Cancer cachexia R64 Pneumonia J18.9 Metastatic lung cancer (metastasis from lung to other site) C34.90 Acute respiratory failure with hypoxemia J96.01 Hepatic encephalopathy K76.82 Anasarca R60.1
[2024-12-23] MEDS: dexamethasone 4 mg/mL INJ 6 MG IVP (16:03)
[2024-12-23] MEDS: lactulose oral liq 20 gm/30 mL UDC PO (16:03)
[2024-12-23] MEDS: FUROsemide 10 mg/mL SDV 2mL 20 MG IVP (16:04)
[2024-12-23] MEDS: metoprolol tartrate 25 mg Tablet 12.5 MG PO (17:40)
[2024-12-23] MEDS: budesonide 0.5 mg/2 mL Neb 0.25 MG INHALATION (19:49)
--- NOTE | 2024-12-23 22:08 | PC.NURSE ---
Floor nurse called [facility] to give report to them about the patient at 2029. Spoke with charge nurse Reginaldo Rice RN who took report on the patient. EMS arrived to the facility at 2144 to pick patient up. Patients family was still here and was able to sign paperwork for the patient due to being confused and not able to sign. EMS left the med surg floor with patient at 2201. Floor nurse called [facility] and spoke with Reginaldo Rice RN about the time patient left the floor. Family is still here in the patients old room collecting their belongings. The only personal item sent with the patient was the patients glasses and was given to EMS.
--- NOTE | 2024-12-23 22:15 | PC.NURSE ---
Only item sent with the patient was their glasses. The patients family will pack and gather all of the patients other belongings.
== END 2024-12-23 22:00 | disposition short-term general hospital (02) | DRG 189 ==
LOC: ER 17:16 → MEDSURG 17:48
PROVIDERS: Admitting Provider Student in an Organized Health Care Education/Training Program; Emergency Provider Emergency Medicine; PCP Internal Medicine Medical Oncology; Visit Provider Student in an Organized Health Care Education/Training Program
DX: J96.21 Acute and chronic respiratory failure with hypoxia (principal); J18.9 Pneumonia, unspecified organism; R64 Cachexia; J44.0 Chronic obstructive pulmonary disease with (acute) lower respiratory infection; C79.51 Secondary malignant neoplasm of bone; C78.7 Secondary malignant neoplasm of liver and intrahepatic bile duct; C34.12 Malignant neoplasm of upper lobe, left bronchus or lung; I50.32 Chronic diastolic (congestive) heart failure; C77.1 Secondary and unspecified malignant neoplasm of intrathoracic lymph nodes; I11.0 Hypertensive heart disease with heart failure; E11.42 Type 2 diabetes mellitus with diabetic polyneuropathy; Z66 Do not resuscitate; R62.7 Adult failure to thrive; E86.0 Dehydration; Z68.30 Body mass index [BMI] 30.0-30.9, adult; K76.82 Hepatic encephalopathy; I25.10 Atherosclerotic heart disease of native coronary artery without angina pectoris; F17.210 Nicotine dependence, cigarettes, uncomplicated; Z95.5 Presence of coronary angioplasty implant and graft; Z90.49 Acquired absence of other specified parts of digestive tract; Z11.52 Encounter for screening for COVID-19; Z79.899 Other long term (current) drug therapy; Z79.82 Long term (current) use of aspirin; Z88.0 Allergy status to penicillin; Z88.8 Allergy status to other drugs, medicaments and biological substances; Z99.81 Dependence on supplemental oxygen
CPT/HCPCS: 36415; 36600; 70450; 71045; 71275; 74177; 80051; 80053; 82140; 82330; 82805; 83880; 85025; 85610; 87040; 87637; 93005; 94640; 94660; 96365; 96372; 96375; 99291; J0456; J0692; J0696; J1100; J1650; J1940; J2270; J2405; J3370; J3480; J7042; J7050; J7613; J7626; J9999